=== PATIENT | female | born 2005 | race Caucasian/White ===

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

== ENCOUNTER 2024-01-19 15:50 | Outpatient (CLI) | payer BC, SELFPAY ==
[2024-01-20 10:24] LABS: HIV (1&2) Antibody Rapid NON REACTIVE
[2024-01-21 13:02] LABS: HCV Ab Non Reactive (Non Reactive); Hepatitis B Surface Antigen Negative (Negative); Rapid Plasma Reagin Ab Titer Non Reactive titer (NonRea<1:1)
== END 2024-01-19 23:59 | disposition home or self-care (01) ==
LOC: LAB 15:51
PROVIDERS: PCP Physician Assistant; Visit Provider Obstetrics & Gynecology
DX: Z72.51 High risk heterosexual behavior (principal); Z01.84 Encounter for antibody response examination
CPT/HCPCS: 36415; 86593; 87340

== ENCOUNTER 2024-03-10 09:18 | Outpatient (CLI) | payer BC, SELFPAY ==
[2024-03-10 09:38] VITALS: BMI 21.2
[2024-03-10] MEDS: TUBERCULIN 5 UNITS/0.1ML 1ML VIAL ID (09:40)
== END 2024-03-10 23:59 | disposition home or self-care (01) ==
LOC: UTC.OUT 09:19
PROVIDERS: PCP Physician Assistant; Visit Provider Nurse Practitioner Family
DX: Z11.1 Encounter for screening for respiratory tuberculosis (principal)
CPT/HCPCS: 86580

== ENCOUNTER 2024-04-24 14:39 | Emergency (ER) | payer BC, SELFPAY ==
[2024-04-24 14:50] VITALS: BP 114/67; PULSE 82; RESP 20; TEMP 37; O2SAT 100; BMI 24.3
--- NOTE | 2024-04-24 15:01 | EXP.UTC ---
Discharge Plan Disposition Patient Disposition: Home, Self-Care Condition: Good Prescriptions Prescriptions: No Action Slynd 4 mg (28) tablet 4 mg PO DAILY Qty: 84 3RF propranolol 120 mg capsule,extended release 24hr See Rx Instructions .ROUTE .COMPLEX Qty: 90 0RF Dose Instruction: TAKE 1 CAPSULE BY MOUTH ONCE DAILY Rx Instructions: TAKE 1 CAPSULE BY MOUTH ONCE DAILY modafinil [Provigil] 200 mg tablet 200 mg PO DAILY Qty: 30 0RF Referrals Follow up/Referrals: Nataly Olvera PA [Primary Care Provider] - See instructions Activity Restrictions/Add. Instructions Additional Instructions/Restrictions: Go home lay down and sleep off remainder of migraine headache Follow up with your Family Doctor if Migraines continued to occur Return if needed Straight to ER if any life threatening symptoms Clinical Impressions Clinical Impression: Migraine Instructions Patient Instructions: Migraine -- Adult, DI for Migraine Print Language Print Language: Lebanese Discharge ED Provider: Aurora Rodriguez [facility] [place] Stated complaint: migraine headache Mode of Arrival: Ambulatory Source of Information: Patient and Parent(s) Limitations: No Limitations Time Seen by Provider: 04/24/24 15:01 Description of Symptoms (Recalled from Triage Doc. by RN): PATIENT C/O MIGRAINE X 1 WEEK HEENT Symptoms (Recalled from RN notes): Yes Resp Symptoms (Recalled from RN notes): No Skin Symptoms (Recalled from RN notes): No MS Symptoms (Recalled from RN notes): No Functional Status (Recalled from RN notes): WNL History of Present Illness Provider Complaint: Patient states that she has a hx of migraine headaches and she has had one for about a week and has harika putting off coming in and getting the migraine cocktail that usually helps her but today it was still bothering her so she came in to get the migraine cocktail to help with her migraine, States this headache is like others she has had in the past Related Data Previous Rx's ?Medication ?Instructions ?Recorded propranolol 120 mg capsule,24 See Rx Instructions .Route 01/08/24 hr,extended release .COMPLEX #90 caps drospirenone (contraceptive) 4 mg 4 mg PO DAILY control #84 01/19/24 (28) tablet (Slynd) tabs Provigil 200 mg tablet (modafinil) 200 mg PO DAILY #30 tabs 04/15/24 Allergies Allergy/AdvReac Type Severity Reaction Status Date / Time azithromycin [From ZITHROMAX] Allergy Unknown Verified 01/19/24 14:54 ibuprofen AdvReac Verified 01/19/24 14:54 Worker's Comp Is this a Worker's Comp case?: No [facility] Disclaimer: The information contained in this section may have been updated after the patient was seen, as this information can be updated by other users. Medical History Urinary tract infection Kidney stone Migraine Bartholin's gland abscess Vitamin D deficiency Surgical History History of tonsillectomy History of appendectomy Social History Smoking Status: Never smoker second hand exposure: No alcohol intake: never substance use type: denies use current occupational status: employed and student Travel in the last 8 weeks: None household members: family housing: house current occupation: [employer] current occupational exposures/hazards: No caffeine: Yes ROS Obtained: Yes All systems reviewed & no additional complaints except as documented and Yes Systems reviewed as appropriate & no additional complaints except as documented Constitutional Constitutional: Reports system reviewed and no additional complaints, except as documented, Reports as per HPI and Reports headache(s) Eyes Eyes: Reports system reviewed and no additional complaints, except as documented, Reports as per HPI, Denies blurry vision, Denies change in vision and Denies loss of vision ENT Ears, Nose, Mouth, and Throat: Reports system reviewed and no additional complaints, except as documented, Reports as per HPI and Reports headache(s) Cardiovascular Cardiovascular: Reports system reviewed and no additional complaints, except as documented and Reports as per HPI Respiratory Respiratory: Reports system reviewed and no additional complaints, except as documented and Reports as per HPI Gastrointestinal Gastrointestingal: Reports system reviewed and no additional complaints, except as documented and as per HPI Neurologic Neurologic: Reports headache(s) and Denies loss of vision Physical Exam General General appearance: alert and in no apparent distress Head Head exam: atraumatic and normocephalic Eye Eye exam: Present normal appearance, PERRL and EOMI ENT ENT exam: Present mucous membranes moist Neck Neck exam: Present normal inspection, full ROM and trachea midline; Absent tenderness Chest Chest inspection: Present normal inspection and symmetric chest wall rise Respiratory Respiratory exam: Present normal lung sounds bilaterally; Absent respiratory distress or wheezes Cardiovascular Cardiovascular exam: Present regular rate, normal rhythm and normal heart sounds Neurological Exam Neurological exam: Present alert, oriented X3 and normal gait Medical Decision Making Medical Records Screening: Per USPSTF and CDC recommendations, given the prevalence of disease in our region, it is our hospital?s policy to screen for HIV and viral Hepatitis for all patients aged 18 and over and those with ongoing risk factors. Yonathan Inquiry Pt receiving controlled substance: No Yonathan was queried for this patient: No Vital Signs: 04/24/24 14:50 Temperature 98.6 F Temperature Source Oral Pulse Rate [Left Brachial] 82 Respiratory Rate 20 Blood Pressure [Left Arm] 114/67 Blood Pressure Mean [Left Arm] 82 Blood Pressure Source [Left Arm] Automatic Cuff Blood Pressure Position [Left Arm] Sitting 02 Sat by Pulse Oximetry 100 Oxygen Delivery Method Room Air Lab Data Lab results reviewed: Yes I reviewed the patient's lab results. Medical Decision Narrative: Patient states that she cannot take oral Ibuprofen it hurts her stomach but has taken Toradol in the past without complications or reactions
[2024-04-24] MEDS: KETOROLAC 30MG/ML VIAL 30 MG IM (15:27)
[2024-04-24] MEDS: ONDANSETRON 4MG ODT 4 MG SL (15:27)
[2024-04-24] MEDS: diphenhydrAMINE 50MG/ML VIAL 25 MG IM (15:27)
[2024-04-24 15:28] LABS: UTC Pregnancy Test, Urine Negative (Negative)
[2024-04-24 15:39] VITALS: BP 114/67; PULSE 82; RESP 20; TEMP 37; O2SAT 100
== END 2024-04-24 15:43 | disposition home or self-care (01) ==
PROVIDERS: Emergency Provider Nurse Practitioner; PCP Physician Assistant
DX: G43.909 Migraine, unspecified, not intractable, without status migrainosus (principal)
CPT/HCPCS: 81025; 96372; 99212; 99214; G0463; J1200; J1885; Q0162

== ENCOUNTER 2024-05-08 08:29 | Emergency (ER) | payer BC, SELFPAY ==
[2024-05-08 08:45] VITALS: BP 137/83; PULSE 75; RESP 20; TEMP 37.2; O2SAT 100; BMI 24.3
--- NOTE | 2024-05-08 09:00 | ED_ITS ---
Discharge Plan Disposition Patient Disposition: Home, Self-Care Condition: Good Prescriptions Prescriptions: New metronidazole 500 mg tablet 500 mg PO BID 7 Days Qty: 14 0RF fluconazole 150 mg tablet 150 mg PO Q3D Qty: 2 0RF Rx Instructions: Take one now and may repeat in 3 days (72 hours) if still having symptoms No Action Slynd 4 mg (28) tablet 4 mg PO DAILY Qty: 84 3RF modafinil [Provigil] 200 mg tablet 200 mg PO DAILY Qty: 30 0RF propranolol 120 mg capsule,extended release 24 hr 120 mg PO DAILY Rx Instructions: TAKE 1 CAPSULE BY MOUTH ONCE DAILY Referrals Follow up/Referrals: Nataly Olvera PA [Primary Care Provider] - See instructions Activity Restrictions/Add. Instructions Additional Instructions/Restrictions: Take medication as prescribed Follow up with OBGYN if no improvement or any worsening of symptoms Your Testing should be back in the next 3-5 days follow up for treatment if anything was positive Follow up with Family Doctor if needed Clinical Impressions Clinical Impression: Vaginal Discharge Instructions Patient Instructions: Metronidazole, DI for Bacterial Vaginosis Print Language Print Language: Turkish Discharge ED Provider: Aurora Rodriguez [facility] [place] General Stated complaint: tested for bv urine std Mode of Arrival: Ambulatory Source of Information: Patient Limitations: No Limitations Time Seen by Provider: 05/08/24 09:00 Description of Symptoms (Recalled from Triage Doc. by RN): PATIENT REQUESTING BV AND STD TESTING HEENT Symptoms (Recalled from RN notes): No Resp Symptoms (Recalled from RN notes): No Skin Symptoms (Recalled from RN notes): No MS Symptoms (Recalled from RN notes): No Functional Status (Recalled from RN notes): WNL History of Present Illness Provider Complaint: Patient states that she thinks she may have BV states that she has been having a water discharge and noticed a foul smell States feels like she can smell herself just sitting there states she has had BV a couple times and feels like it does then Also wants to get checked for STD's Related Data Home Medications ?Medication ?Instructions ?Recorded ?Confirmed propranolol 120 mg capsule,24 120 mg PO DAILY 05/08/24 05/08/24 hr,extended release Previous Rx's ?Medication ?Instructions ?Recorded drospirenone (contraceptive) 4 mg 4 mg PO DAILY control #84 01/19/24 (28) tablet (Slynd) tabs Provigil 200 mg tablet (modafinil) 200 mg PO DAILY #30 tabs 04/15/24 fluconazole 150 mg tablet 150 mg PO Q3D 2 doses #2 tabs 05/08/24 metronidazole 500 mg tablet 500 mg PO BID 7 days #14 tabs 05/08/24 Allergies Allergy/AdvReac Type Severity Reaction Status Date / Time azithromycin [From ZITHROMAX] Allergy Unknown Verified 01/19/24 14:54 ibuprofen AdvReac Verified 01/19/24 14:54 Worker's Comp Is this a Worker's Comp case?: No [facility] Disclaimer: The information contained in this section may have been updated after the patient was seen, as this information can be updated by other users. Medical History Urinary tract infection Kidney stone Migraine Bartholin's gland abscess Vitamin D deficiency Surgical History History of tonsillectomy History of appendectomy Social History Smoking Status: Never smoker second hand exposure: No alcohol intake: never substance use type: denies use current occupational status: employed and student Travel in the last 8 weeks: None household members: family housing: house current occupation: [employer] current occupational exposures/hazards: No caffeine: Yes ROS Obtained: Yes All systems reviewed & no additional complaints except as docu mented and Yes Systems reviewed as appropriate & no additional complaints except as documented Constitutional Constitutional: Reports system reviewed and no additional complaints, except as documented and Reports as per HPI ENT Ears, Nose, Mouth, and Throat: Reports system reviewed and no additional c omplaints, except as documented and Reports as per HPI Cardiovascular Cardiovascular: Reports system reviewed and no additional complaints, except as documented and Reports as per HPI Respiratory Respiratory: Reports system reviewed and no additional complaints, except as documented and Reports as per HPI Gastrointestinal Gastrointestingal: Reports system reviewed and no additional complaints, except as documented and as per HPI Genitourinary Female Genitourinary: Reports system reviewed and no additional complaints, except as documented, Reports as per HPI, Reports vaginal discharge (watery discharge), Reports vaginal odor and Reports vaginal pruritus Physical Exam General General appearance: alert and in no apparent distress ENT ENT exam: Present mucous membranes moist Respiratory Respiratory exam: Present normal lung sounds bilaterally; Absent respiratory distress or wheezes Cardiovascular Cardiovascular exam: Present regular rate, normal rhythm and normal heart sounds External exam: Present other (deferred) Neurological Exam Neurological exam: Present alert, oriented X3 and normal gait Medical Decision Making Medical Records Screening: Per USPSTF and CDC recommendations, given the prevalence of disease in our region, it is our hospital?s policy to screen for HIV and viral Hepatitis for all patients aged 18 and over and those with ongoing risk factors. Yonathan Inquiry Pt receiving controlled substance: No Yonathan was queried for this patient: No Vital Signs: 05/08/24 08:45 Temperature 98.9 F Temperature Source Oral Pulse Rate [Left Brachial] 75 Respiratory Rate 20 Blood Pressure [Left Arm] 137/83 Blood Pressure Mean [Left Arm] 101 Blood Pressure Source [Left Arm] Automatic Cuff Blood Pressure Position [Left Arm] Sitting 02 Sat by Pulse Oximetry 100 Oxygen Delivery Method Room Air Medical Decision Narrative: Patient reports whiteish watery discharge itching with foul odor with hx of BV reports feels like it did when she had BV
[2024-05-08 09:15] VITALS: BP 137/83; PULSE 75; RESP 20; TEMP 37.2; O2SAT 100
[2024-05-11 02:15] LABS: Neisseria gonorrhoeae, NAA Negative (Negative); Trichomonas Vaginalis, NAA Negative (Negative)
== END 2024-05-08 09:18 | disposition home or self-care (01) ==
PROVIDERS: Emergency Provider Nurse Practitioner; PCP Physician Assistant
DX: R87.9 Unspecified abnormal finding in specimens from female genital organs (principal)
CPT/HCPCS: 87491; 87591; 87661; 99213; G0381

== ENCOUNTER 2024-05-12 15:24 | Outpatient (CLI) | payer BC, SELFPAY ==
[2024-05-12 15:59] LABS: Basophils # 0.1 K/mm3 (0-0.2); Basophils % 0.6 % (0.1-2.0); Eosinophils # 0.2 K/mm3 (0.0-0.4); Eosinophils % 2.2 % (0.1-12.0); Hematocrit 44.7 % (37.0-47.0); Hemoglobin 15.2 g/dL (12.2-16.2); Lymphocytes # 2.4 K/mm3 (0.7-4.5); Lymphocytes % 24.6 % (10-50); Mean Corpuscular Hemoglobin 32.7 pg (27.0-31.2); Mean Corpuscular Volume 96.3 fl (81-99); Mean Platelet Volume 9.2 fl (7.4-10.4); Monocytes # 0.7 K/mm3 (0.1-1.0); Monocytes % 6.9 % (1.7-9.3); Neutrophils # 6.3 K/mm3 (1.8-7.8); Neutrophils % 65.8 % (37.0-80.0); Platelet Count 236 K/mm3 (142-424); Red Blood Count 4.65 M/mm3 (4.20-5.40); Red Cell Distribution Width 13.2 % (11.5-17.5); White Blood Count 9.6 K/mm3 (4.5-13.0)
[2024-05-12 16:24] LABS: Alanine Aminotransferase 12 U/L (12-78); Albumin Level 4.5 g/dl (3.5-5.0); Alkaline Phosphatase 37 U/L (38-126); Anion Gap 10.4 mEq/L (5-15); Aspartate Amino Transferase 20 U/L (14-36); Bilirubin,Total 0.5 mg/dl (0.2-1.3); Blood Urea Nitrogen 12 mg/dl (7-17); Calcium 9.4 mg/dl (8.4-10.2); Carbon Dioxide 26 mmol/L (22.0-30.0); Chloride 107 mmol/L (98-107); Estimated Glomerular Filt Rate 107 ml/min (>60); GFR (African American) 129 ML/MIN (>60); Globulin 2.3 g/dL (1.3-3.2); Glucose 82 mg/dl (74-100); Potassium 4.4 mmoL/L (3.5-5.1); Sodium 139 mmol/L (136-145); Total Protein,Serum 6.8 g/dl (6.3-8.2)
[2024-05-12 16:50] LABS: HCG,Quantitative < 2 mIU/ml (0-5.42)
== END 2024-05-12 23:59 | disposition home or self-care (01) ==
LOC: LAB 15:25
PROVIDERS: PCP Physician Assistant; Visit Provider Obstetrics & Gynecology
DX: N75.1 Abscess of Bartholin's gland (principal); Z01.818 Encounter for other preprocedural examination
CPT/HCPCS: 36415; 80053; 84702; 85025

== ENCOUNTER 2024-05-13 10:32 | Day surgery (SDC) | payer BC, SELFPAY ==
[2024-05-12 16:17] VITALS: BMI 24.3
[2024-05-13 10:58] VITALS: BP 117/59; PULSE 76; RESP 18; TEMP 36.9; O2SAT 99
--- NOTE | 2024-05-13 11:01 | EXP.ANES.CKL ---
[facility] Disclaimer: The information contained in this section may have been updated after the patient was seen, as this information can be updated by other users. Medical History Bartholin's gland abscess Urinary tract infection Kidney stone Migraine Vitamin D deficiency Surgical History History of tonsillectomy History of appendectomy Family History Other Family history of DVT Family history of stroke Social History Smoking Status: Never smoker second hand exposure: No alcohol intake: never substance use type: denies use current occupational status: employed and student Travel in the last 8 weeks: None household members: family housing: house current occupation: [employer] current occupational exposures/hazards: No caffeine: Yes [facility] Anesthesia Checklist Patient Identification Patient Identification: Arm Band, Family and Verbal (Name & ) Structural Data Admitted From: Home Planned Operative Procedure/s: I&D Bartholin's cyst Consent for Planned Operative Procedure(s) Verified: Yes Verified Documents: Surgical Consent and History and Physical NPO Status Verified Time NPO: 23:00 Chart Verification Results Verified: CBC, BMP, Chest Xray and HCG Additional verifications Patient : No Anesthesia Reactions: No Cardiovascular Assessment Heart Sounds: S1 & S2 Pulse Rhythm: Irregular Peripheral Edema: No Airway Assessment Mallampati Score:: Class II C-Spine Mobility Assessed: Yes (FROM demonstrated) TMJ Mobility Assessed: Yes Dentition: Good Dentition (Nothing loose per pt.) Neurological Assessment Level of Consciousness: Awake, Alert, Appropriate and Follows Commands Hx Seizures: No Numbness or tingling in extremities: No Anesthesia Plan Anesthesia Risk discussed: Yes Anesthesia Plan: Verified ASA Class: II Anesthesia Type: General
[2024-05-13] MEDS: LIDOCAINE 1% W/EPI 1:100,000 20ML VIAL 20 ML (12:23)
[2024-05-13 12:44] VITALS: BP 87/44; PULSE 85; RESP 15; TEMP 36.6; O2SAT 95
--- NOTE | 2024-05-13 12:51 | EXP.OP.NOTE ---
Date of procedure: 05/13/24 Pre-op Diagnosis:: 4 cm right Bartholin gland abscess Post-op Diagnosis:: 4 cm right Bartholin gland abscess Procedure performed:: Right Bartholin gland incision and drainage Surgeon:: Marian Dubon DO Mandarin Tutor(s):: Liseth Levi DO ENGINEERING SPECIALIST:: Junie Carlos Anesthesia: other (See anesthesia documentation) Estimated blood loss (mL): 10 Clinical Note:: Karol Lockhart is a 19-year-old G0 who presents the office with severe right vaginal/vulvar pain. 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 She was started on pain medication and p.o. antibiotics yesterday. Patient was thoroughly consented and elected to proceed with in OR for incision and drainage. The patient was counseled on the risk of recurrence and encouraged to proceed with marsupialization but declined. Operative findings:: Large 4 cm right Bartholin gland abscess with purulent drainage. Operative note:: The patient was prepped and draped in a sterile fashion using yellowfin stirrups and placed in the dorsolithotomy position. A timeout was performed. The site was anesthetized with 1% lidocaine with epinephrine. A small 1 cm linear incision was made and the abscess was expressed. Wound cultures were collected. The abscess was thoroughly explored with a hemostat to ensure all loculations were removed. The area was copiously irrigated with a liter of saline via an Asepto syringe. There is a small amount of bleeding from the skin edges which were made hemostatic with the Bovie and 2 simple interrupted 4-0 Vicryl stitches. No packing was required. She was awakened from anesthesia in stable. Patient will be discharged home Condition: stable Disposition: same day Complications:: None
[2024-05-13 12:54] VITALS: BP 89/41; PULSE 87; RESP 16; O2SAT 100
[2024-05-13 13:05] VITALS: BP 92/43; PULSE 82; RESP 16; O2SAT 100
[2024-05-13 13:15] VITALS: BP 120/44; PULSE 84; RESP 16; O2SAT 100
[2024-05-13 13:25] VITALS: BP 117/48; PULSE 85; RESP 16; O2SAT 100
== END 2024-05-13 13:56 | disposition home or self-care (01) ==
PROVIDERS: PCP Physician Assistant; Visit Provider Obstetrics & Gynecology
PROC: (CPT 56420; principal; 2024-05-13 12:00)
DX: N75.1 Abscess of Bartholin's gland (principal)
CPT/HCPCS: 56420; 87070; 87075; 87205; J1100; J1885; J2250; J2405; J3010

== ENCOUNTER 2024-08-17 13:44 | Outpatient (CLI) | payer OTHER, SELFPAY ==
[2024-08-17 14:10] VITALS: BMI 24.7
[2024-08-17 14:32] LABS: Basophils % 0.4 % (0.1-2.0); Eosinophils # 0.1 K/mm3 (0.0-0.4); Hematocrit 39.8 % (37.0-47.0); Hemoglobin 13.4 g/dL (12.2-16.2); Lymphocytes # 2.1 K/mm3 (0.7-4.5); Lymphocytes % 31.1 % (10-50); Mean Corpuscular HGB Conc 33.7 g/dL (31.8-35.4); Mean Corpuscular Hemoglobin 31.4 pg (27.0-31.2); Mean Corpuscular Volume 93.2 fl (81-99); Mean Platelet Volume 11.4 fl (7.4-10.4); Monocytes # 0.6 K/mm3 (0.1-1.0); Monocytes % 8.5 % (1.7-9.3); Neutrophils % 58.7 % (37.0-80.0); Platelet Count 252 K/mm3 (142-424); Red Blood Count 4.27 M/mm3 (4.20-5.40); Red Cell Distribution Width 12.5 % (11.5-17.5); White Blood Count 6.9 K/mm3 (4.5-13.0)
[2024-08-17 14:34] LABS: Albumin Level 4.4 g/dl (3.5-5.0); Chloride 107 mmol/L (98-107); Potassium 4.1 mmoL/L (3.5-5.1); Sodium 141 mmol/L (136-145)
[2024-08-17 14:36] LABS: Blood Urea Nitrogen 8 mg/dl (7-17); Creatinine Clearance Estimated 129 mL/min (50-200); Estimated Glomerular Filt Rate 107 ml/min (>60); GFR (African American) 129 ML/MIN (>60)
[2024-08-17 14:37] LABS: Alanine Aminotransferase 17 U/L (12-78); Albumin/Globulin Ratio 1.8 (1.1-1.8); Alkaline Phosphatase 46 U/L (38-126); Anion Gap 12.1 mEq/L (5-15); Aspartate Amino Transferase 21 U/L (14-36); Bilirubin,Total 0.3 mg/dl (0.2-1.3); Calcium 9.1 mg/dl (8.4-10.2); Carbon Dioxide 26 mmol/L (22.0-30.0); Globulin 2.4 g/dL (1.3-3.2); Glucose 86 mg/dl (74-100); Total Protein,Serum 6.8 g/dl (6.3-8.2)
[2024-08-17 14:55] LABS: HCG,Quantitative < 2 mIU/ml (0-5.42)
== END 2024-08-17 23:59 | disposition home or self-care (01) ==
LOC: PREOP 13:45
PROVIDERS: PCP Physician Assistant; Visit Provider Obstetrics & Gynecology
DX: N75.1 Abscess of Bartholin's gland (principal)
CPT/HCPCS: 80053; 84702; 85025

== ENCOUNTER 2024-08-18 10:42 | Day surgery (SDC) | payer OTHER, SELFPAY ==
[2024-08-17 14:11] VITALS: BMI 24.7
[2024-08-18] VITALS (15 sets, daily range): BP systolic 109–148; BP diastolic 58–82; PULSE 74–112; RESP 10–16; TEMP 36.3–36.9; O2SAT 98–100
[2024-08-18] MEDS: LACTATED RINGERS 1000ML 1,000 ML 25 ML IV (11:13)
--- NOTE | 2024-08-18 11:27 | EXP.ANES.CKL ---
[facility] Disclaimer: The information contained in this section may have been updated after the patient was seen, as this information can be updated by other users. Medical History Bartholin's gland abscess Urinary tract infection Kidney stone Migraine Vitamin D deficiency Surgical History (Updated 08/17/24 @ 13:59 by Slim Bejarano RN) History of eye surgery History of surgical removal of Bartholin’s gland cyst History of tonsillectomy History of appendectomy Family History Other Family history of DVT Family history of stroke Social History Smoking Status: Never smoker second hand exposure: No alcohol intake: never substance use type: denies use current occupational status: employed and student Travel in the last 8 weeks: None household members: family housing: house current occupation: [employer] current occupational exposures/hazards: No caffeine: Yes Have you lived/traveled outside [place] in past 30 days?: No Contact w/someone who lives/traveled outside US past 30 days?: No Exposure to someone with infectious disease in past 14 days?: No Do you have a fever (greater than 100.4 F or 38 C)?: No Have you tested positive for COVID-19: No Exposed to someone with COVID-19 in past 14 days?: No Do you have a sore throat?: No Do you have a cough?: No Do you have any weakness?: No Do you have any diarrhea?: No Are you experiencing any unusual bleeding?: No Do you have any muscle aches/pain?: No Do you have any abdominal pain?: No Are you experiencing loss of taste or smell?: No [facility] Anesthesia Checklist Patient Identification Patient Identification: Arm Band and Family Structural Data Admitted From: Home Planned Operative Procedure/s: I & D Bartholin abscess. Consent for Planned Operative Procedure(s) Verified: Yes Verified Documents: Surgical Consent and History and Physical NPO Status Verified Time NPO: 00:00 Additional verifications Patient : No Anesthesia Reactions: No Hx Blood Transfusions: No Blood Transfusion Reaction: No Cephalosporin Allergy: No Previous Colonoscopy: No Airway Assessment Mallampati Score:: Class II C-Spine Mobility Assessed: Yes TMJ Mobility Assessed: Yes Neurological Assessment Level of Consciousness: Awake, Alert, Appropriate and Follows Commands Hx Seizures: No Numbness or tingling in extremities: No Anesthesia Plan Anesthesia Risk discussed: Yes ASA Class: I Anesthesia Type: General
[2024-08-18] MEDS: LIDOCAINE 1% W/EPI 1:100,000 20ML VIAL 20 ML (12:35)
--- NOTE | 2024-08-18 13:09 | EXP.ANES.I ---
[facility] Anesthesia Record Part I Anesthesia Record I Intake, IV Amount: 200 Hydration: Adequate Estimated blood loss (mL): 4 Urine output (mL): 0 Blood Products used (#): none Blood Pressure: 116/70 SaO2: 100 Pulse Rate: 88 Airway Patency: Patent Respiratory Rate: 10 Temperature: 97.7 F Patient is:: Drowsy and Stable Stable to PACU at:: 13:05
--- NOTE | 2024-08-18 13:16 | P.OP_ITS ---
Date of procedure: 08/18/24 Pre-op Diagnosis:: Left Bartholin gland abscess Post-op Diagnosis:: Left Bartholin gland abscess Procedure performed:: Bartholin glands marsupialization Surgeon:: Marian Dubon DO First Assist(s):: Liseth Levi DO SENIOR APPLICATIONS ARCHITECT:: Enoc Buckner Anesthesia: GETA Estimated blood loss (mL): 50 Operative findings:: Once the patient was prepped and draped under anesthesia a thorough vaginal exam was completed and the area was noted to have started to spontaneously drain and was significantly reduced in size from exam in the office the prior day Operative note:: Karol was taken to the operating room and prepped and draped in the normal sterile fashion. She was placed in the dorsolithotomy position using yellowfin stirrups. SCDs were placed. She was placed in slight Trendelenburg for better visualization. The area was numbed with 8 mL of lidocaine with epinephrine. A thorough vaginal exam was completed and the abscess was less than 1 cm. An incision was made over the apex of the abscess, approximately 1 cm in length. The cyst wall was grasped and gently dissected and then transected. There was no purulent material that was able to be drained. Using a 2-0 Vicryl the cyst wall was marsupialized to the vaginal epithelial tissue. This concluded the procedure and the patient was taken to the recovery room in stable condition. All counts were correct x 2, per nursing. Condition: stable Disposition: PACU Complications:: None
[2024-08-18] MEDS: KETOROLAC 30MG/ML VIAL 30 MG IV (13:40)
[2024-08-18] MEDS: MORPHINE 2MG/ML SYRINGE 1 MG IV ×2 (13:46→13:51)
[2024-08-18] MEDS: HYDROMORPHONE 2MG/ML SYRINGE 0.5 MG IV ×4 (14:01→14:20)
--- NOTE | 2024-08-18 15:24 | P.PNANES_ITS ---
[facility] Anesthesia Record Part II Anesthesia Record Part II Discharge Time: 14:35 Destination: Surgical Day Care (OP Surgery) PACU nurse assessment reviewed?: Yes Patient Condition:: Good Anesthesia Complications:: None Swallowing reflex intact?: Yes Airway Patency: Patent Cyanosis?: No Blood Pressure: 139/62 SaO2: 98 Respiratory Rate: 16 Pulse Rate: 112 Temperature: 98.5 F Mental Status: Alert & Oriented Pain level:: 6 Nausea and/or vomitting:: None Intake, IV Amount: 0 Hydration: Adequate
== END 2024-08-18 15:20 | disposition home or self-care (01) ==
LOC: OR 10:43
PROVIDERS: PCP Physician Assistant; Visit Provider Obstetrics & Gynecology
PROC: (CPT 56440; principal; 2024-08-18 12:00)
DX: N75.1 Abscess of Bartholin's gland (principal)
CPT/HCPCS: 56440; J1100; J1171; J1200; J1885; J2250; J2270; J2405; J3010; J7120

== ENCOUNTER 2024-11-01 16:16 | Outpatient (CLI) | payer OTHER, SELFPAY ==
[2024-11-02 15:14] LABS: H. pylori Stool Ag, EIA Negative (Negative)
[2024-11-08 15:32] LABS: Calprotectin, Fecal 401 ug/g (0-120)
== END 2024-11-01 23:59 | disposition home or self-care (01) ==
PROVIDERS: Internal Medicine; PCP Physician Assistant; Visit Provider Internal Medicine
DX: R19.7 Diarrhea, unspecified (principal)
CPT/HCPCS: 83993; 87338

== ENCOUNTER 2024-11-15 15:32 | Outpatient (CLI) | payer OTHER, SELFPAY ==
[2024-11-15 17:09] LABS: Albumin Level 4.5 g/dl (3.5-5.0); Chloride 108 mmol/L (98-107); Potassium 3.9 mmoL/L (3.5-5.1); Sodium 142 mmol/L (136-145)
[2024-11-15 17:12] LABS: Alanine Aminotransferase 18 U/L (12-78); Albumin/Globulin Ratio 1.9 (1.1-1.8); Alkaline Phosphatase 48 U/L (38-126); Anion Gap 10.9 mEq/L (5-15); Aspartate Amino Transferase 25 U/L (14-36); Bilirubin,Total 0.4 mg/dl (0.2-1.3); Blood Urea Nitrogen 11 mg/dl (7-17); Carbon Dioxide 27 mmol/L (22.0-30.0); Estimated Glomerular Filt Rate 107 ml/min (>60); GFR (African American) 129 ML/MIN (>60); Globulin 2.4 g/dL (1.3-3.2); Total Protein,Serum 6.9 g/dl (6.3-8.2)
[2024-11-15 17:13] LABS: Glucose 74 mg/dl (74-100)
== END 2024-11-15 23:59 | disposition home or self-care (01) ==
LOC: LAB 15:32
PROVIDERS: PCP Physician Assistant; Visit Provider Internal Medicine
DX: R19.5 Other fecal abnormalities (principal); R19.7 Diarrhea, unspecified
CPT/HCPCS: 36415; 80053

== ENCOUNTER 2025-02-20 16:46 | Outpatient (CLI) | payer OTHER, SELFPAY ==
--- OUTSIDE RECORDS SUMMARY | 2024-12-28 10:20 | XMS_ITS | Encounter Summary ---
Author Organization [facility] Address [address] [place] [address] Care Team Providers Care Produce Shipper Name Role Phone Nataly Olvera ISI Primary Care Provider [phone] Reason for Referral * Consultation (Routine) - Authorized Specialty Diagnoses / Procedures Referred By Candy jain Referred To Contact Diagnoses Diarrhea, unspecified type Chandrakant Mar MD [address] [address] Phone: tel: fax: Referral ID Status Reason Start Date Expiration Date V isits Requested Visits Authorized [id number] Authorized 12/28/2024 06/29/2026 1 1 * Imaging (Routine) - Closed Specialty Diagnoses / Procedures Referred By Candy jain Referred To Contact Gastroenterology Diagnoses Diarrhea, unspecified type Procedures Capsule Endoscopy Chandrakant Mar MD [address] [address] Phone: tel: fax: Referral ID Status Reason Start Date Expiration Date V isits Requested Visits Authorized [id number] Closed Specialty Services Required 12/28/2024 06/29/2026 1 1 Reason for Visit * Reason Comments Helicobacter positive gastritis Encounter Details Date Type Department Care Team (Late st Contact Info) Description 12/28/2024 10:20 AM EDT Office Visit [facility] [address] [place] [address] Iza Parks MD [address] [place] [address] Diarrhea, unspecified type (Primary Dx) Social History Tobacco Use Types Packs/Day Years Used Date Smoking Tobacco: Never Passive Smoke Exposure: Past Smokeless Tobacco: Never Tobacco Cessation:Counseling Given: Not Answered Alcohol Use Standard Drinks/Week Comments Never 0 (1 standard drink = 0.6 oz pur e alcohol) PHQ-2 Answer Date Recorded Patient Health Questionnaire-2 Score 0 12/28/2024 PHQ-9 Answer Date Recorded Patient Health Questionnaire-9 Score 0 12/28/2024 PHQ-2A Answer Date Recorded Depression Risk 0 05/25/2024 Comments Unknown Sex and Gender Information Value Date Recorded Sex Assigned at Female 05/19/2021 1:20 PM EDT Legal Sex Female 7:08 PM EDT Gender Identity Female 05/19/2021 1:20 PM EDT Sexual Orientation Straight 05/19/2021 1: 20 PM EDT documented as of this encounter Last Filed Vital Signs Vital Sign Reading Time Taken Comments Blood Pressure 99/78 12/28/2024 10:35 AM EDT Pulse 76 12/28/2024 10:35 AM EDT Temperature 36.8 C (98.3 F) 12/28/2024 10:35 AM EDT Respiratory Rate - - Oxygen Saturation 100% 12/28/2024 10: 35 AM EDT Inhaled Oxygen Concentration - - Weight 64.7 kg (142 lb 10.2 oz) 025 10:35 AM EDT Height 160 cm (5' 3 ) 12/28/2024 10:35 AM EDT Body Mass Index 25.27 12/28/2024 10:35 AM EDT documented in this encounter Functional Status * Over the past 2 weeks, how often have you been bothered by any of the following problems? Question Answer Date of Assessment Author Little interest or pleasure in doing things Not at all 12/28/2024 10:45 AM EDT David Alexandra Feeling down, depressed, or hopeless Not at all 12/28/2024 10:45 AM EDT David Alexandra Patient Health Questionnaire -2 Score 0 12/28/2024 10:45 AM EDT David Alexandra * Question Answer Date of Assessment Author Trouble falling or staying asleep, or sleeping too much Not at all 12/28/2024 10:45 AM EDT David Alexandra Feeling tired or having aniya le energy Not at all 12/28/2024 10:45 AM EDT David Alexandra Poor appetite or overeating Not at all 12/28/2024 10 :45 AM EDT David Alexandra Feeling bad about yourself - or that you are a failure or have let yourself or your family down Not at all 12/28/2024 10:45 AM EDT David Pinon Trouble concentrating on thi ngs, such as reading the newspaper or watching television Not at all 12/28/2024 10:45 AM EDT David Alexandra Moving or speaking so slowly that other people could have noticed? Or the opposite - being so fidgety or restless that you have been moving around a lot more than usual. Not at all 12/28/2024 10:45 AM EDT David Alexandra Thoughts that you would be b jason off or hurting yourself in some way Not at all 12/28/2024 10:45 AM EDDavid Finney Patient Health Questionnaire -9 Score 0 12/28/2024 10:45 AM EDT David Alexandra * If you checked off any problems on this questionnaire so far, Question Answer Date of Assessment Author How difficult have these problems made it for you to do your work, take care of things at home, or get along with other people? Not difficult at all 12/28/2024 10:45 AM David Kumar documented as of this encounter Miscellaneous Notes * Patient Instructions - Iza Parks MD - 12/28/2024 10:20 AM EDT Please give stool kit for calprotectin and fax the calprotectin order to [facility] * Progress Notes - Iza Parks MD - 12/28/2024 10:20 AM EDT Patient: Karol Lockhart Date of : 2005 Outpatient Gastroenterology and Hepatology clinic note Subjective: History of present illness: A 19 y.o. female with chronic abdominal pain, lower right before BM, and resolved after BM, and some upper abdominal pain. Reports alternating loose and formed stool in one day. No GI bleed. Today she still complains of diarrhea 5 out of 7 days. Fecal calprotectin 400 EGD and colonoscopy with H.pylori gastritis, normal duodenal biopsy. s/p Pylera and omeprazole for 2 weeks in 01/2024 Negative colonic random bx 01/2024 CT enterography: normal HIDA scan : normal No NSAIDs Review of Systems: General: No fever. No chills Ears: No hearing loss, tinnitus Eyes: No blurred vision, double vision, or scleral icterus Nose: No epistaxis, nasal congestion Throat: No sore throat CV: No chest pain, shortness of breath. Resp: No shortness of breath. No cough. GI: + abdominal pain. No nausea, vomiting, constipation, + diarrhea, or No GI bleeding. : No change in urine frequency and no dysuria. Skin: No rashes, bruising or jaundice Msk/Ext: No arthralgias. Neuro: No headaches, dizziness. Past Medical History[1] Surgical History[2] Family History[3] Social History[4] Allergies[5] Current Medications[6] Objective: Temp: [36.8 ??C (98.3 ??F)] 36.8 ??C (98.3 ??F) Heart Rate: [76] 76 BP: (99)/(78) 99/78 Weight: 64.7 kg (142 lb 10.2 oz) Body mass index is 25.27 kg/m??. Physical Examination: General Appearance: Awake, alert, oriented x 3, in no apparent distress Head: Normocephalic, atraumatic Lungs: Equal chest rise Heart: Normal HR Abdomen: Abdomen soft, non-tender. Bowel sounds normal. No rebound or guarding. No ascites, no organomegaly. Extremities: No lower extremity edema. Neurologic: Mental status intact. No gross neurologic deficits. Laboratory: CBC WBC ?? Hb ?? Plt ?? Hct ?? INR ?? PTT ?? BMP Na ?? Cl ?? BUN ?? Glu ?? K ?? Co2 ?? Cr ?? Mg ?? Phos ?? LFT AST ?? AlkPhos ?? T Prot ?? ALK ?? T Bili ?? Alb ?? Imaging: No images are attached to the encounter. === 12/02/24 === CT ENTEROGRAPHY - Narrative - CLINICAL INDICATION: elevated fecal calprotectin, diarrhea, negative colonoscopy TECHNIQUE: Multiple axial CT images were obtained from lung bases through pubic symphysis with administration of IV contrast, Omnipaque 300, 100 mL and with administration of neutral oral contrast. Reconstructed coronal CT images of the abdomen and pelvis also obtained. Reformatted images in the coronal and sagittal planes were generated from the axial data set to facilitate diagnostic accuracy. Total DLP (Dose-Length Product): 524.92 mGy.cm. Please note: The reported value represents the total of one or more individual components during the CT acquisition on this date and at this time, and as such, the same value may appear in more than one CT report depending on the interpreting/reporting physicians. COMPARISON: None. FINDINGS: GI Tract/Mesentery/Peritoneum: The large and small bowel appear normal in caliber. No wall thickening or hyperenhancement. No adjacent inflammatory edema. No suspicious peritoneal/mesenteric findings. Solid Abdominal Organs and Pelvic Organs: A 10 mm low-density lesion with suggestion of eccentric focus of internal enhancement possibly represents a hemangioma (series 3 image 102). No other suspicious liver lesions. Normal gallbladder. No biliary obstruction. Normal pancreas, spleen, kidneys and a drenal glands. Lymph Nodes/Vasculature: No lymphadenopathy by CT size criteria. The aortoiliac vasculature is patent and normal in caliber. Free Fluid: No ascites Musculoskeletal and Body Wall: No aggressive or suspicious findings. Lower Chest: No suspicious findings. - Impression - 1. No convincing evidence of active inflammatory bowel disease on the current examination. CRITICAL RESULT: No. COMMUNICATION: Per this written report. Drafted by Janey Cameron MD on 12/02/2024 9:56 AM Final report signed by Janey Cameron MD on 12/02/2024 10:03 AM Assessment and Plan: A 19 y.o. female with chronic abdominal pain, lower right before BM, and resolved after BM, and some upper abdominal pain. Reports alternating loose and formed stool in one day. No GI bleed. Today she still complains of diarrhea 5 out of 7 days. Fecal calprotectin 400 EGD and colonoscopy with H.pylori gastritis, normal duodenal biopsy. s/p Pylera and omeprazole for 2 weeks in 01/2024 Negative colonic random bx 01/2024 CT enterography: normal HIDA scan : normal Chronic abdominal pain and diarrhea alternating with normal bowel movement Elevated fecal calprotectin Most likely IBS. Elevated calprotectin is non specific with negative findings so far. Plan - will plan for capsule endoscopy to rule out small bowel pathology - will repeat fecal calprotectin - check folate, vit D, vit B12 - low folate and vitamin D, will start supplement - start Elavil 10mg nightly RTC 4 months Patient seen by and discussed with Dr. Mar. [1] Past Medical History: Diagnosis Date Anxiety Brain concussion Fractures Wrist Headache Migraine Nystagmus Peptic ulceration Refractive error Urinary tract infection [2] Past Surgical History: Procedure Laterality Date ADENOIDECTOMY APPENDECTOMY N/A Appendectomy from [place] BARTHOLIN GLAND CYST EXCISION 08/2024 EYE SURGERY INCISION AND DRAINAGE, ABCESS 05/2024 STRABISMUS SURGERY Bilateral 06/2022 TONSILECTOMY, ADENOIDECTOMY, BILATERAL MYRINGOTOMY AND TUBES N/A Tonsillectomy With Adenoidectomy from [employer] TONSILLECTOMY [3] Family History Problem Relation Name Age of Onset Diabetes Mother Asia lockhart Hypertension Mother [place] lockhart Kidney Stones Mother [place] lockhart Glaucoma Mother [place] lockhart Arthritis Mother [place] lockhart Blood clots Father Blood clots Sister Clotting disorder Sister Blood clots Paternal Grandmother Ulcerative colitis Cousin Blood clots Other Clotting disorder Other Diabetes Other Hypertension Other Stroke Maternal Grandmother Hannah linn [4] Social History Tobacco Use Smoking status: Never Passive exposure: Past Smokeless tobacco: Never Vaping Use Vaping status: Never Used Substance Use Topics Alcohol use: Never Drug use: Never [5] Allergies Allergen Reactions Sucralfate Hives and Swelling Facial swelling, hives Azithromycin Other - please document in the comment field and Rash rash Ibuprofen Unknown - Patient states they do not know rxn details Nsaids Other - please document in the comment field [6] Current Outpatient Medications: Drospirenone (Slynd) 4 MG tablet, Take by mouth., Disp: , Rfl: modafinil (Provigil) 200 MG tablet, , Disp: , Rfl: propranolol LA (Inderal LA) 120 MG 24 hr capsule, , Disp: , Rfl: Ubrelvy 100 MG tablet, Please take 1 tab at onset of headache and may repeat in 2 hours once for upto 10 times/month, Disp: 10 each, Rfl: 3 amitriptyline (Elavil) 10 MG tablet, Take 1 tablet by mouth nightly., Disp: 30 tablet, Rfl: 6 busPIRone (Buspar) 5 MG tablet, , Disp: , Rfl: cyanocobalamin (Vitamin B-12) 1000 MCG/ML injection, , Disp: , Rfl: Fremanezumab-vfrm (Ajovy) 225 MG/1.5ML solution auto-injector, Inject 1 pen. under the skin every 30 (thirty) days. (Patient not taking: Reported on 12/28/2024), Disp: 1.5 mL, Rfl: 5 levoFLOXacin (Levaquin) 500 MG tablet, , Disp: , Rfl: methocarbamol (Robaxin) 750 MG tablet, Take 1 tablet (750 mg) by mouth 3 (three) times a day if needed for muscle spasms for up to 3 days. For severe symptoms, you may take 2 tablets (1500 mg) by mouth 3 times daily. (Patient not taking: Reported on 12/28/2024), Disp: 9 tablet, Rfl: 0 uqxzewib-jvdidoiag-gyfugddwrjovkzrmut (Polydex) 3.5-77850-8.1 ointment ophthalmic ointment, Apply small amount to operative eye(s) 2 times per day for 1 week. (Patient not taking: Reported on 12/28/2024), Disp: 3.5 g, Rfl: 1 norethindrone (Micronor) 0.35 MG tablet, , Disp: , Rfl: oseltamivir (Tamiflu) 75 MG capsule, , Disp: , Rfl: oxyCODONE-acetaminophen (Percocet) 5-325 MG tablet, , Disp: , Rfl: polyethylene glycol (Golytely) 236 g solution, SEE PHARMACY NOTE FOR PT INSTRUCTIONS (Patient not taking: Reported on 12/28/2024), Disp: 4000 mL, Rfl: 0 QuickVue At-Home Covid-19 Test kit, , Disp: , Rfl: Rimegepant Sulfate 75 MG tablet dispersible, Take 75 mg by mouth if needed (for acute headache, notmore than 1 tablet for 24 hours). (Patient not taking: Reported on 12/28/2024), Disp: 15 tablet, Rfl:1 Xifaxan 550 MG tablet, Take 1 tablet (550 mg) by mouth 3 (three) times a day. (Patient not taking: Reported on 12/28/2024), Disp: , Rfl: Cosigned by Chandrakant Mar MD at 12/30/2024 11:24 AM EDT Associated attestation - Chandrakant Mar MD - 12/30/2024 11:24 AM EDT I saw and evaluated the patient with the resident/fellow. I discussed the case with the resident/fellow and agree with the findings and plan as documented. documented in this encounter Plan of Treatment Upcoming Encounters Date Type Department Care Team (Late st Contact Info) Description 05/02/2025 3:40 PM EDT Office Visit [facility] Medicine Specialties [address] [place] [address] Sarbjit Coker MD [address] [place] [address] 11/21/2025 3:15 PM EDT Office Visit [facility] - Pediatrics [address] [place] [address] Slim Riley MD [address] [facility] [address] [place] [phone] Scheduled Orders Name Type Priority Associated Diagnoses Orde r Schedule Calprotectin, Stool Lab Routine Diarrhea, unspecified type Expected: 12/28/2024 (Approximate), Expires: 07/01/2026 Scheduled Referrals Name Type Priority Associated Diagnoses Orde r Schedule Follow Up GI Outpatient Referral Routine Diarrhea, unspecified type Expected: 04/29/2025, Expires: 01/27/2026 documented as of this encounter Results * Capsule Endoscopy (02/16/2025 1:01 PM EDT) Anatomical Region Laterality Modality Endoscopy Narrative 02/16/2025 1:01 PM EDT Images from the original result were not included. Procedure: Wireless capsule endoscopy Indication: chronic abdominal pain Provider: Chandrakant Mar MD Referring MD Chandrakant Mar MD Medications: none Complications: No immediate complications Procedure: After informed consent was obtained, the patient was given the capsule enteroscope, which was swallowed. Findings: Images of the esophagus, stomach and small bowel were obtained from the swallowed capsule and reviewed. The first gastric image was captured 00:01:40 The first duodenal image was captured 01:00:01 The first cecal image was captured 06:35:09 Findings: Gastric erythema 00:50:58: Duodenum erythema 01:00:02 Impression: Gastric erythema Duodenum erythema and small erosion Recommendation: - avoid NSAIDs - follow up in GI clinic Attending participation: I personally reviewed all of the images and this is my reading. Chandrakant Mar MD GI PROCEDURE ORDERABLES Final Result * (ABNORMAL) Folate (12/28/2024 11:59 AM EDT) Folate, Serum 3.3(L) >4.6 ng/mL 12/28/2024 2:13 PM EDT [facility] Blood Venous blood specimen / Unknown Venipuncture / Unknown 12/28/2024 11:59 AM EDT 12/28/2024 11:59 AM EDT us Chandrakant Mar MD LAB BLOOD ORDERABLES Final Res ult Performing Organization Address [facility]/ZIP Co de Phone Number [facility] [address] [place] [address] * Vitamin D 25 Hydroxy (12/28/2024 11:59 AM EDT) Vitamin D 25 Hydroxy 20.9 20.0 - 80.0 ng/mL 12/28/2024 2:56 PM EDT [facility] Blood Venous blood specimen / Unknown Venipuncture / Unknown 12/28/2024 11:59 AM EDT 12/28/2024 11:59 AM EDT Narrative [facility] - 12/28/2024 2:56 PM EDT Testing performed on [employer] Doughmaker, standardized against NIST SRM 2972. When testing samples from patients whose predominant form of vitamin D is vitamin D2, such as patients receiving vitamin D2 supplementation, results that are subtherapeutic should be confirmed with another method, such as LC-MS/MS, before being used for patient management. Vitamin D, 25-Hydroxy reference range, age 18 years and up: Deficiency: <12 ng/mL Insufficiency: 12 to 19 ng/mL Sufficiency: 20 to 80 ng/mL Possible toxicity: >100 ng/mL us Chandrakant Mar MD LAB BLOOD ORDERABLES Final Res ult Performing Organization Address [facility] Co de Phone Number [facility] [address] [place] [phone] * Vitamin B12 (12/28/2024 11:59 AM EDT) Vitamin B12, Serum 295 210 - 1,033 pg/mL 12/28/2024 2:13 PM EDT [facility] Blood Venous blood specimen / Unknown Venipuncture / Unknown 12/28/2024 11:59 AM EDT 12/28/2024 11:59 AM EDT Chandrakant Mar MD LAB BLOOD ORDERABLES Final Res ult Performing Organization Address [facility] Co de Phone Number [facility] [address] [place] [address] documented in this encounter Visit Diagnoses Diagnosis Diarrhea, unspecified type- Primary Diarrhea, unspecified type documented in this encounter Additional Health Concerns Assessment Noted Time PHQ-9 Depression Total Score: 0 12/29/19 25 10:45 AM EDT A fall risk assessment has been complete d for the patient 12/28/2024 10:47 AM EDT A Body Mass Index follow-up plan has been documented for the patient 11/21/2024 2:46 PM EDT documented as of this encounter Care Teams Produce Shipper Relationship Specialty Start Date End Date Nataly Olvera PA [address] [place] [address] PCP - General 02/03/23 documented as of this encounter
--- OUTSIDE RECORDS SUMMARY | 2025-02-13 06:40 | XMS_ITS | Encounter Summary ---
Author Organization [facility] Address [address] [place] [address] Care Team Providers Care Wood Drill Operator Name Role Phone Nataly Olvera ISI Primary Care Provider [phone] Reason for Referral * Imaging (Routine) - Closed Specialty Diagnoses / Procedures Referred By Candy jain Referred To Contact Gastroenterology Diagnoses Diarrhea, unspecified type Procedures Capsule Endoscopy Chandrakant Mar MD [address] [address] Phone: tel: fax: Referral ID Status Reason Start Date Expiration Date V isits Requested Visits Authorized [id number] Closed Specialty Services Required 12/28/2024 06/29/2026 1 1 Reason for Visit * Imaging (Routine) - Closed Specialty Diagnoses / Procedures Referred By Candy jain Referred To Contact Gastroenterology Diagnoses Diarrhea, unspecified type Procedures Capsule Endoscopy Chandrakant Mar MD [address] [address] Phone: tel: fax: Referral ID Status Reason Start Date Expiration Date V isits Requested Visits Authorized [id number] Closed Specialty Services Required 12/28/2024 06/29/2026 1 1 Encounter Details Date Type Department Care Team (Latest Contact Info) Description 02/13/2025 6:40 AM EDT - 02/13/2025 11:59 PM EDT Hospital Encounter PAV S Endoscopy [address] [place] [address] Chandrakant Mar MD [address] [place] [phone] Diarrhea, unspecified type Discharge Disposition: Home or [...] MG tablet 05/18/2023 neomycin-polymyxi n-dexamethamethas one (Polydex) 3.5-05046-8.1 ointment ophthalmic ointment Apply small amount to [...] from the original note were not included. [id number] Capsule Endoscopy Capsule endoscopy is a test [...] test. This includes: ? Prescription medicines. ? Yzpu-ydp-dgmvxpe medicines, including aspirin or ibuprofen. ? Illegal [...] capsule. Last Reviewed Date: 2024 00:00:00 ?? [id number] [employer]. All rights reserved. This information is not [...] tablet No dose, route, or frequency recorded. fecdicad-pwbdifcuk-hveeuzexufylbylsmc (Polydex) 3.5-45250-7.1 ointment ophthalmic ointment Apply small amount to [...] Laterality Date ADENOIDECTOMY APPENDECTOMY N/A Appendectomy from [employer] BARTHOLIN GLAND CYST EXCISION 08/2024 EYE SURGERY INCISION AND DRAINAGE, ABCESS 05/2024 STRABISMUS SURGERY Bilateral 06/2022 TONSILECTOMY, ADENOIDECTOMY, BILATERAL MYRINGOTOMY AND TUBES N/A Tonsillectomy With Adenoidectomy from [employer] TONSILLECTOMY [4] Family History Problem Relation Name [...] Description 05/02/2025 3:40 PM EDT Office Visit [facility] Medicine Specialties [address] [place] [address] Sarbjit Coker MD [address] [place] [address] 11/21/2025 3:15 PM EDT Office Visit [facility] - Pediatrics [address] [place] [address] Slim Riley MD [address] [address] documented as of this encounter [...] documented as of this encounter Care Teams Wood Drill Operator Relationship Specialty Start Date End Date Nataly Olvera PA [address] [place] [address] PCP - General 02/03/23 documented as of this encounter
--- OUTSIDE RECORDS SUMMARY | 2025-02-20 16:48 | XMS_ITS | Encounter Summary ---
Author Organization Healthcare Address [address] [id number] Care Team Providers Care Staff Nurse Midwife Name Role Phone Nataly Olvera Primary Care Provider [phone] Encounter Details Date Type Department Care Team (Late st Contact Info) Description 11/16/2024 Results Follow-Up [facility] Medicine Specialties [address] [place] [id number] Iza Parks MD [address] [place] [address] Social History Tobacco Use Types Packs/Day Years Used Date Smoking Tobacco: Never Smokeless Tobacco: Never Alcohol Use Standard Drinks/Week [...] PM EDT documented as of this encounter Functional Status * Over the past 2 weeks, how often have you been bothered by any of the following problems? Question Answer Date of Assessment Author Little interest or pleasure in doing things Not at all 12/28/2024 10:45 AM EDT David Alexandra Feeling down, depressed, or hopeless Not at all 12/28/2024 10:45 AM CATRACHITAT David Alexandra Patient Health Questionnaire -2 Score 0 12/28/2024 10:45 AM CATRACHITAT David Alexandra * Question Answer Date of Assessment Author Trouble falling or staying asleep, or sleeping too much Not at all 12/28/2024 10:45 AM CATRACHITAT David Alexandra Feeling tired or having aniya le energy Not at all 12/28/2024 10:45 AM EDT David Alexandra Poor appetite or overeating Not at all 12/28/2024 10 :45 AM CATRACHITAT David Alexandra Feeling bad about yourself - or that you are a failure or have let yourself or your family down Not at all 12/28/2024 10:45 AM EDT David Pinon Trouble concentrating on thi ngs, such as reading the newspaper or watching television Not at all 12/28/2024 10:45 AM CATRACHITAT David Alexandra Moving or speaking so slowly that other people could have noticed? Or the opposite - being so fidgety or restless that you have been moving around a lot more than usual. Not at all 12/28/2024 10:45 AM David Kumar Thoughts that you would be b jason off or hurting yourself in some way Not at all 12/28/2024 10:45 AM David Kumar Patient Health Questionnaire -9 Score 0 12/28/2024 10:45 AM David Kumar * If you checked off any problems on this questionnaire so far, Question Answer Date of Assessment Author How difficult have these problems made it for you to do your work, take care of things at home, or get along with other people? Not difficult at all 12/28/2024 10:45 AM David Kumar documented as of this encounter Plan of Treatment Upcoming Encounters Date Type Department Care Team (Late st Contact Info) Description 05/02/2025 3:40 PM EDT Office Visit [facility] Medicine Specialties [address] [place] [address] Sarbjit Coker MD [address] [place] [address] 11/21/2025 3:15 PM EDT Office Visit [facility] - [facility] [address] [facility] [place] [address] Slim Riley MD [address] [facility] [address] [place] [address] documented as of this encounter Visit Diagnoses Not on filedocumented in this encounter Additional Health Concerns Assessment Noted Time A fall risk assessment has been complete d for the patient 05/25/2024 8:07 AM EDT A Body Mass Index follow-up plan has been documented for the patient 05/31/2024 11:14 AM EST documented as of this encounter Care Teams Staff Nurse Midwife Relationship Specialty Start Date End Date Nataly Olvera PA [address] [place] [address] PCP - General 02/03/23 documented as of this encounter
--- OUTSIDE RECORDS SUMMARY | 2025-02-20 16:48 | XMS_ITS | Clinical Summary ---
Author Organization [facility] Address [address] [place] [address] Care Team Providers Care Glass Blowing Instructor Name Role Phone WadeNataly ISI Primary Care Provider [phone] Allergies Active Allergy Reactions Criticality Noted Date Comments Azithromycin Other - please docum ent in the comment field,Rash Low 03/27/2015 rash Ibuprofen Unknown - Patient st ates they do not know rxn details Low 05/17/2023 Nsaids Other - please docum ent in the comment field Low 04/12/2021 Sucralfate Hives,Swelling High 05/14/2020 Facial swelling, hives Medications * This document contains information received from the source organization and may not represent a complete record from that organization. Drospirenone (Slynd) 4 MG tablet Take by mouth. Activ e Rimegepant Sulfate 75 MG tablet dispersibleInd ications:Migra ine without aura and without status migrainosus, not intractable Take 75 mg by mouth if needed (for acute headache, not more than 1 tablet for 24 hours). 15 tablet 1 03/14/20 22 Active Additional Information Patient not taking.Reported on 12/28/2024 neomycin-polym yxin-dexametha methasone (Polydex) 3.5-33924-9.1 ointment ophthalmic ointment Apply small amount to operative eye(s) 2 times per day for 1 week. 3.5 g 1 07/11/20 22 Active Additional Information Patient not taking.Reported on 12/28/2024 [employer] At-Home Covid-19 Test kit 03/14/20 Active norethindrone (Micronor) 0.35 MG tablet 08/12/19 Active oseltamivir (Tamiflu) 75 MG capsule 03/31/20 22 Active oxyCODONE-acet aminophen (Percocet) 5-325 MG tablet 07/11/20 22 Active methocarbamol (Robaxin) 750 MG tablet Take 1 tablet (750 mg) by mouth 3 (three) times a day if needed for muscle spasms for up to 3 days. For severe symptoms, you may take 2 tablets (1500 mg) by mouth 3 times daily. 9 tablet 01/29/20 23 Active Additional Information Patient not taking.Reported on 12/28/2024 cyanocobalamin (Vitamin B-12) 1000 MCG/ML injection 11/05/19 23 Active levoFLOXacin (Levaquin) 500 MG tablet 02/03/20 23 Active busPIRone (Buspar) 5 MG tablet 04/21/20 23 Active modafinil (Provigil) 200 MG tablet 05/18/20 23 Active propranolol LA (Inderal LA) 120 MG 24 hr capsule 05/11/20 23 Active Ubrelvy 100 MG tablet Please take 1 tab at onset of headache and may repeat in 2 hours once for up to 10 times/month 10 each 3 06/11/20 23 Active Fremanezumab-v frm (Ajovy) 225 MG/1.5ML solution auto-injector Inject 1 pen. under the skin every 30 (thirty) days. 1.5 mL 5 06/11/20 23 Active Additional Information Patient not taking.Reported on 12/28/2024 Xifaxan 550 MG tablet Take 1 tablet (550 mg) by mouth 3 (three) times a day. 10/05/19 24 Active amitriptyline (Elavil) 10 MG tablet Take 1 tablet by mouth nightly. 30 tablet 6 12/29/19 25 026 Active Additional Information Patient not taking.Reported on 02/13/2025 polyethylene glycol (Golytely) 236 g solution SEE PHARMACY NOTE FOR PT INSTRUCTIONS 4000 mL 01/19/20 24 025 Discontinued folic acid (Folvite) 1 MG tablet Take 1 tablet by mouth daily. 30 tablet 6 12/29/19 25 025 cholecalcifero l (Vitamin D-3) 25 MCG (1000 UT) tablet Take 2 tablets by mouth daily. 60 tablet 6 12/29/19 25 025 Active Problems Problem Noted Date Diagnosed Date Bartholin's gland abscess 06/11/20232022 Acute bronchitis 06/11/2023 06/11/2023 Allergic rhinitis 06/11/2023 06/11/2023 Anxiety 06/11/2023 06/11/2023 B12 deficiency anemia 06/11/2023 06/11/2023 Burn 06/11/2023 06/11/2023 COVID-19 06/11/2023 06/11/2023 Daytime somnolence 06/11/2023 06/11/2023 Fatigue 06/11/2023 06/11/2023 Gastroenteritis 06/11/2023 06/11/2023 Headache 06/11/2023 06/11/2023 Viral upper respiratory illness 06/11/2023 06/11/2023 Influenza-like symptoms 06/11/2023 06/11/20 Knee contusion 06/11/2023 06/11/2023 Migraine 06/11/2023 06/11/2023 Neck swelling 06/11/2023 06/11/2023 Pharyngitis 06/11/2023 06/11/2023 Warts of foot 06/11/2023 06/11/2023 Right knee pain 06/11/2023 06/11/2023 Right wrist pain 06/11/2023 06/11/2023 Right wrist sprain 06/11/2023 06/11/2023 Shoulder strain 06/11/2023 06/11/2023 Syncope 06/11/2023 06/11/2023 Vaginal discharge 06/11/2023 06/11/2023 Vitamin D deficiency 06/11/2023 06/11/2023 Wrist contusion 06/11/2023 06/11/2023 Diarrhea 06/11/2023 06/11/2023 Acute UTI (urinary tract infection) 11/14/2021 Generalized abdominal pain 11/14/2021 Kidney stone 11/14/2021 Renal scarring 11/14/2021 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 Myopia of both eyes 10/15/2021 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 Migraine without aura and wi thout status migrainosus, not intractable 05/08/2021 Post concussion syndrome 05/06/2021 Pyelonephritis 01/28/2021 Constipation 01/28/2021 RUQ abdominal pain 01/23/2021 Nausea & vomiting 08/12/2019 Vasovagal near-syncope 10/01/2017 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 Date Type Department Care Team Description 02/13/2025 6:40 AM EDT - 02/13/2025 11:59 PM EDT Hospital Encounter [facility] [address] [place] [address] Chandrakant Mar MD Diarrhea, unspecified type Discharge Disposition: Home or Self Care 02/13/2025 Travel 12/28/2024 10:20 AM EDT Office Visit [facility] [address] [place] [address] Iza Parks MD Diarrhea, unspecified type (Primary Dx) 12/28/2024 Results Follow-Up [facility] [address] [place] [address] Iza Parks MD 12/28/2024 Travel 12/27/2024 Travel 12/02/2024 8:22 AM EDT - 12/02/2024 11:59 PM EDT Hospital Encounter [facility] 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 (Primary Dx); Myopia of both eyes 11/21/2024 Travel from Last 3 Months Immunizations Immunization Administration Dates Next Due DTaP 01/24/2008, 6,2004,05/29,2004 DTaP, Unspecified 01/24/2008, 6,2004,05/29,2004 Hep A, ped/adol, 2 dose 07/17/2020,03/01/2018 Hep B, Adolescent or Pediatric 02/05/2005,2003,2004 HiB, unspecified 02/05/2005, 4,2004,04/03 Hib (PRP-OMP) 02/05/2005, 4,2004,04/03 IPV 01/24/2008, 4,2004,04/03 Influenza, injectable, quadr ivalent, preservative free 05/11/2023 Influenza, seasonal, injecta ble, preservative free 05/10/2024 MMR 02/23/2015,01/24/2008,02/05/2005 Meningococcal A Polysacchari de (Non-us) 02/23/2015 Meningococcal ACWY, unspecified 02/23/2015 Meningococcal MCV4P 07/17/2020,02/23/2015 Meningococcal MPSV4 02/23/2015 Tdap 06/29/2023,02/23/2015 Varicella 07/17/2020,02/23/2015,2004 Family History Medical History Relation Name Comments Ulcerative colitis Cousin Blood clots Father Stroke Maternal Grandmother Hannah kaveh Arthritis Mother [employer] Diabetes Mother [employer] Glaucoma Mother [employer] Hypertension Mother [employer] Kidney Stones Mother [employer] Blood clots Other 1 Clotting disorder Other 2 Diabetes Other 3 Hypertension Other 4 Blood clots Paternal Grandmother Blood clots Sister 1 Clotting disorder Sister 2 Relation Name Status Comments Cousin Father Maternal Grandmother Hannah linn Mother [employer] Other 1 Other 2 Other 3 Other 4 Paternal Grandmother Sister 1 Sister 2 Social History Tobacco Use Types Packs/Day Years [...] Orientation Straight 05/19/2021 1: 20 PM EDT Last Filed Vital Signs Vital Sign Reading [...] Mass Index 25.7 02/13/2025 7:16 AM EDT Plan of Treatment Upcoming Encounters Date Type Department Care Team (Late st Contact Info) Description 05/02/2025 3:40 PM EDT [facility] [address] [place] [address] Sarbjit Coker MD [address] [place], [place] [id number] 11/21/2025 3:15 PM EDT Office Visit [facility] [address] [place] [address] Slim Riley MD [address] [address] Health Maintenance Due Date Last Done Comments [facility]-/Child/Adol SDOH Screenings 2004 XAX-DIHTU-31 Vaccine (#1) 01/21/2009 HPV Vaccines (1 - 3-dose series) 01/21/2019 [facility]-Chlamydia and Gonorrhea Screening 01/06/2022 01/06/2021, 01/06/2021 [facility]- SDOH Screenings 01/21/2022 [facility]-Adult SDOH Screenings 01/21/2022 [facility]-Pap Smear 01/21/2025 [facility]-Influenza Vaccine (#1) 2025 05/10/2024, [facility]-Depression Screening 12/28/2025 025, 12/28/2024, 05/25/2024 [facility]-DTaP,Tdap,and Td Vaccines (8 - Td or Tdap) 06/29/2033 06/29/2023, 02/23/2015, 01/24/2008, Additional history exists [facility]-Zoster Vaccines (1 of 2) 01/21/2054 07/17/2020, 02/23/2015, 2004 [facility]-HIB Vaccines Completed 02/05/2005, , 2004, Additional history exists [facility]-Hepatitis B Vaccines Completed 005, 2004, 2004 [facility]-IPV Vaccines Completed 01/24/2008, , 2004, Additional history exists [facility]-Hepatitis A Vaccines Completed 07/17/2020, 12/2017 [facility]-Varicella Vaccines Completed 0, 02/23/2015, 2004 [facility]-HIV Screening Completed 01/28/2023 [facility]-Hepatitis C Screening Completed 01/28/2023 [facility]-Obesity Intervention Completed 025, 05/25/2024, 12/17/2023, Additional history exists [facility]-Pneumococcal Vaccine: Pediatrics (0 to 5 Years) and At-Risk Patients (6 to 49 Years) Aged Out No longer eligible based on patient's age to complete this topic [facility]-Rotavirus Vaccines Aged Out No lo nger eligible based on patient's age to complete this topic Procedures Procedure Name Priority Date/Time Associated Diagnosis Comments CAPSULE ENDOSCOPY Routine 02/16/2025 1:0 1 PM EDT Diarrhea, unspecified type VITAMIN B12, SERUM Routine 12/28/2024 11 :59 AM EDT Diarrhea, unspecified type VITAMIN D 25 HYDROXY Routine 12/28/2024 11:59 AM EDT Diarrhea, unspecified type FOLATE, SERUM Routine 12/28/2024 11:59 AM EDT Diarrhea, unspecified type CT ENTEROGRAPHY Routine 12/02/2024 9:26 AM EDT Elevated fecal calprotectin Diarrhea, unspecified type HEPATITIS C ANTIBODY - ED W/REFLEX TO HCV QUANT PCR STAT 01/28/2023 6:03 PM EDT HIV 1/2 ANTIBODY/ANTIGEN SCREEN WITH REFLEX TO HIV I/II DIFFERENTIATION STAT 01/28/2023 6:03 PM EDT CHLAMYDIA TRACHOMATIS DNA BY PCR STAT 01/06/2021 6:33 PM EDT from Last 3 Months or Most Recently Relevant to Health Maintenance Results * Capsule Endoscopy (02/16/2025 1:01 PM [...] the images and this is my reading. Result Zohra Mar MD GI PROCEDURE ORDERABLES Final Result * Vitamin D 25 Hydroxy (12/28/2024 11:59 AM EDT) Vitamin D 25 Hydroxy 20.9 20.0 - 80.0 ng/mL 12/28/2024 2:56 PM EDT [facility] Blood Venous blood specimen / Unknown Venipuncture / Unknown 12/28/2024 11:59 AM EDT 12/28/2024 11:59 AM EDT Narrative [facility] - 12/28/2024 2:56 PM EDT Testing performed on [employer], standardized against NIST SRM 2972. When testing [...] to 80 ng/mL Possible toxicity: >100 ng/mL Result Zohra Mar MD LAB BLOOD ORDERABLES Final Res ult [facility] [address] [place] [address] * (ABNORMAL) Folate (12/28/2024 11:59 AM EDT) Folate, Serum 3.3(L) >4.6 ng/mL 12/28/2024 2:13 PM EDT [facility] Blood Venous blood specimen / Unknown Venipuncture / Unknown 12/28/2024 11:59 AM EDT 12/28/2024 11:59 AM EDT Result Zohra Mar MD LAB BLOOD ORDERABLES Final Res ult [facility] [address] [place] [address] * Vitamin B12 (12/28/2024 11:59 AM EDT) Vitamin B12, Serum 295 210 - 1,033 pg/mL 12/28/2024 2:13 PM EDT [facility] Blood Venous blood specimen / Unknown Venipuncture / Unknown 12/28/2024 11:59 AM EDT 12/28/2024 11:59 AM EDT Chandrakant Mar MD LAB BLOOD ORDERABLES Final Res ult Performing Organization Address [facility] Co de Phone Number [facility] [address] [place] [address] * CT Enterography (12/02/2024 9:26 AM EDT) Anatomical Region Laterality Modality Abdomen, Pelvis Computed Tomogra phy Impressions 12/02/2024 10:03 AM EDT 1. No convincing evidence of active inflammatory bowel disease on the current examination. CRITICAL RESULT: No. COMMUNICATION: Per this written report. Drafted by Janey Cameron MD on 12/02/2024 9:56 AM Final report signed by Janey Cameron MD on 12/02/2024 10:03 AM Narrative 12/02/2024 10:03 AM EDT CLINICAL INDICATION: elevated fecal calprotectin, diarrhea, negative [...] biliary obstruction. Normal pancreas, spleen, kidneys and adrenal glands. Lymph Nodes/Vasculature: No lymphadenopathy by CT size criteria. The aortoiliac vasculature is patent and normal in caliber. Free Fluid: No ascites Musculoskeletal and Body Wall: No aggressive or suspicious findings. Lower Chest: No suspicious findings. Procedure Note Janey Cameron MD - 12/02/2024 CLINICAL INDICATION: elevated fecal calprotectin, diarrhea, negative colonoscopy TECHNIQUE: Multiple axial CT images were obtained from lung bases through pubicsymphysis with administration of IV contrast, Omnipaque 300, 100 mL andwith administration of neutral oral contrast. Reconstructed coronal CTimages of the abdomen and pelvis also obtained. Reformatted images in thecoronal and sagittal planes were generated from the axial data set tofacilitate diagnostic accuracy. Total DLP (Dose-Length Product): 524.92 mGy.cm. Please note: The reportedvalue represents the total of one or more individual components during theCT acquisition on this date and at this time, and as such, the same valuemay appear in more than one CT report depending on theinterpreting/reporting physicians. COMPARISON: None. FINDINGS: GI Tract/Mesentery/Peritoneum: The large and small bowel appear normal incaliber. No wall thickening or hyperenhancement. No adjacent inflammatoryedema. No suspicious peritoneal/mesenteric findings. Solid Abdominal Organs and Pelvic Organs: A 10 mm low-density lesion withsuggestion of eccentric focus of internal enhancement possibly representsa hemangioma (series 3 image 102). No other suspicious liver lesions.Normal gallbladder. No biliary obstruction. Normal pancreas, spleen,kidneys and adrenal glands. Lymph Nodes/Vasculature: No lymphadenopathy by CT size criteria. Theaortoiliac vasculature is patent and normal in caliber. Free Fluid: No ascites Musculoskeletal and Body Wall: No aggressive or suspicious findings. Lower Chest: No suspicious findings. IMPRESSION: 1. No convincing evidence of active inflammatory bowel disease on thecurrent examination. CRITICAL RESULT: No. COMMUNICATION: Per this written report. Drafted by Janey Cameron MD on 12/02/2024 9:56 AM Final report signed by Janey Cameron MD on 12/02/2024 10:03 AM Anuj Guy MD IMG CT PROCEDURES Final Result * HIV 1 & 2 Antibody/Antigen Screen (01/28/2023 6:03 PM EDT) [facility] HIV 1 & 2 Antibody/Antigen Screen Non Reactive Non Reactive 01/28/2023 7:03 PM EDT [facility] Comment:Screening for HIV 1 & 2 antibodies, and P24 antigen is NONREACTIVE. No confirmatory testing is required. Blood Venous blood specimen / Unknown Venipuncture / Unknown 01/28/2023 6:03 PM EDT 01/28/2023 6:21 PM EDT Jack Bradford MD LAB BLOOD ORDERABLES Final Res ult Performing Organization Address City/[facility] Co de Phone Number [facility] [address] [place] [address] * Hepatitis C Antibody - ED (01/28/2023 6:03 PM EDT) [facility] Hepatitis C Antibody Negative Negative 01/28/2023 7:05 PM EDT [facility] Blood Venous blood specimen / Unknown Venipuncture / Unknown 01/28/2023 6:03 PM EDT 01/28/2023 6:21 PM EDT Jack Bradford MD LAB BLOOD ORDERABLES Final Res ult [facility] [address] [place] [address] * Chlamydia trachomatis by PCR (01/06/2021 6:33 PM EDT) [facility] Chlamydia trachomatis DNA PCR Result Not Detected Not Detected 01/07/2021 1:25 PM EDT [facility] Urine Urine specimen obtained by clean catch procedure / Unknown Non-blood Collection / Unknown 01/06/2021 6:33 PM EDT 01/06/2021 7:00 PM EDT Narrative [facility] - 01/07/2021 1:25 PM EDT This test is performed by the [employer] m2000 instrument for Real Time PCR C. trachomatis and N. gonorrhea. This test is FDA approved for use with endocervical, vaginal, and urine specimens. This test is used for clinical purposes. It should not be regarded as invesigational or for research. The [facility] Clinical Microbiology Laboratory is certified under the Clinical Laboratory Improvement Amendments of 1988 (CLIA-88) as qualified to perform high complexity clinical laboratory testing. Brittani Fajardo MD LAB MICROBIOLOGY - GENERAL [facility] Final Result [facility] [address] [place] [id number] from Last 3 Months or Most Recently Relevant to Health Maintenance Insurance [facility] MEDICAID Advance Directives * Full Code (Latest Code Status on File) Date Activated Date Inactivated Comments 01/23/2021 2:35 AM 01/28/2021 4:43 PM Question Answer Comments Patient has decision-making capacity? No Healthcare Surrogate: Parent(s) of the patient Care Teams Glass Blowing Instructor Relationship Specialty Start Date End Date Nataly Olvera PA [address] [place] [id number] PCP - General 02/03/23
--- OUTSIDE RECORDS SUMMARY | 2025-02-20 16:48 | XMS_ITS | Encounter Summary ---
Author Organization Healthcare Address [address] [place] [address] Care Team Providers Care Coconut Boiler Name Role Phone WadeNataly ISI Primary Care Provider [phone] Encounter Details Date Type Department Care Team (Latest Contact Info) Description 12/27/2024 Travel Social History Tobacco Use Types Packs/Day Years [...] PM EDT documented as of this encounter Plan of Treatment Upcoming Encounters Date Type Department Care Team (Late st Contact Info) Description 05/02/2025 3:40 PM EDT Office Visit [facility] [address] [place] [address] Sarbjit Coker MD [address] [place], [place] [id number] 11/21/2025 3:15 PM EDT Office Visit [facility] [address] [place] [address] Slim Riley MD 110 [facility] [address] [place] [address] documented as of this encounter Visit Diagnoses Not on filedocumented in this encounter Additional Health Concerns Assessment Noted Time A fall risk assessment has been complete d for the patient 05/25/2024 8:07 AM EDT A Body Mass Index follow-up plan has been documented for the patient 11/21/2024 2:46 PM EDT documented as of this encounter Care Teams Coconut Boiler Relationship Specialty Start Date End Date Nataly Olvera PA [address] [place] [address] PCP - General 02/03/23 documented as of this encounter
--- OUTSIDE RECORDS SUMMARY | 2025-02-20 16:48 | XMS_ITS | Encounter Summary ---
Author Organization Healthcare Address [address] [place] [place] [id number] Care Team Providers Care Risk Management Professional Name Role Phone Nataly Olvera Primary Care Provider [phone] Encounter Details Date Type Department Care Team (Late st Contact Info) Description 12/28/2024 Results Follow-Up [facility] [address] [place] [address] Iza Parks MD [address] [place] [address] Social History Tobacco Use Types Packs/Day Years [...] Questionnaire -2 Score 0 12/28/2024 10:45 AM David Kumar * Question Answer Date of Assessment Author [...] television Not at all 12/28/2024 10:45 AM David Kumar Moving or speaking so slowly that other [...] Description 05/02/2025 3:40 PM EDT Office Visit [facility] [address] [place] [address] Sarbjit Coker MD [address] [place] [address] 11/21/2025 3:15 PM EDT Office Visit [facility] [address] [facility] [place] [address] Slim Riley MD [address] [address] documented as of this encounter Visit [...] documented as of this encounter Care Teams Risk Management Professional Relationship Specialty Start Date End Date Nataly Olvera PA [address] [place] [address] PCP - General 02/03/23 documented as of this encounter
--- OUTSIDE RECORDS SUMMARY | 2025-02-20 16:48 | XMS_ITS | Encounter Summary ---
Author Organization Healthcare Address [address] [place] [id number] Care Team Providers Care Blueprint Assembler Name Role Phone WadeNataly ISI Primary Care Provider [phone] Encounter Details Date Type Department Care Team (Latest Contact Info) Description 02/13/2025 Travel Social History Tobacco Use Types Packs/Day [...] Description 05/02/2025 3:40 PM EDT [facility] [address] [place] [address] Sarbjit Coker MD [address] [place] [address] 11/21/2025 3:15 PM EDT Office Visit [facility]s [address] [place] [address] Slim Riley MD [address] [address] documented as of this encounter [...] documented as of this encounter Care Teams Blueprint Assembler Relationship Specialty Start Date End Date Nataly Olvera PA [address] [place] [address] PCP - General 02/03/23 documented as of this encounter
--- OUTSIDE RECORDS SUMMARY | 2025-02-20 16:48 | XMS_ITS | Clinical Summary ---
Author Organization [facility] Address [address] [place] [address], [address] [place] [address] Care Team Providers Care Branch Office Manager Name Role Phone Unavailable Primary Care Provider Unavailabl e Allergies Active Allergy Reactions Criticality Noted Date Comments Nsaids 04/12/2021 Azithromycin 04/12/2021 Social History Tobacco Use Types Packs/Day Years Used Date Smoking Tobacco: Never Smokeless Tobacco: Never Alcohol Use Standard Drinks/Week Comments Never 0 (1 standard drink = 0.6 oz pur e alcohol) Comments Unknown Sex and Gender Information Value Date Recorded Sex Assigned at Not on file Legal Sex Female 8:03 PM EDT Gender Identity Not on file Sexual Orientation Not on file Last Filed Vital Signs Vital Sign Reading Time Taken Comments Blood Pressure 113/79 04/12/2021 10:53 PM EDT Pulse 75 04/12/2021 10:53 PM EDT Temperature 36.9 C (98.4 F) 04/12/2021 10:53 PM EDT Respiratory Rate 16 04/12/2021 10:53 PM EDT Oxygen Saturation 95% 04/12/2021 10:53 PM EDT Inhaled Oxygen Concentration - - Weight 54.4 kg (120 lb) 04/12/2021 8:18 PM EDT Height - - Body Mass Index - - Plan of Treatment Not on file Insurance
--- OUTSIDE RECORDS SUMMARY | 2025-02-20 16:48 | XMS_ITS | Encounter Summary ---
Author Organization Healthcare Address [address] [place] [address] Care Team Providers Care Juke Box Mechanic Name Role Phone Nataly Olvera ISI Primary Care Provider [phone] Encounter Details Date Type Department Care Team (Late st Contact Info) Description 02/03/2024 Lab Requisition [facility] [address] [place] [address] Anuj Guy MD [address] [facility] [address] [place] [address] Diarrhea, unspecified Social History Tobacco Use Types Packs/Day Years Used Date Smoking Tobacco: Never Smokeless Tobacco: Never Alcohol Use Standard Drinks/Week Comments Never 0 (1 standard drink = 0.6 oz pur e alcohol) PHQ-2 Answer Date Recorded Patient Health Questionnaire-2 Score 0 12/17/2023 PHQ-2A Answer Date Recorded Patient Health Questionnaire-2 Score 0 06/11/2023 Comments Unknown Sex and Gender Information Value [...] Description 05/02/2025 3:40 PM EDT Office Visit [facility] [address], 2nd [place] [address] Sarbjit Coker MD [address] [place] [address] 11/21/2025 3:15 PM EDT Office Visit [facility] Eye Care - Pediatrics [address] [place] [address] Slim Riley MD [address] [place] [address] documented as of this encounter Procedures Procedure Name Priority Date/Time Associated Diagnosis Comments SURGICAL PATHOLOGY EXAM Routine 02/03/2024 Diarrhea, unspecified documented in this encounter Results * Surgical Pathology Exam (02/03/2024) Case Report Surgical Pathology Case: [id number] Authorizing Provider: Anuj Guy MD Collected: 02/03/2024 Ordering Location: [facility] Lab Received: 02/03/2024 1035 Pathologist: Emmanuel Thomas MD Specimens: A) - Duodenum, duodenal biopsy B) - Gastric, gastric biopsy C) - Colon, random colon biopsy D) - Sigmoid Colon, sigmoid polyp 02/05/2024 8:25 AM EDT [facility] Final Diagnosis A. DUODENUM, BIOPSY: - NO PATHOLOGIC ABNORMALITY - NO EVIDENCE OF VILLOUS ABNORMALITY OR INTRAEPITHELIAL LYMPHOCYTOSIS B. STOMACH, BIOPSY: - H. PYLORI GASTRITIS - NEGATIVE FOR INTESTINAL METAPLASIA OR DYSPLASIA C. COLON, RANDOM, BIOPSY: - NO PATHOLOGIC ABNORMALITY; NO EVIDENCE OF MICROSCOPIC COLITIS D. SIGMOID COLON, POLYP, BIOPSY: - HYPERPLASTIC POLYP 02/05/2024 8:25 AM EDT [facility] at 0825 EDT Clinical Information Diarrhea, unspecified Nausea Abdominal pain History of ulcers Dyspepsia 02/05/2024 8:25 AM EDT [facility] Gross Description A. DUODENAL BIOPSY Received in formalin labeled d uodenal biopsy , are 5 singh-red soft tissue fragments measuring 0.2-0.5 cm in greatest dimension. Specimen submitted entirely in cassette A1. Cold Time: 0 Chyann R Quincy B. GASTRIC BIOPSY Received in formalin labeled g astric biopsy , are 4 singh-red soft tissue fragments measuring 0.2-0.3 cm in greatest dimension. Specimen submitted entirely in cassette B1. Cold Time: 0 Chyann R Quincy C. RANDOM COLON BIOPSY Received in formalin labeled r andom colon biopsy , are multiple singh-red soft tissue fragments measuring 0.2-0.3 cm in greatest dimension. Specimen submitted entirely in cassette C1 and C2. Cold Time: 0 Chyann R Quincy D. SIGMOID POLYP Received in formalin labeled s igmoid colon polyp , are 2 singh-red soft tissue fragments measuring 0.2 cm in greatest dimension each. Specimen submitted entirely in cassette D1. Cold Time: 0 Chyann R Kami 02/05/2024 8:25 AM EDT [facility] Tissue Sigmoid colon structure / Unknown 02/03/2024 02/03/2024 10:35 AM EDT Tissue specimen (specimen) Stomach structure / Unknown 02/03/2024 02/03/2024 10:35 AM EDT Tissue specimen (specimen) Colon structure / Unknown 02/03/2024 02/03/2024 10:35 AM EDT Tissue specimen (specimen) Sigmoid colon structure / Unknown 02/03/2024 02/03/2024 10:35 AM EDT Anuj Guy MD LAB PATHOLOGY ORDERABLES Final Result [facility] [address] [place] [address] documented in this encounter Visit Diagnoses Diagnosis Diarrhea, unspecified documented in this encounter Additional Health Concerns Assessment Noted Time A fall risk assessment has been complete d for the patient 12/17/2023 10:32 AM EDT A Body Mass Index follow-up plan has been documented for the patient 12/24/2023 12:11 PM EDT documented as of this encounter Care Teams Juke Box Mechanic Relationship Specialty Start Date End Date Nataly Olvera PA [address] [place] [address] PCP - General 02/03/23 documented as of this encounter
--- OUTSIDE RECORDS SUMMARY | 2025-02-20 16:48 | XMS_ITS | Encounter Summary ---
Author Organization Healthcare Address [address] [place] [address] Care Team Providers Care Well Reactivator Operator Name Role Phone WadeNataly Venkat SNOWEDN Primary Care Provider [phone] Encounter Details Date Type Department Care Team (Latest Contact Info) Description 12/28/2024 Travel Social History Tobacco Use Types Packs/Day [...] energy Not at all 12/28/2024 10:45 AM CATRACHITAT David Alexandra Poor appetite or overeating Not [...] usual. Not at all 12/28/2024 10:45 AM CATRACHITAT David Alexandra Thoughts that you would be b jason off or hurting yourself in some way Not at all 12/28/2024 10:45 AM David Kumar Patient Health Questionnaire -9 Score 0 12/28/2024 10:45 AM CATRACHITAT David Alexandra * If you checked off [...] Description 05/02/2025 3:40 PM EDT Office Visit [facility] Medicine Specialties [address], [address] [place] [address] Sarbjit Coker MD [address] [place] [address] 11/21/2025 3:15 PM EDT Office Visit [facility] Advanced Eye Care - Pediatrics [address] [place] [address] Slim Riley MD [address] [place] [address] documented as of this encounter [...] documented as of this encounter Care Teams Well Reactivator Operator Relationship Specialty Start Date End Date Nataly Olvera PA [address] [place] [address] PCP - General 02/03/23 documented as of this encounter
--- OUTSIDE RECORDS SUMMARY | 2025-02-20 16:48 | XMS_ITS | Encounter Summary ---
Author Organization Healthcare Address [address] [id number] Care Team Providers Care Audit Control Clerk Name Role Phone Nataly Olvera Primary Care Provider [phone] Encounter Details Date Type Department Care Team (Late st Contact Info) Description 11/14/2024 Results Follow-Up [facility] Medicine Specialties [address], [address] [place] [address] Iza Parks MD [address] [place] [address] Social History Tobacco Use Types Packs/Day Years [...] Not at all 12/28/2024 10:45 AM EDT Davdi Alexandra Feeling down, depressed, or hopeless Not [...] 05/02/2025 3:40 PM EDT Office Visit [facility] Medicine Specialties [address], [address] [place] [address] Sarbjit Coker MD [address] [place] [address] 11/21/2025 3:15 PM EDT Office Visit [facility] Care - Pediatrics [address] [facility] [place] [address] Slim Riley MD [address] [facility] [address] [place] [address] documented as of this encounter Visit Diagnoses Not on filedocumented in this encounter Additional Health Concerns Assessment Noted Time A fall risk assessment has been complete d for the patient 05/25/2024 8:07 AM EDT A Body Mass Index follow-up plan has been documented for the patient 05/31/2024 11:14 AM EST documented as of this encounter Care Teams Audit Control Clerk Relationship Specialty Start Date End Date Nataly Olvera PA [address] [place] [address] PCP - General 02/03/23 documented as of this encounter
[2025-02-22 08:16] LABS: Calprotectin, Fecal 5 ug/g (0-120)
== END 2025-02-20 23:59 | disposition home or self-care (01) ==
LOC: LAB 16:47
PROVIDERS: PCP Physician Assistant; Visit Provider Internal Medicine
DX: R19.7 Diarrhea, unspecified (principal)
CPT/HCPCS: 83993

== ENCOUNTER 2025-02-22 16:44 | Outpatient (CLI) | payer OTHER, SELFPAY ==
--- OUTSIDE RECORDS SUMMARY | 2024-12-28 10:20 | XMS_ITS | Encounter Summary ---
Author Organization [facility] Address [address] [place] [address] Care Team Providers Care Human Factors Advisor Lead Name Role Phone Nataly Olvera ISI Primary Care Provider [phone] Reason for Referral * Consultation (Routine) - Authorized Specialty Diagnoses / Procedures Referred By Candy jain Referred To Contact Diagnoses Diarrhea, unspecified type Chandrakant Mar MD [address] [address] Phone: tel: fax: Referral ID Status Reason Start Date Expiration Date V isits Requested Visits Authorized [id number] Authorized 12/28/2024 06/29/2026 1 1 * Imaging (Routine) - Closed Specialty Diagnoses / Procedures Referred By Candy jain Referred To Contact Gastroenterology Diagnoses Diarrhea, unspecified type Procedures Capsule Endoscopy Chandrakant Mar MD [address] [address] Phone: tel: fax: Referral ID Status Reason Start Date Expiration Date V isits Requested Visits Authorized [id number] Closed Specialty Services Required 12/28/2024 06/29/2026 1 1 Reason for Visit * Reason Comments Helicobacter positive gastritis Encounter Details Date Type Department Care Team (Late st Contact Info) Description 12/28/2024 10:20 AM EDT Office Visit [facility] Medicine Specialties [address] [place] [address] Iza Parks MD [address] [place] [address] Diarrhea, unspecified type (Primary Dx) [...] calprotectin and fax the calprotectin order to [facility] * Progress Notes - Iza Parks MD [...] COMMUNICATION: Per this written report. Drafted by Jaeny Cameron MD on 12/02/2024 9:56 AM Final [...] Laterality Date ADENOIDECTOMY APPENDECTOMY N/A Appendectomy from [place] BARTHOLIN GLAND CYST EXCISION 08/2024 EYE SURGERY INCISION AND DRAINAGE, ABCESS 05/2024 STRABISMUS SURGERY Bilateral 06/2022 TONSILECTOMY, ADENOIDECTOMY, BILATERAL MYRINGOTOMY AND TUBES N/A Tonsillectomy With Adenoidectomy from [place] TONSILLECTOMY [3] Family History Problem Relation Name [...] on 12/28/2024), Disp: 9 tablet, Rfl: 0 brebpgko-cerqipkkr-gpdvvzncpnzybfbpcc (Polydex) 3.5-80369-1.1 ointment ophthalmic ointment, Apply small amount to [...] Description 05/02/2025 3:40 PM EDT Office Visit [facility] Medicine Specialties [address] [place] [address] Sarbjit Coker MD [address] [place] [address] 11/21/2025 3:15 PM EDT Office Visit [facility] - Pediatrics [address] [place] [address] Slim Riley MD 110 [facility] [address] [place] [phone] Scheduled Orders Name Type Priority Associated Diagnoses [...] 3.3(L) >4.6 ng/mL 12/28/2024 2:13 PM EDT [facility] Blood Venous blood specimen / Unknown Venipuncture / Unknown 12/28/2024 11:59 AM EDT 12/28/2024 11:59 AM EDT us Chandrakant Mar MD LAB BLOOD ORDERABLES Final Res ult Performing Organization Address [facility]/ZIP Co de Phone Number [facility] [address] [place] [address] * Vitamin D 25 Hydroxy (12/28/2024 11:59 AM EDT) Vitamin D 25 Hydroxy 20.9 20.0 - 80.0 ng/mL 12/28/2024 2:56 PM EDT [facility] Blood Venous blood specimen / Unknown Venipuncture / Unknown 12/28/2024 11:59 AM EDT 12/28/2024 11:59 AM EDT Narrative [facility] - 12/28/2024 2:56 PM EDT Testing performed on [employer], standardized against NIST SRM 2972. When testing [...] ORDERABLES Final Res ult Performing Organization Address [facility] Co de Phone Number [facility] [address] [place] [phone] * Vitamin B12 (12/28/2024 11:59 AM EDT) Vitamin B12, Serum 295 210 - 1,033 pg/mL 12/28/2024 2:13 PM EDT [facility] Blood Venous blood specimen / Unknown Venipuncture / Unknown 12/28/2024 11:59 AM EDT 12/28/2024 11:59 AM EDT Chandrakant Mar MD LAB BLOOD ORDERABLES Final Res ult Performing Organization Address [facility] Co de Phone Number [facility] [address] [place] [address] documented in this encounter Visit Diagnoses Diagnosis [...] documented as of this encounter Care Teams Human Factors Advisor Lead Relationship Specialty Start Date End Date Nataly Olvera PA [address] [place] [address] PCP - General 02/03/23 documented as of this encounter
--- OUTSIDE RECORDS SUMMARY | 2025-02-13 06:40 | XMS_ITS | Encounter Summary ---
Author Organization [facility] Address [address] [place] [address] Care Team Providers Care Carding Utility Tender Name Role Phone Nataly Olvera ISI Primary Care Provider [phone] Reason for Referral * Imaging (Routine) - Closed Specialty Diagnoses / Procedures Referred By Candy jain Referred To Contact Gastroenterology Diagnoses Diarrhea, unspecified type Procedures Capsule Endoscopy Chandrakant Mar MD [address] [address] Phone: tel: fax: Referral ID Status Reason Start Date Expiration Date V isits Requested Visits Authorized [id number] Closed Specialty Services Required 12/28/2024 06/29/2026 1 1 Reason for Visit * Imaging (Routine) - Closed Specialty Diagnoses / Procedures Referred By Candy jain Referred To Contact Gastroenterology Diagnoses Diarrhea, unspecified type Procedures Capsule Endoscopy Chandrakant Mar MD [address] [address] Phone: tel: fax: Referral ID Status Reason Start Date Expiration Date V isits Requested Visits Authorized [id number] Closed Specialty Services Required 12/28/2024 06/29/2026 1 1 Encounter Details Date Type Department Care Team (Latest Contact Info) Description 02/13/2025 6:40 AM EDT - 02/13/2025 11:59 PM EDT Hospital Encounter [facility] S Endoscopy [address] [place] [address] Chandrakant Mar MD [address] [place] [id number] Diarrhea, unspecified type Discharge Disposition: Home or Self Care Social History Tobacco Use Types Packs/Day Years Used Date Smoking Tobacco: Never Passive Smoke Exposure: Past Smokeless Tobacco: Never Alcohol Use Standard Drinks/Week Comments Never 0 [...] Sign Reading Time Taken Comments Blood Pressure 117/78 02/13/2025 7:16 AM EDT Pulse 74 02/13/2025 7:16 AM EDT Temperature 36.8 C (98.3 F) 02/13/2025 7:16 AM EDT Respiratory Rate 16 02/13/2025 7:16 AM EDT Oxygen Saturation 100% 02/13/2025 7:16 AM EDT Inhaled Oxygen Concentration - - Weight 65.8 kg (145 lb 1 oz) 02/13/2025 7:16 AM EDT Height 160 cm (5' 3 ) 02/13/2025 7:16 AM EDT Body Mass Index 25.7 02/13/2025 7:16 AM EDT documented in this encounter Medications at Time of Discharge amitriptyline (Elavil) 10 MG tablet Take 1 tablet by mouth nightly. 30 tablet 6 12/28/2024 busPIRone (Buspar) 5 MG tablet 04/21/2023 cyanocobalamin (Vitamin B-12) 1000 MCG/ML injection 11/04/2022 Drospirenone (Slynd) 4 MG tablet Take by mouth. Fremanezumab-vfrm (Ajovy) 225 MG/1.5ML solution auto-injector Inject 1 pen. under the skin every 30 (thirty) days. 1.5 mL 5 06/11/2023 levoFLOXacin (Levaquin) 500 MG tablet 02/02/2023 modafinil (Provigil) 200 MG tablet 05/18/2023 neomycin-polymyxi n-dexamethamethas one (Polydex) 3.5-69711-9.1 ointment ophthalmic ointment Apply small amount to operative eye(s) 2 times per day for 1 week. 3.5 g 1 07/11/2022 norethindrone (Micronor) 0.35 MG tablet 08/12/2021 oseltamivir (Tamiflu) 75 MG capsule 10/24/2021 oxyCODONE-acetami nophen (Percocet) 5-325 MG tablet 07/11/2022 propranolol LA (Inderal LA) 120 MG 24 hr capsule 05/11/2023 QuickVue At-Home Covid-19 Test kit 03/14/2022 Rimegepant Sulfate 75 MG tablet dispersibleIndica tions:Migraine without aura and without status migrainosus, not intractable Take 75 mg by mouth if needed (for acute headache, not more than 1 tablet for 24 hours). 15 tablet 1 03/14/2022 Ubrelvy 100 MG tablet Please take 1 tab at onset of headache and may repeat in 2 hours once for up to 10 times/month 10 each 3 06/11/2023 Xifaxan 550 MG tablet Take 1 tablet (550 mg) by mouth 3 (three) times a day. 10/05/2023 documented as of this encounter Miscellaneous Notes * Rosangela Vaz - Margie Ordoñez RN - 02/13/2025 7:22 AM EDT Images from the original note were not included. [id number] Capsule Endoscopy Capsule endoscopy is a test done to take pictures of the digestive tract. It uses a capsule with a tiny camera in it. The capsule is swallowed like a pill. As it moves through the digestive tract, the camera sends pictures to a recorder worn outside the body. After a few days, the capsule passes out of the body through the rectum during a bowel movement. Capsule endoscopy is most often done to check for problems in the small bowel (intestine) that are hard to see with a standard endoscopy or colonoscopy. These problems include bleeding and tumors. The test can also help diagnose Crohn?s disease. This is a condition that causes inflammation, sores, and narrowing of the bowel. It can also look for problems caused by celiac disease. The capsule is a tiny camera that takes pictures as it moves through the digestive tract. Before the test Tell your health care provider about any medicines you're taking. You may need to stop taking some or all of them before the test. This includes: ? Prescription medicines. ? Tmeb-tra-ulxcqxm medicines, including aspirin or ibuprofen. ? Illegal drugs. ? Herbs, vitamins, and other supplements. You should also: ? Tell your provider about any current health conditions and prior surgeries that could prevent thecapsule from moving freely through your digestive tract. ? Switch to a clear liquid diet 16 hours before the test. ? Stop eating 12 hours before the test. ? Do a bowel cleansing or use a laxative to clear your bowels, if told to do so by your provider. ? Follow any other instructions from your provider. During the test Depending on your condition, your provider may have you get an imaging test before the capsule endoscopy. Or they may have you swallow a test capsule, which dissolves after a few hours. These steps can help decide if you're at high risk of not passing the capsule. The capsule endoscopy will be done in a provider?s office or hospital. During the test: ? You?ll be asked to raise your shirt. ? You'll most likely have small, sticky, round patches placed on the skin over your belly (abdomen). The patches have antennas that are attached to short wires (leads). The wires are then plugged into a data recorder. ? The recorder will be attached to a belt worn around your waist. The recorder will be checked to make sure it's working. ? You?ll be given the capsule to swallow. The capsule will start sending pictures to the recorder. It will keep sending pictures as it moves through your stomach and small bowel. In rare cases, the capsule may be placed directly in your small bowel, instead of swallowing it. Inthis case, the provider will insert a thin, flexible tube (endoscope) through your mouth and down into the digestive tract. Your provider will tell you more about this, if needed. After the test After you swallow the capsule, you should be able to go home. You can drink clear liquids after 2 hours. You can eat food or take medicine after 4 hours. Be sure to follow any other instructions fromyour provider. For instance, you may need to avoid some physical activities that could affect your test results. You should also: ? Take steps to prevent complications. For instance, don't have an MRI scan or go near an MRI device until the capsule has passed out of your body. ? Watch for the capsule to pass out of your body during a bowel movement. It can be flushed down the toilet with your stool. However, you may not see the capsule in the toilet. If the capsule doesn'tpass within 3 days, let your provider know right away. Occasionally, the capsule may not pass, and you may need to have it removed. Your provider will tell you more about this, if needed. ? Go back to your health care provider?s office or the hospital to have the patches and recorder taken off, as instructed by your provider. Once your provider reviews the pictures, they'll go over the results with you. This is often done within a few days. If the pictures are blurry or unclear, the test may need to be done again. Risks of the test There is a chance the capsule won't pass out of your body on its own. This is rare. When this happens, the capsule is most likely stuck in a narrow spot within your bowels (bowel obstruction). Tell your health care provider right away if you have: ? Unusual bloating. ? Abdominal pain. ? Nausea or vomiting. An X-ray can help see if the capsule is still in your body. If it is, you'll need surgery or endoscopy to remove the capsule. Last Reviewed Date: 2024 00:00:00 ?? [id number] [employer]. All rights reserved. This information is not intended as a substitute for professional medical care. Always follow your healthcare professional's instructions. * H&P - Jim Hill MD - 02/13/2025 7:00 AM EDT Gastroenterology, Hepatology and Nutrition Pre-Endoscopy History & Physical Patient: Karol Lockhart Date of : 2005 Attending: No att. providers found Date of Visit: February 13, 2025 Chief Complaint/Reason for Visit: Pill endoscopy SUBJECTIVE: History of Present Illness: A 20 y.o. female with chronic abdominal pain, lower right before BM, and resolved after BM, and some upper abdominal pain. Reports alternating loose and formed stool in one day. No GI bleed. She is here today for Capsule Endoscopy. She has a past medical history of Anxiety, Brain concussion, Fractures, Headache, Migraine, Nystagmus, Peptic ulceration, Refractive error, and Urinary tract infection. Ms. Karol Lockhart is NPO. Her last solid food was last night. She reports no previous adverse reactions with anesthesia or sedation. No NSAIDs Anticoagulation and antiplatelet medications: none Last dose: not applicable She has never been diagnosed with a bleeding or clotting disorder. She denies previous surgery on her esophagus, stomach, small bowel or colon other than appendectomy. She denies dysphagia. ROS: Negative except as per HPI Allergies[1] Current Outpatient Medications Medication Instructions amitriptyline (ELAVIL) 10 mg, Oral, Nightly busPIRone (Buspar) 5 MG tablet No dose, route, or frequency recorded. cyanocobalamin (Vitamin B-12) 1000 MCG/ML injection No dose, route, or frequency recorded. Drospirenone (Slynd) 4 MG tablet Take by mouth. Fremanezumab-vfrm (Ajovy) 225 MG/1.5ML solution auto-injector 1 pen., Subcutaneous, Every 30 days levoFLOXacin (Levaquin) 500 MG tablet No dose, route, or frequency recorded. methocarbamol (ROBAXIN) 750 mg, Oral, 3 times daily PRN, For severe symptoms, you may take 2 tablets (1500 mg) by mouth 3 times daily. modafinil (Provigil) 200 MG tablet No dose, route, or frequency recorded. cocbgdyt-uaqjmgmuv-gbqpszhuhkdwzrgoka (Polydex) 3.5-34304-4.1 ointment ophthalmic ointment Apply small amount to operative eye(s) 2 times per day for 1 week. norethindrone (Micronor) 0.35 MG tablet No dose, route, or frequency recorded. oseltamivir (Tamiflu) 75 MG capsule No dose, route, or frequency recorded. oxyCODONE-acetaminophen (Percocet) 5-325 MG tablet No dose, route, or frequency recorded. propranolol LA (Inderal LA) 120 MG 24 hr capsule No dose, route, or frequency recorded. QuickVue At-Home Covid-19 Test kit No dose, route, or frequency recorded. Rimegepant Sulfate (NURTEC) 75 mg, Oral, As needed Ubrelvy 100 MG tablet Please take 1 tab at onset of headache and may repeat in 2 hours once for up to 10 times/month Xifaxan 550 mg, 3 times daily Past Medical History[2] Surgical History[3] Confirms no abdominal surgery other than appendectomy Family History[4] Social History[5] OBJECTIVE: 03/03/2023 1:18 PM 06/11/2023 2:25 PM 09/08/2023 2:16 PM 12/17/2023 10:30 AM 05/25/2024 8:03 AM 12/28/2024 10:35 AM 02/13/2025 7:16 AM Vitals Systolic 113 111 112 106 98 99 117 Diastolic 71 77 68 72 63 78 78 Heart Rate 79 67 87 66 80 76 74 Temp 36.4 C 36.8 C 36.8 C 36.8 C Resp 16 Height (cm) 160 cm 160 cm 160 cm 160 cm 160 cm 160 cm 160 cm Weight (kg) 61.4 kg 61.3 kg 58.4 kg 57.2 kg 62.6 kg 64.7 kg 65.8 kg BMI 23.98 kg/m2 23.94 kg/m2 22.81 kg/m2 22.34 kg/m2 24.45 kg/m2 25.27 kg/m2 25.7 kg/m2 BSA (m2) 1.65 m2 1.65 m2 1.61 m2 1.59 m2 1.67 m2 1.7 m2 1.71 m2 Visit Report Report Report Report Physical Exam: General Appearance: Patient in no distress. Alert, awake and oriented x 3 Eyes: Anicteric, EOMI Neck: Neck supple Lungs: Lungs clear to auscultation, no wheezing, rales, rhonchi Heart: Regular rate and rhythm Abdomen: Abdomen soft, non-tender. Bowel sounds normal. No rebound or guarding. Laboratory/Imaging/Pathology: Labs show: Fecal calprotectin 400 Other work up: EGD and colonoscopy with H.pylori gastritis, normal duodenal biopsy. s/p Pylera and omeprazole for 2 weeks in 01/2024 Negative colonic random bx 01/2024 CT enterography: normal HIDA scan : normal ASSESSMENT & PLAN: Ms. Karol Lockhart is a 20 y.o. female here today for Capsule Endoscopy. She has a past medical history of Anxiety, Brain concussion, Fractures, Headache, Migraine, Nystagmus, Peptic ulceration, Refractive error, and Urinary tract infection. Chronic abdominal pain and diarrhea alternating with normal bowel movement Elevated fecal calprotectin Most likely IBS. Elevated calprotectin is non specific with negative findings so far. Plan - will plan for capsule endoscopy to rule out small bowel pathology - start Elavil 10mg nightly PLAN: - Continue NPO and then follow pill cam protocol - Obtain consent - Proceed with plans for Capsule Endoscopy - The risks, benefits, potential complications, limitations and alternatives to the procedure were discussed, including but not limited to retention, pain, bloating, bleeding, infection, perforation,clinical deterioration, aspiration, cardiopulmonary and cerebrovascular events, need for emergency surgery and even . The informed consent was signed by myself and the patient. Jim Hill MD [1] Allergies Allergen Reactions Sucralfate Hives and Swelling Facial swelling, hives Azithromycin Other - please document in the comment field and Rash rash Ibuprofen Unknown - Patient states they do not know rxn details Nsaids Other - please document in the comment field [2] Past Medical History: Diagnosis Date Anxiety Brain concussion Fractures Wrist Headache Migraine Nystagmus Peptic ulceration Refractive error Urinary tract infection [3] Past Surgical History: Procedure Laterality Date ADENOIDECTOMY APPENDECTOMY N/A Appendectomy from [employer] BARTHOLIN GLAND CYST EXCISION 08/2024 EYE SURGERY INCISION AND DRAINAGE, ABCESS 05/2024 STRABISMUS SURGERY Bilateral 06/2022 TONSILECTOMY, ADENOIDECTOMY, BILATERAL MYRINGOTOMY AND TUBES N/A Tonsillectomy With Adenoidectomy from [employer] TONSILLECTOMY [4] Family History Problem Relation Name Age of Onset Diabetes Mother Asia lockhart Hypertension Mother [place] lockhart Kidney Stones Mother [place] lockhart Glaucoma Mother [place] lockhart Arthritis Mother [place] lockhart Blood clots Father Blood clots Sister Clotting disorder Sister Blood clots Paternal Grandmother Ulcerative colitis Cousin Blood clots Other Clotting disorder Other Diabetes Other Hypertension Other Stroke Maternal Grandmother Hannah linn [5] Social History Socioeconomic History Marital status: Single Tobacco Use Smoking status: Never Passive exposure: Past Smokeless tobacco: Never Vaping Use Vaping status: Never Used Substance and Sexual Activity Alcohol use: Never Drug use: Never Sexual activity: Yes Partners: Male Comment: The pill Social History Narrative Lives with parents Activities: Cheerleading Activities: Gymnastics History of recent travel Travel history No recent foreign travel Cosigned by Chandrakant Mar MD at 02/14/2025 8:31 AM EDT Associated attestation - Chandrakant Mar MD - 02/14/2025 8:31 AM EDT I saw and evaluated the patient with the resident/fellow. I discussed the case with the resident/fellow and agree with the findings and plan as documented. documented in this encounter Plan of Treatment Upcoming Encounters Date Type Department Care Team (Late st Contact Info) Description 05/02/2025 3:40 PM EDT Office Visit [facility] Medicine Specialties [address] [place] [address] Sarbjit Coker MD [address] [place] [address] 11/21/2025 3:15 PM EDT Office Visit [facility]s [address] [place] [address] Slim Riley MD [address] [address] documented as of this encounter Procedures Procedure Name Priority Date/Time Associated Diagnosis Comments CAPSULE ENDOSCOPY Routine 02/16/2025 1:0 1 PM EDT Diarrhea, unspecified type documented in this encounter Results * Capsule Endoscopy (02/16/2025 [...] the images and this is my reading. us Chandrakant Mar MD GI PROCEDURE ORDERABLES Final Result documented in this encounter Visit Diagnoses Diagnosis Diarrhea, unspecified type documented in this encounter Additional Health Concerns Assessment Noted Time PHQ-9 Depression Total Score: 0 12/29/19 25 10:45 AM EDT A fall risk assessment has been complete d for the patient 12/28/2024 10:47 AM EDT A Body Mass Index follow-up plan has been documented for the patient 11/21/2024 2:46 PM EDT documented as of this encounter Care Teams Carding Utility Tender Relationship Specialty Start Date End Date Nataly Olvera PA [address] [place] [address] PCP - General 02/03/23 documented as of this encounter
--- OUTSIDE RECORDS SUMMARY | 2025-02-22 16:46 | XMS_ITS | Encounter Summary ---
Author Organization Healthcare Address [address] [place] [address] Care Team Providers Care Tip Cementer Name Role Phone WadeNataly ISI Primary Care Provider [phone] Encounter Details Date Type Department Care Team [...] Visit [place] [facility] [address], [address] [place] [address] Sarbjit Coker MD [address] [place] [address] 11/21/2025 3:15 PM EDT Office Visit [facility] Advanced Eye Care - Pediatrics [address] [place] [address] Slim Riley MD [address] [facility] [address] [place] [address] documented as of this encounter Visit Diagnoses Not on filedocumented in this encounter Additional Health Concerns Assessment Noted Time A fall risk assessment has been complete d for the patient 05/25/2024 8:07 AM EDT A Body Mass Index follow-up plan has been documented for the patient 11/21/2024 2:46 PM EDT documented as of this encounter Care Teams Tip Cementer Relationship Specialty Start Date End Date Nataly Olvera PA [address] [place] [address] PCP - General 02/03/23 documented as of this encounter
--- OUTSIDE RECORDS SUMMARY | 2025-02-22 16:46 | XMS_ITS | Encounter Summary ---
Author Organization Healthcare Address [address] [id number] Care Team Providers Care Beef Breaker Name Role Phone Nataly Olvera Primary Care Provider [phone] Encounter Details Date Type Department Care Team (Late st Contact Info) Description 11/14/2024 Results Follow-Up [facility] Medicine Specialties [address], [address] [place] [address] Iza Parks MD [address] [place] [address] Social History Tobacco Use Types Packs/Day Years [...] Description 05/02/2025 3:40 PM EDT Office Visit [facility] Medicine Specialties [address], [address] [place] [address] Sarbjit Coker MD [address] [place] [address] 11/21/2025 3:15 PM EDT Office Visit [facility] Eye Care - Pediatrics [address] [facility] [place] [address] Slmi Riley MD [address] [facility] [address] [place] [address] documented as of this encounter Visit Diagnoses Not on filedocumented in this encounter Additional Health Concerns Assessment Noted Time A fall risk assessment has been complete d for the patient 05/25/2024 8:07 AM EDT A Body Mass Index follow-up plan has been documented for the patient 05/31/2024 11:14 AM EST documented as of this encounter Care Teams Beef Breaker Relationship Specialty Start Date End Date Nataly Olvera PA [address] [place] [address] PCP - General 02/03/23 documented as of this encounter
--- OUTSIDE RECORDS SUMMARY | 2025-02-22 16:46 | XMS_ITS | Encounter Summary ---
Author Organization Healthcare Address [address] [place] [address] Care Team Providers Care Planning Aide Name Role Phone WadeNataly Venkat SNOWDEN Primary Care Provider [phone] Encounter Details Date Type Department Care Team [...] Description 05/02/2025 3:40 PM EDT Office Visit [facility] Medicine Specialties [address], [address] [place] [address] Sarbjit Coker MD [address] [place] [address] 11/21/2025 3:15 PM EDT Office Visit [facility] Advanced Eye Care - Pediatrics [address] [place] [address] Slim Riley MD [address] [place] [address] documented as of this encounter [...] documented as of this encounter Care Teams Planning Aide Relationship Specialty Start Date End Date Nataly Olvera PA [address] [place] [address] PCP - General 02/03/23 documented as of this encounter
--- OUTSIDE RECORDS SUMMARY | 2025-02-22 16:46 | XMS_ITS | Clinical Summary ---
Author Organization [facility] Address [address] [place] [address], [address] [place] [address] Care Team Providers Care Citizenship Teacher Name Role Phone Unavailable Primary Care Provider [...] Plan of Treatment [place] [id number]
--- OUTSIDE RECORDS SUMMARY | 2025-02-22 16:46 | XMS_ITS | Clinical Summary ---
Author Organization [facility] Address [address] [place] [address] Care Team Providers Care Outside Machinist Apprentice Name Role Phone WadeNataly ISI Primary Care Provider [phone] Allergies Active Allergy Reactions Criticality Noted Date [...] taking.Reported on 12/28/2024 neomycin-polym yxin-dexametha methasone (Polydex) 3.5-77674-9.1 ointment ophthalmic ointment Apply small amount to operative eye(s) 2 times per day for 1 week. 3.5 g 1 07/11/20 22 Active Additional Information Patient not taking.Reported on 12/28/2024 [employer] At-Home Covid-19 Test kit 03/14/20 Active norethindrone (Micronor) 0.35 MG tablet 08/12/19 22 Active oseltamivir (Tamiflu) 75 MG capsule 03/31/20 [...] Hospital Encounter [facility] [address] [place] [address] Chandrakant Mar MD Diarrhea, unspecified type Discharge Disposition: Home or Self Care 02/13/2025 Travel 12/28/2024 10:20 AM EDT [facility] [address], [address] [place] [address] Iza Parks MD Diarrhea, unspecified type (Primary Dx) 12/28/2024 Results [facility] [address], [address] [place] [address] Iza Parks MD 12/28/2024 Travel 12/27/2024 Travel 12/02/2024 8:22 AM EDT - 12/02/2024 11:59 PM EDT Hospital Encounter [facility] [address] [place] [address] Elevated fecal calprotectin; Diarrhea, unspecified type Discharge Disposition: Home or Self Care 12/02/2024 Travel 11/27/2024 Travel from Last 3 Months Immunizations Immunization [...] Blood clots Father Stroke Maternal Grandmother Hannah linn Arthritis Mother Asia lockhart Diabetes Mother Asia lockhart Glaucoma Mother Asia lockhart Hypertension Mother Asia lockhart Kidney Stones Mother Asia lockhart Blood clots Other 1 Clotting disorder Other 2 Diabetes Other 3 Hypertension Other 4 Blood clots Paternal Grandmother Blood clots Sister 1 Clotting disorder Sister 2 Relation Name Status Comments Cousin Father Maternal Grandmother Hannah linn Mother Asia lockhart Other 1 Other 2 Other 3 Other [...] [facility] Medicine Specialties [address], [address] [place] [address] Sarbjit Coker MD [address] [place] [address] 11/21/2025 3:15 PM EDT Office Visit [facility] - Pediatrics [address] [place] [address] Slim Riley MD [address] [address] Health Maintenance Due Date Last Done Comments [facility]-Infant/Child/Adol SDOH Screenings 2004 [id number] Vaccine (#1) 01/21/2009 HPV Vaccines (1 - [...] Vaccines Completed 07/17/2020, 12/2017 [facility]-Varicella Vaccines Completed , 02/23/2015, 2004 [facility]-HIV Screening Completed 01/28/2023 [facility]-Hepatitis [...] - 80.0 ng/mL 12/28/2024 2:56 PM EDT [facility] Blood Venous blood specimen / Unknown Venipuncture / Unknown 12/28/2024 11:59 AM EDT 12/28/2024 11:59 AM EDT Narrative [facility] - 12/28/2024 2:56 PM EDT Testing performed on [employer] Supervisor, standardized against NIST SRM 2972. When testing [...] to 80 ng/mL Possible toxicity: >100 ng/mL Chandrakant Mar MD LAB BLOOD ORDERABLES Final Res ult [facility] [address] [place] [address] * (ABNORMAL) Folate (12/28/2024 11:59 AM EDT) Folate, Serum 3.3(L) >4.6 ng/mL 12/28/2024 2:13 PM EDT [facility] Blood Venous blood specimen / Unknown Venipuncture / Unknown 12/28/2024 11:59 AM EDT 12/28/2024 11:59 AM EDT Chandrakant Mar MD LAB BLOOD ORDERABLES Final Res ult [facility] [address] [place] [address] * Vitamin B12 (12/28/2024 11:59 AM EDT) Vitamin B12, Serum 295 210 - 1,033 pg/mL 12/28/2024 2:13 PM EDT [facility] Blood Venous blood specimen / Unknown Venipuncture / Unknown 12/28/2024 11:59 AM EDT 12/28/2024 11:59 AM EDT us Chandrakant Mar MD LAB BLOOD ORDERABLES Final Res ult [facility] [address] [place] [address] * CT Enterography (12/02/2024 9:26 AM EDT) [...] 2 Antibody/Antigen Screen (01/28/2023 6:03 PM EDT) [facility] HIV 1 & 2 Antibody/Antigen Screen Non Reactive Non Reactive 01/28/2023 7:03 PM EDT [facility] Comment:Screening for HIV 1 & 2 antibodies, and P24 antigen is NONREACTIVE. No confirmatory testing is required. Blood Venous blood specimen / Unknown Venipuncture / Unknown 01/28/2023 6:03 PM EDT 01/28/2023 6:21 PM EDT Jack Bradford MD LAB BLOOD ORDERABLES Final Res ult Performing Organization Address City/[facility]/ZIP Co de Phone Number [facility] [address] [place] [address] * Hepatitis C Antibody - ED (01/28/2023 6:03 PM EDT) [facility] Hepatitis C Antibody Negative Negative 01/28/2023 7:05 PM EDT [facility] Blood Venous blood specimen / Unknown Venipuncture / Unknown 01/28/2023 6:03 PM EDT 01/28/2023 6:21 PM EDT Jack Bradford MD LAB BLOOD ORDERABLES Final Res ult Performing Organization Address City/[facility]/ZIP Co de Phone Number [facility] [address] [place] [address] * Chlamydia trachomatis by PCR (01/06/2021 6:33 PM EDT) [facility] Chlamydia trachomatis DNA PCR Result Not Detected Not Detected 01/07/2021 1:25 PM EDT [facility] Urine Urine specimen obtained by clean catch procedure / Unknown Non-blood Collection / Unknown 01/06/2021 6:33 PM EDT 01/06/2021 7:00 PM EDT Narrative [facility] - 01/07/2021 1:25 PM EDT This test is performed by the [employer] m2000 instrument for Real Time PCR C. trachomatis and N. gonorrhea. This test is FDA approved for use with endocervical, vaginal, and urine specimens. This test is used for clinical purposes. It should not be regarded as invesigational or for research. The [facility] Clinical Microbiology Laboratory is certified under the Clinical Laboratory Improvement Amendments of 1988 (CLIA-88) as qualified to perform high complexity clinical laboratory testing. us Brittani Fajardo MD LAB MICROBIOLOGY - GENERAL LOUISE CHERY Final Result [facility] [address] [place] [address] from Last 3 Months or Most Recently Relevant to Health Maintenance Insurance [place] [id number] [facility] MEDICAID [place] [id number] Advance Directives * Full Code (Latest Code Status on File) Date Activated Date Inactivated Comments 01/23/2021 2:35 AM 01/28/2021 4:43 PM Question Answer Comments Patient has decision-making capacity? No Healthcare Surrogate: Parent(s) of the patient Care Teams Outside Machinist Apprentice Relationship Specialty Start Date End Date Nataly Olvera PA [address] [place] [address] PCP - General 02/03/23
--- OUTSIDE RECORDS SUMMARY | 2025-02-22 16:46 | XMS_ITS | Encounter Summary ---
Author Organization Healthcare Address [address] [id number] Care Team Providers Care Teacher Dancing Name Role Phone Nataly Olvera Primary Care Provider [phone] Encounter Details Date Type Department Care Team (Late st Contact Info) Description 12/28/2024 Results Follow-Up [facility] Medicine Specialties [address], [address] [place] [address] Iza Parks MD [address] [place] [address] Social History Tobacco Use Types Packs/Day Years [...] hopeless Not at all 12/28/2024 10:45 AM CATRCAHITAT David Alexandra Patient Health Questionnaire -2 Score [...] Description 05/02/2025 3:40 PM EDT Office Visit [facility] Medicine Specialties [address], [address]nd [place] [address] Sarbjit Coker MD [address] [place] [address] 11/21/2025 3:15 PM EDT Office Visit [facility] Eye Care - Pediatrics [address] [place] [address] Slim Riley MD [address] [address] documented as of this encounter [...] documented as of this encounter Care Teams Teacher Dancing Relationship Specialty Start Date End Date Nataly Olvera PA [address] [place] [address] PCP - General 02/03/23 documented as of this encounter
--- OUTSIDE RECORDS SUMMARY | 2025-02-22 16:46 | XMS_ITS | Encounter Summary ---
Author Organization Healthcare Address [address] [id number] Care Team Providers Care Electronic Security Technician Name Role Phone Nataly Olvera Primary Care Provider [phone] Encounter Details Date Type Department Care Team (Late st Contact Info) Description 11/16/2024 Results Follow-Up [facility] Medicine Specialties [address], [address] [place] [address] Iza Parks MD [address] [place] [address] Social History Tobacco Use Types Packs/Day Years [...] 05/02/2025 3:40 PM EDT Office Visit [facility] Medicine Specialties [address], [address] [place] [address] Sarbjit Coker MD [address] [place] [address] 11/21/2025 3:15 PM EDT Office Visit [facility] Eye Care - Pediatrics [address] [facility] [place] [address] Slim Riley MD [address] [facility] [address] [place] [address] documented as of this encounter Visit Diagnoses Not on filedocumented in this encounter Additional Health Concerns Assessment Noted Time A fall risk assessment has been complete d for the patient 05/25/2024 8:07 AM EDT A Body Mass Index follow-up plan has been documented for the patient 05/31/2024 11:14 AM EST documented as of this encounter Care Teams Electronic Security Technician Relationship Specialty Start Date End Date Nataly Olvera PA [address] [place] [address] PCP - General 02/03/23 documented as of this encounter
--- OUTSIDE RECORDS SUMMARY | 2025-02-22 16:46 | XMS_ITS | Encounter Summary ---
Author Organization Healthcare Address [address] [id number] Care Team Providers Care Food Service Representative Name Role Phone WadeNataly ISI Primary Care Provider [phone] Encounter Details Date Type Department Care Team [...] Description 05/02/2025 3:40 PM EDT Office Visit [facility] [address], [address] [place] [address] Sarbjit Coker MD [address] [place] [address] 11/21/2025 3:15 PM EDT Office Visit [facility] Advanced Eye Care - Pediatrics [address] [place] [address] Slim Riley MD [address] [address] documented as of this encounter [...] documented as of this encounter Care Teams Food Service Representative Relationship Specialty Start Date End Date Nataly Olvera PA [address] [place] [address] PCP - General 02/03/23 documented as of this encounter
--- OUTSIDE RECORDS SUMMARY | 2025-02-22 16:46 | XMS_ITS | Encounter Summary ---
Author Organization Healthcare Address [address] [place] [address] Care Team Providers Care Ornamental Bronze Worker Name Role Phone Nataly Olvera ISI Primary Care Provider [phone] Encounter Details Date Type Department Care Team (Late st Contact Info) Description 02/03/2024 Lab Requisition [facility] [address] [place] [address] Anuj Guy MD [address] [facility] [address] [place] [address] Diarrhea, unspecified Social History Tobacco Use Types [...] Description 05/02/2025 3:40 PM EDT Office Visit [facility] [address] [place] [id number] Sarbjit Coker MD [address] [place] [address] 11/21/2025 3:15 PM EDT Office Visit [facility] - [facility]s [address] [place] [address] Slim Riley MD [address] [place] [address] documented as of this encounter Procedures Procedure Name Priority Date/Time Associated Diagnosis Comments SURGICAL PATHOLOGY EXAM Routine 02/03/2024 Diarrhea, unspecified documented in this encounter Results * Surgical Pathology Exam (02/03/2024) Case Report Surgical Pathology Case: [id number] Authorizing Provider: Anuj Guy MD Collected: 02/03/2024 Ordering Location: [facility] Lab Received: 02/03/2024 1035 Pathologist: Emmanuel Thomas MD Specimens: A) - Duodenum, duodenal biopsy B) - Gastric, gastric biopsy C) - Colon, random colon biopsy D) - Sigmoid Colon, sigmoid polyp 02/05/2024 8:25 AM EDT [facility] Final Diagnosis A. DUODENUM, BIOPSY: - NO PATHOLOGIC ABNORMALITY - NO EVIDENCE OF VILLOUS ABNORMALITY OR INTRAEPITHELIAL LYMPHOCYTOSIS B. STOMACH, BIOPSY: - H. PYLORI GASTRITIS - NEGATIVE FOR INTESTINAL METAPLASIA OR DYSPLASIA C. COLON, RANDOM, BIOPSY: - NO PATHOLOGIC ABNORMALITY; NO EVIDENCE OF MICROSCOPIC COLITIS D. SIGMOID COLON, POLYP, BIOPSY: - HYPERPLASTIC POLYP 02/05/2024 8:25 AM EDT [facility] at 0825 EDT Clinical Information Diarrhea, unspecified Nausea Abdominal pain History of ulcers Dyspepsia 02/05/2024 8:25 AM EDT [facility] Gross Description A. DUODENAL BIOPSY Received in formalin labeled d uodenal biopsy , are 5 singh-red soft tissue fragments measuring 0.2-0.5 cm in greatest dimension. Specimen submitted entirely in cassette A1. Cold Time: 0 Chyann R [place] B. GASTRIC BIOPSY Received in formalin labeled g astric biopsy , are 4 singh-red soft tissue fragments measuring 0.2-0.3 cm in greatest dimension. Specimen submitted entirely in cassette B1. Cold Time: 0 Chyann R [place] C. RANDOM COLON BIOPSY Received in formalin labeled r andom colon biopsy , are multiple singh-red soft tissue fragments measuring 0.2-0.3 cm in greatest dimension. Specimen submitted entirely in cassette C1 and C2. Cold Time: 0 Chyann R [place] D. SIGMOID POLYP Received in formalin labeled [...] LAB PATHOLOGY ORDERABLES Final Result [facility] [address] [place] [address] documented in this encounter Visit Diagnoses Diagnosis Diarrhea, unspecified documented in this encounter Additional Health Concerns Assessment Noted Time A fall risk assessment has been complete d for the patient 12/17/2023 10:32 AM EDT A Body Mass Index follow-up plan has been documented for the patient 12/24/2023 12:11 PM EDT documented as of this encounter Care Teams Ornamental Bronze Worker Relationship Specialty Start Date End Date Nataly Olvera PA [address] [place] [address] PCP - General 02/03/23 documented as of this encounter
== END 2025-02-22 23:59 | disposition home or self-care (01) ==
LOC: LAB.DROPOF 16:44
PROVIDERS: PCP Obstetrics & Gynecology; Visit Provider Obstetrics & Gynecology
DX: N89.8 Other specified noninflammatory disorders of vagina (principal)
CPT/HCPCS: 87798; 87801

== ENCOUNTER 2025-05-30 13:04 | Outpatient (CLI) | payer OTHER, SELFPAY ==
--- OUTSIDE RECORDS SUMMARY | 2025-05-02 14:40 | XMS_ITS | Encounter Summary ---
Author Organization [facility] Address [address] [place] [address] Care Team Providers Care Saute Chef Name Role Phone Nataly Olvera ISI Primary Care Provider [phone] Reason for Referral * Consultation (Routine) - Authorized Specialty Diagnoses / Procedures Referred By Candy jain Referred To Contact Diagnoses Abdominal pain, right upper quadrant Emi Ruffin MD [address] [facility] [address] [place] [address] Phone: tel: fax: Referral ID Status Reason Start Date Expiration Date V isits Requested Visits Authorized [id number] Authorized 05/02/2025 11/01/2026 1 1 Reason for Visit * Reason Comments Diarrhea, unspecified type * Consultation (Routine) - Closed Specialty Diagnoses / Procedures Referred By Candy jain Referred To Contact Diagnoses Diarrhea, unspecified type Chandrakant Mar MD [address] [facility] [address] [place] [address] Phone: tel: fax: Referral ID Status Reason Start Date Expiration Date Visits Re quested Visits Authorized [id number] Closed 12/28/2024 06/29/2026 1 1 Encounter Details Date Type Department Care Team (Late st Contact Info) Description 05/02/2025 3:40 PM EDT Office Visit [place] [facility] [address] [place] [address] Sarbjit Coker MD [address] [place] [address] Abdominal pain, right upper quadrant (Primary Dx) [...] Laly Coker MD GI Fellow, PGY-5 Pager: [phone] Answers submitted by the patient for this [...] Laterality Date ADENOIDECTOMY APPENDECTOMY N/A Appendectomy from [facility] [employer] BARTHOLIN GLAND CYST EXCISION 08/2024 EYE SURGERY INCISION AND DRAINAGE, ABCESS 05/2024 STRABISMUS SURGERY Bilateral 06/2022 TONSILECTOMY, ADENOIDECTOMY, BILATERAL MYRINGOTOMY AND TUBES N/A Tonsillectomy With Adenoidectomy from [facility] [employer] TONSILLECTOMY [3] Family History Problem Relation Name [...] 200 MG tablet, , Disp: , Rfl: bcwognin-oxebxfzpg-upwulfkcwcdbjmnixz (Polydex) 3.5-29434-0.1 ointment ophthalmic ointment, Apply small amount to [...] Description 11/21/2025 3:15 PM EDT Office Visit [facility] - Pediatrics [address] [place] [address] Slim Riley MD [address] [address] 11/28/2025 3:40 PM EDT Office Visit [facility] Medicine Specialties [address] [place] [address] Sarbjit Coker MD [address] [place] [address] Scheduled Referrals Name Type Priority [...] documented as of this encounter Care Teams Saute Chef Relationship Specialty Start Date End Date Nataly Olvera PA [address] [place] [address] PCP - General 02/03/23 documented as of this encounter
--- OUTSIDE RECORDS SUMMARY | 2025-05-30 13:26 | XMS_ITS | Clinical Summary ---
Author Organization [facility] Address [address] [place] [address] Care Team Providers Care Remote Ruby On Rails Developer Name Role Phone Nataly Olvera ISI Primary Care Provider [phone] Allergies Active Allergy Reactions Criticality Noted Date Comments Azithromycin Other - please docum ent in the comment field,Rash Low 03/27/2015 rash Ferrous Sulfate Other - please docum ent in the comment field Low 05/02/2025 Ibuprofen Unknown - Patient st ates they [...] Activ e Rimegepant Sulfate 75 MG tablet dispersibleIndic ations:Migraine without aura and without status migrainosus, not intractable Take 75 mg by mouth if needed (for acute headache, not more than 1 tablet for 24 hours). 15 tablet 1 2 Active Additional Information Patient not taking.Reported on 05/02/2025 neomycin-polymyx in-dexamethameth asone (Polydex) 3.5-05796-7.1 ointment ophthalmic ointment Apply small amount to operative eye(s) 2 times per day for 1 week. 3.5 g 1 2 Active Additional Information Patient not taking.Reported on 05/02/2025 QuickVue At-Home Covid-19 Test kit 2 Active norethindrone (Micronor) 0.35 MG tablet 2 Active oseltamivir (Tamiflu) 75 MG capsule 2 Active oxyCODONE-acetam inophen (Percocet) 5-325 MG tablet 2 Active methocarbamol (Robaxin) 750 MG tablet Take 1 tablet (750 mg) by mouth 3 (three) times a day if needed for muscle spasms for up to 3 days. For severe symptoms, you may take 2 tablets (1500 mg) by mouth 3 times daily. 9 tablet 3 Active Additional Information Patient not taking.Reported on 05/02/2025 cyanocobalamin (Vitamin B-12) 1000 MCG/ML injection 3 Active levoFLOXacin (Levaquin) 500 MG tablet 3 Active busPIRone (Buspar) 5 MG tablet 3 Active modafinil (Provigil) 200 MG tablet 3 Active propranolol LA (Inderal LA) 120 MG 24 hr capsule 3 Active Ubrelvy 100 MG tablet Please take 1 tab at onset of headache and may repeat in 2 hours once for up to 10 times/month 10 each 3 3 Active Fremanezumab-vfr m (Ajovy) 225 MG/1.5ML solution auto-injector Inject 1 pen. under the skin every 30 (thirty) days. 1.5 mL 5 3 Active Additional Information Patient not taking.Reported on 05/02/2025 Xifaxan 550 MG tablet Take 1 tablet (550 mg) by mouth 3 (three) times a day. 4 Active amitriptyline (Elavil) 10 MG tablet Take 1 tablet by mouth nightly. 30 tablet 6 5 12/29/19 26 Active Additional Information Patient not taking.Reported on 05/02/2025 folic acid (Folvite) 1 MG tablet 5 Active Vitamin D3 25 MCG (1000 UT) capsule 5 Active hyoscyamine (Levsin) 0.125 MG SL tablet Take 1 tablet by mouth every 12 hours as needed for cramping. Dissolve tab under the tongue 30 tablet 1 5 Active pantoprazole (Protonix) 40 MG EC tablet Take 1 tablet by mouth daily before breakfast. Do not crush, chew, or split. 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 Narcolepsy 06/13/2024 Pelvic and perineal pain 05/12/2024 Unspecified abnormal finding in specimens from female genital organs 05/08/2024 Bartholin's gland abscess 06/11/20232022 Allergic rhinitis 06/11/2023 06/11/2023 Anxiety 06/11/2023 06/11/2023 B12 deficiency anemia 06/11/2023 06/11/2023 Burn 06/11/2023 06/11/2023 Daytime somnolence 06/11/2023 06/11/2023 Headache 06/11/2023 06/11/2023 Knee contusion 06/11/2023 06/11/2023 Migraine 06/11/2023 06/11/2023 Neck swelling 06/11/2023 06/11/2023 Warts of foot 06/11/2023 06/11/2023 Right wrist pain 06/11/2023 06/11/2023 Right wrist sprain 06/11/2023 06/11/2023 Shoulder strain 06/11/2023 06/11/2023 Vaginal discharge 06/11/2023 06/11/2023 Vitamin D deficiency 06/11/2023 06/11/2023 Wrist contusion 06/11/2023 06/11/2023 Kidney stone 11/14/2021 Renal scarring 11/14/2021 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 Migraine without aura and wi thout status migrainosus, not intractable 05/08/2021 Post concussion syndrome 05/06/2021 RUQ abdominal pain 01/23/2021 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 Intractable migraine without aura and without status migrainosus 11/04/2016 Appendicitis with abscess 04/25/2015 Resolved Problems Problem Noted Date Diagnosed Date Resolved Date Acute bronchitis 06/11/2023 06/11/2023 04/16/2025 COVID-19 06/11/2023 06/11/2023 04/16/2025 Fatigue 06/11/2023 06/11/2023 04/16/2025 Gastroenteritis 06/11/2023 06/11/2023 04/16/2025 Viral upper respiratory illness 06/11/2023 04/16/2025 Influenza-like symptoms 06/11/2023 06/11/202303/28 Pharyngitis 06/11/2023 06/11/2023 04/16/2025 Right knee pain 06/11/2023 06/11/2023 04/16/2025 Syncope 06/11/2023 06/11/2023 04/16/2025 Diarrhea 06/11/2023 06/11/2023 04/16/2025 Acute UTI (urinary tract infection) 11/14/2021 04/16/2025 Generalized abdominal pain 11/14/2021 0 04/16/2025 Myopia of both eyes 10/15/2021 04/16/20 Pyelonephritis 01/28/2021 04/16/2025 Ileus 01/28/2021 01/28/2021 Constipation 01/28/2021 04/16/2025 Hematemesis 01/28/2021 01/28/2021 Nausea & vomiting 08/12/2019 04/16/2025 Vasovagal near-syncope 10/01/201704/16 Encounters Date Type Department Care Team Description 05/13/2025 Immunization [facility] [address] [place] [address] Nohemy Genao, RN Need for immunization against influenza (Primary Dx) 05/02/2025 3:40 PM EDT Office Visit [facility] [address] [place] [address] Sarbjit Coker MD Abdominal pain, right upper quadrant (Primary Dx) 05/02/2025 Travel 05/01/2025 Travel 03/07/[address] [facility] [address] [place] [address] Patricia Iniguez RN Diarrhea, unspecified type from Last 3 Months Immunizations Immunization Administration Dates Next Due DTaP 01/24/2008, 6,2004,05/29,2004 DTaP, Unspecified 01/24/2008, 6,2004,05/29,2004 Hep A, ped/adol, 2 dose 07/17/2020,03/01/2018 Hep B, Adolescent or Pediatric 02/05/2005,2003,2004 HiB, unspecified 02/05/2005, 4,2004,04/03 Hib (PRP-OMP) 02/05/2005, 4,2004,04/03 IPV 01/24/2008, 4,2004,04/03 Influenza, injectable, quadr ivalent, preservative free 05/11/2023 Influenza, seasonal, injecta ble, preservative free 05/13/2025,05/10/2024 MMR 02/23/2015,01/24/2008,02/05/2005 Meningococcal A Polysacchari de (Non-us) 02/23/2015 Meningococcal ACWY, unspecified 02/23/2015 Meningococcal MCV4P 07/17/2020,02/23/2015 Meningococcal MPSV4 02/23/2015 Tdap 07/19/2023,06/29/2023,02/23/2015 Varicella 07/17/2020,02/23/2015,2004 Family History Medical History Relation Name Comments Ulcerative colitis Cousin Blood clots Father Stroke Maternal Grandmother Hannah linn Arthritis Mother Asia [employer]ins loan Diabetes Mother [...] F) 05/02/2025 3:34 PM EDT Respiratory Rate 16 02/13/2025 7:16 AM EDT Oxygen Saturation 97% 05/02/2025 3:34 PM EDT Inhaled Oxygen Concentration - - Weight 68.7 kg (151 lb 7.3 oz) 05/02/2025 3:34 P M EDT Height 160 cm (5' 3 ) 05/02/2025 3:34 PM EDT Body Mass Index 26.83 05/02/2025 3:34 PM EDT Plan of Treatment Upcoming Encounters Date Type Department Care Team (Late st Contact Info) Description 11/21/2025 3:15 PM EDT Office Visit [facility] [address] [place] [address] Slim Riley MD [address] [place] [address] 11/28/2025 3:40 PM EDT Office Visit [facility] [address] [place] [address] Sarbjit Coker MD [address] [place] [phone] Health Maintenance Due Date Last Done Comments [facility]-Infant/Child/Adol SDOH Screenings 2004 IAU-FVIWN-12 Vaccine (#1) 01/21/2009 HPV Vaccines (1 - 3-dose series) 01/21/2019 [facility]-Chlamydia and Gonorrhea Screening 01/06/2022 01/06/2021, 01/06/2021 [facility]- SDOH Screenings 01/21/2022 [facility]-Adult SDOH Screenings 01/21/2022 [facility]-Pap Smear 01/21/2025 [facility]-Depression Screening 12/28/2025 025, 12/28/2024, 05/25/2024 [facility]-DTaP,Tdap,and Td Vaccines (9 - Td or Tdap) 07/19/2033 07/19/2023, 06/29/2023, 02/23/2015, Additional history exists [facility]-Zoster Vaccines (1 of 2) 01/21/2054 07/17/2020, 02/23/2015, 2004 [facility]-HIB Vaccines Completed 02/05/2005, , 2004, Additional history exists [facility]-Hepatitis B Vaccines Completed 005, 2004, 2004 [facility]-IPV Vaccines Completed 01/24/2008, , 2004, Additional history exists [facility]-Hepatitis A Vaccines Completed 07/17/2020, 0 12/2017 [facility]-Varicella Vaccines Completed , 02/23/2015, 2004 [facility]-HIV Screening Completed 01/28/2023 [facility]-Hepatitis C Screening Completed 01/28/2023 [facility]-Obesity Intervention Completed 025, 11/21/2024, 05/25/2024, Additional history exists [facility]-Influenza Vaccine Completed 05/13/2025 , 05/10/2024, 05/11/2023 [facility]-Pneumococcal Vaccine: Pediatrics (0 to 5 Years) and At-Risk Patients (6 to 49 Years) Aged Out No longer eligible based on patient's age to complete this topic [facility]-Rotavirus Vaccines Aged Out No lo nger eligible based on patient's age to complete this topic Procedures Procedure Name Priority Date/Time Associated Diagnosis Comments CALPROTECTIN, FECAL BY IMMUNOASSAY (SO) Routine 03/07/2025 2:55 PM EDT Diarrhea, unspecified type HEPATITIS C ANTIBODY - ED W/REFLEX TO HCV QUANT PCR STAT 01/28/2023 6:03 PM EDT HIV 1/2 ANTIBODY/ANTIGEN SCREEN WITH REFLEX TO HIV I/II DIFFERENTIATION STAT 01/28/2023 6:03 PM EDT CHLAMYDIA TRACHOMATIS DNA BY PCR STAT 01/06/2021 6:33 PM EDT from Last 3 Months or Most Recently Relevant to Health Maintenance Results * Calprotectin, Stool (03/07/2025 2:55 PM EDT) Stool Stool specimen / Unknown us Chandrakant Mar MD LAB BODY FLUIDS AND STOOLS ORD ERABLES Final Result EXTERNAL LAB * HIV 1 & 2 Antibody/Antigen Screen (01/28/2023 6:03 PM EDT) HIV 1 & 2 Antibody/Antigen Screen Non Reactive Non Reactive 01/28/2023 7:03 PM EDT [facility] Comment:Screening for HIV 1 & 2 antibodies, and P24 antigen is NONREACTIVE. No confirmatory testing is required. Blood Venous blood specimen / Unknown Venipuncture / Unknown 01/28/2023 6:03 PM EDT 01/28/2023 6:21 PM EDT us Jack Bradford MD LAB BLOOD ORDERABLES Final Res ult [facility] [address] [place] [address] * Hepatitis C Antibody - ED (01/28/2023 6:03 PM EDT) Hepatitis C Antibody Negative Negative 01/28/2023 7:05 PM EDT [facility] Blood Venous blood specimen / Unknown Venipuncture / Unknown 01/28/2023 6:03 PM EDT 01/28/2023 6:21 PM EDT Jack Bradford MD LAB BLOOD ORDERABLES Final Res ult [facility] [address] [place] [address] * Chlamydia trachomatis by PCR (01/06/2021 6:33 PM EDT) Pathologist [facility] Chlamydia trachomatis DNA PCR Result Not Detected Not Detected 01/07/2021 1:25 PM EDT [facility] Urine Urine specimen obtained by clean catch procedure / Unknown Non-blood Collection / Unknown 01/06/2021 6:33 PM EDT 01/06/2021 7:00 PM EDT Narrative [facility] - 01/07/2021 1:25 PM EDT This test is performed by the [employer] m2000 instrument for Real Time PCR C. trachomatis and N. gonorrhea. This test is FDA approved for use with endocervical, vaginal, and urine specimens. This test is used for clinical purposes. It should not be regarded as invesigational or for research. The [facility] Microbiology [facility] is certified under the Clinical Laboratory Improvement Amendments of 1988 (CLIA-88) as qualified to perform high complexity clinical laboratory testing. Brittani Fajardo MD LAB MICROBIOLOGY - GENERAL LOUISE CHERY Final Result Performing Organization Address City/[facility]/ZIP Co de Phone Number [facility] [address] [place] [address] from Last 3 Months or Most Recently Relevant to Health Maintenance Insurance [place] [id number] Advance Directives * Full Code (Latest Code Status on File) Date Activated Date Inactivated Comments 01/23/2021 2:35 AM 01/28/2021 4:43 PM Question Answer Comments Patient has decision-making capacity? No Healthcare Surrogate: Parent(s) of the patient Care Teams Remote Ruby On Rails Developer Relationship Specialty Start Date End Date Nataly Olvera PA [address] [place] [address] PCP - General 02/03/23
--- OUTSIDE RECORDS SUMMARY | 2025-05-30 13:26 | XMS_ITS | Clinical Summary ---
Author Organization [facility] Address [address] [place] [address], [address] [place] [address] Care Team Providers Care Trapeze Performer Name Role Phone Unavailable Primary Care Provider [...] Plan of Treatment Not on file Insurance [id number] [facility] [email or web address]]VITO Morel [facility] MEDICAID
--- OUTSIDE RECORDS SUMMARY | 2025-05-30 13:27 | XMS_ITS | Encounter Summary ---
Author Organization [facility] Address [address] [place] [address] Care Team Providers Care Planning Intern Name Role Phone WadeNataly ISI Primary Care Provider Encounter Details Date Type Department Care Team (Late st Contact Info) Description 05/13/2025 Immunization [facility] [address] [place] [address] Nohemy Genao HYDROLOGIC ENGINEER Need for immunization against influenza (Primary Dx) Social History Tobacco Use Types [...] Description 11/21/2025 3:15 PM EDT Office Visit [facility] [address] [place] [address] Slim Riley MD [address] [address] 11/28/2025 3:40 PM EDT Office Visit [facility] Medicine [facility]ties [address] [place] [address] Sarbjit Coker MD [address] [place] [address] documented as of this encounter Visit Diagnoses Diagnosis Need for immunization against influenza- Primary Need for prophylactic vaccination and inoculation against influenza documented in this encounter Additional Health Concerns Assessment Noted Time PHQ-9 Depression Total Score: 0 12/29/19 25 10:45 AM EDT A fall risk assessment has been complete d for the patient 05/02/2025 3:37 PM EDT A Body Mass Index follow-up plan has been documented for the patient 05/09/2025 1:45 PM EDT documented as of this encounter Care Teams Planning Intern Relationship Specialty Start Date End Date Nataly Olvera PA [address] [place] [address] PCP - General 02/03/23 documented as of this encounter
--- OUTSIDE RECORDS SUMMARY | 2025-05-30 13:27 | XMS_ITS | Encounter Summary ---
Author Organization [facility] Address [address] [place] [address] Care Team Providers Care Grain Drier Name Role Phone WadeNataly ISI Primary Care Provider [phone] Encounter Details Date Type Department Care Team (Latest Contact Info) Description 05/02/2025 Travel Social History Tobacco Use Types Packs/Day [...] Description 11/21/2025 3:15 PM EDT Office Visit [facility] [address] [facility] [place] [address] Slim Riley MD [address] [place] [address] 11/28/2025 3:40 PM EDT Office Visit [facility] [address] [place] [address] Sarbjit Coker MD [address] [place] [address] documented as of this encounter Visit [...] documented as of this encounter Care Teams Grain Drier Relationship Specialty Start Date End Date Nataly Olvera PA [address] [place] [address] PCP - General 02/03/23 documented as of this encounter
--- OUTSIDE RECORDS SUMMARY | 2025-05-30 13:27 | XMS_ITS | Continuity of Care Document ---
Author Organization [employer], [facility] Address [address] [place] [address] Assessment No assessment recorded. Plan of Treatment Reminders Order Date Submit Date Provider Last Modified By Organization Details Last Modified Time Details Appointments None recorded. Lab None recorded. Referral None recorded. Procedures None recorded. Surgeries None recorded. Imaging None recorded. Medication Orders ketorolac 60 mg/2 mL intramuscul ar solution [address], [address], [address], 13:25:54 Patient TargetsNo targets recorded. Patient InstructionsNo instructions recorded. Reason for Referral None Reported. Problems Name Problem SNOMED Code Status Onset Date Resolution Date Notes Provider Name and Address Organization Details Recorded Time Narcolepsy 59244549 Active 024 ISI Klein [address] [place] [address], [phone], [employer] 17:35:11 Refractory migraine 126544578 Active 025 ISI Klein [address] [place] [address], [phone], [employer] 13:26:11 Problem Notes None recorded. Procedures Surgical History Date Name Laterality Status Provider Name and Address Organization Details Recorded Time Appendectomy completed [employer] 06/13/2024 17:26:06 Eye Surgery completed [employer] 06/13/2024 17:26:06 Tonsillectomy completed Su Trevino [employer] 06/13/2024 17:26:06 Imaging Results None recorded. Procedure Notes None recorded. Medical Equipment None Reported. Allergies Allergen ID Allergen Name Allergen Category Reaction Reaction Severity Criticality Documentation Date Start Date Code Code System Note Provider Name and Address Organization Details Recorded Time 86972 azithromy namrata medicatio n Not available Not available Not available 06/13/2024 52462 RxNorm Su serrano, [employer] 17:23:31 39650 ibuprofen medicatio n Not available Not available Not available 06/13/2024 5640 RxNorm Susonja Trevino [employer], [employer]. 17:23:41 57280 ferrous sulfate medicatio n Not available Not available Not available 06/13/2024 90708 RxNorm Susonja Trevino [employer], [employer]. 17:24:19 Medications Name Sig Start Date Stop Date Status Note LastModified by Organization Details LastModified Time amitriptyli ne baclofen vaginal # 2% 2% cream APPLY A PEA-SIZED AMOUNT TO AFFECTED AREA 2-4 TIMES A DAY 04/18 completed Not Available Not Available Not Available tetracyclin e 500 mg capsule TAKE 1 CAPSULE BY MOUTH 4 TIMES DAILY FOR 14 DAYS 06/13 completed Not Available Not Available Not Available doxycycline hyclate 100 mg capsule 04/18 completed Not Available Not Available Not Available fluconazole 150 mg tablet 06/13 completed Not Available Not Available Not Available promethazin e 12.5 mg tablet 04/18 completed Not Available Not Available Not Available metronidazo le 250 mg tablet TAKE 1 TABLET BY MOUTH 4 TIMES DAILY FOR 14 DAYS 06/13 completed Not Available Not Available Not Available metronidazo le 500 mg tablet 06/13 completed Not Available Not Available Not Available sulfamethox azole 800 mg-trimetho prim 160 mg tablet 04/18 completed Not Available Not Available Not Available acetaminoph en 500 mg tablet TAKE ONE TABLET BY MOUTH EVERY 6 HOURS NEEDED FOR FEVER OR pain 04/18 completed Not Available Not Available Not Available ketorolac 10 mg tablet 04/18 completed Not Available Not Available Not Available amitriptyli ne 10 mg tablet TAKE 1 TABLET BY MOUTH NIGHTLY 2024 active Not Available Not Available Not Avai lable pantoprazol e 40 mg tablet,ashwini yed release 06/13 completed Not Available Not Available Not Available bismuth subsalicyla te 262 mg chewable tablet 06/13 completed Not Available Not Available Not Available omeprazole 20 mg capsule,del ayed release 06/13 completed Not Available Not Available Not Available folic acid 1 mg tablet TAKE 1 TABLET BY MOUTH ONCE DAILY 2024 active Not Available Not Available Not Avai lable propranolol ER 120 mg capsule,24 hr,extended release TAKE 1 CAPSULE BY MOUTH ONCE DAILY active Not Available Not Available No t Available Provigil 200 mg tablet TAKE 1 TABLET BY MOUTH EVERY DAY DIRECTED FOR NARCOLEPS Y active Not Available Not Available No t Available ketorolac 60 mg/2 mL intramuscul ar solution Inject 2 mL by intramusc ular route. 2024 active Not Available Not Available Not Avai lable amoxicillin 875 mg-potassiu m clavulanate 125 mg tablet 04/18 completed Not Available Not Available Not Available oxycodone 5 mg tablet TAKE ONE TABLET BY MOUTH EVERY 8 HOURS NEEDED FOR PAIN MAY CAUSE DROWSINES S 04/18 completed Not Available Not Available Not Available cholecalcif tom (vitamin D3) 25 mcg (1,000 unit) capsule TAKE 2 CAPSULES BY MOUTH ONCE DAILY 2024 active Not Available Not Available Not Avai lable peg 3350-electr olytes 236 gram-22.74 gram-6.74 gram-5.86 gram solution 06/13 completed Not Available Not Available Not Available Xifaxan 550 mg tablet TAKE 1 TABLET BY MOUTH THREE TIMES DAILY 06/13 completed Not Available Not Available Not Available Slynd 4 mg (28) tablet active Not Available Not Available Not Available Fiber Therapy (psyllium husk-sucros e) 3 gram/7 gram oral powder active Not Available Not Available Not Available Ubrelvy 100 mg tablet active Not Available Not Available No t Available Ajovy 225 mg/1.5 mL subcutaneou s auto-inject or 06/13 completed Not Available Not Available Not Available Vitals Date Recorded Body height Body mass index (BMI) Body weight Oxygen saturation Oxygen saturation in Arterial blood by Pulse oximetry Heart rate Body temperature Systolic And Diastolic Provider Name and Address Organization Details Last Updated DateTime 160.02 cm 26.4 kg/m2 75148.9 8 g 98 % 98 % 64 /min 98.5 [degF] 108/72 mm[Hg] Anju Back [employer] 17:23:16 Social History Question Answer Notes LastModified by Organizat ion Details LastModified Time Tobacco Smoking Status Never Smoker Su Belindaann serrano [employer] 06/13/2024 17:25:58 Do You Have An Advance Directive? No Information not available 06/13/2024 Is Your Home Air Conditioned? Yes Information not available 06/13/2024 If You Are , What Was Your Level Of Alcohol Consumption Prior To ? None Information not available 06/13/2024 Do You Wear A Helmet When Biking? No Information not available 06/13/2024 What Is Your Level Of Caffeine Consumption? None Information not available 06/13/2024 What Type Of Optical Systems Engineer Do You Use? None Information not available 06/13/2024 In The 14 Days Before Symptom Onset, Have You Had Close Contact With A Laboratory-confir med COVID-19 While That Case Was Ill? No Information not available 06/13/2024 In The 14 Days Before Symptom Onset, Have You Had Close Contact With A Person Who Is Under Investigation For COVID-19 While That Person Was Ill? No Information not available 06/13/2024 Have You Been To An Area Known To Be High Risk For COVID-19? No Information not available 06/13/2024 What Type Of Diet Are You Following? REGULAR Information not available 06/13/2024 Who Is Your Employer? [employer] Information not available 06/13/2024 Have There Been Any Changes To Your Family Or Social Situation? Yes Information no t available 06/13/2024 Are There Any Guns Present In Your Home? No Information not available 06/13/2024 Which Of Your Hands Is Dominant? Right Information not available 06/13/2024 What Is Your Home Situation? Both Parents Information not available 06/13/2024 Do You Have A Medical Power Of Liner Man? No Information not available 06/13/2024 What Was The Date Of Your Most Recent Tobacco Screening? 04/18/2025 Information not available 04/18/2025 Are There Any Occupational Health Risks Where You Work? No Information not available 06/13/2024 Do You Have Any Pets? Yes Information not available 06/13/2024 Do You Use Protection During Sex? Usually Information not available 06/13/2024 What Is Your Relationship Status? Single Information not available 06/13/2024 Have You Repeated Any Grades? No Information not available 06/13/2024 Do You Use Your Seat Belt Or Car Seat Routinely? Yes Information not available 06/13/2024 Are You Sexually Active? Yes Information not available 06/13/2024 Do You Have Any Siblings? 2 Information not available 06/13/2024 Do You Have Smoke And Carbon Monoxide Detectors In Your Home? No Information not available 06/13/2024 Are You Passively Exposed To Smoke? No Information no t available 06/13/2024 Are There Any Smokers In Your House? No Information not available 06/13/2024 Do You Participate In Social Media? No Information not available 06/13/2024 Do You Use Sunscreen Routinely? No Information not available 06/13/2024 Has Tobacco Cessation Counseling Been Provided? No Information not available 06/13/2024 Have You Recently Traveled Abroad? No Information not available 06/13/2024 Do You Have Difficulty Walking Or Climbing Stairs? No Information not available 06/13/2024 Are You Currently In School? Yes Information not available 04/18/2025 What Contraceptive Method Was Reported At Start Of This Visit? Combined Oral Contraceptive Pills Information not available 04/18/2025 Do You Have Any Dietary Restrictions? No Information not available 06/13/2024 Sex: Female Functional Status Question Answer Note LastModified by Organizat ion Details LastModified Time Do you use any illicit or recreational drugs? No Information not available 06/13/2024 Do you or have you ever used any other forms of tobacco or nicotine? No Information not available 06/13/2024 What is your level of alcohol consumption? None Information not available 06/13/2024 Are you currently employed? Yes Information not available 06/13/2024 Do you have transportation difficulties? Yes Information not available 04/18/2025 Do you have difficulty doing errands alone? No Information not available 06/13/2024 Are you able to care for yourself independently? Yes Information not available 06/13/2024 Do you have difficulty dressing, bathing, grooming, or toileting? No Information not available 06/13/2024 What is your exercise level? Occasional Information not available 06/13/2024 Mental Status Question Answer Note LastModified by Organizat ion Details LastModified Time Do you feel stressed (tense, restless, nervous, or anxious, or unable to sleep at night)? OS5909-8 Information not available 06/13/2024 Do you have difficulty concentrating, remembering or making decisions? No Information no t available 06/13/2024 Are you or have you been involved with bullying? No Information not available 06/13/2024 Family History Relationship Description Onset Age of this Age Resolved Age Notes LastModified by Organization Details LastModified Time Mother Arthritis Not availabl e 06/13/2024 17:25:03 Mother Diabetes mellitus Not available 2023 17:25:03 Father Hypertensive disorder Not available 2023 17:25:03 Medical History Condition Response Anxiety Disorder Y Bladder or Kidney Problems Y Headaches Y GI Problems Y Gynecological History Statement/Question Response Date of LMP 02/04/2022 Menses Monthly N HPV Vaccine N Date of Last Pap Smear Current Control Method BCPs Most Recent Mammogram Obstetrics History GPAL:G 0 P 0 0 0 0 Immunizations Vaccine Type Date Status Note Provider Nam e and Address Organization Details Recorded Time Tdap 3 completed ISI Klein [address] [place] [address], [phone], [facility] [employer] 06/13/2024 17:47:13 Hep B, adolescent or pediatric 4 completed Not Available [facility] 04/18/2025 17:17:44 Hep B, adolescent or pediatric 4 completed Not Available [facility] 04/18/2025 17:17:44 DTaP, unspecified formulation 4 completed Not Available [facility] 04/18/2025 17:17:44 Hib, unspecified formulation 4 completed Not Available [facility] 04/18/2025 17:17:44 IPV 4 completed Not Available [employer] 04/18/2025 17:17:44 DTaP, unspecified formulation 4 completed Not Available [employer] 04/18/2025 17:17:44 Hib, unspecified formulation 4 completed Not Available [facility] 04/18/2025 17:17:44 IPV 4 completed Not Available [facility] 04/18/2025 17:17:44 DTaP, unspecified formulation 4 completed Not Available [facility] 04/18/2025 17:17:44 Hib, unspecified formulation 4 completed Not Available [facility] 04/18/2025 17:17:44 IPV 4 completed Not Available [facility] 04/18/2025 17:17:44 varicella 5 completed Not Available [facility] 04/18/2025 17:17:44 MMR 5 completed Not Available [employer] 04/18/2025 17:17:44 Hep B, adolescent or pediatric 5 completed Not Available [facility] 04/18/2025 17:17:44 Hib, unspecified formulation 5 completed Not Available [facility] 04/18/2025 17:17:44 DTaP, unspecified formulation 6 completed Not Available [facility] 04/18/2025 17:17:44 MMR 8 completed Not Available [facility] 04/18/2025 17:17:44 IPV 8 completed Not Available [facility] 04/18/2025 17:17:44 DTaP, unspecified formulation 8 completed Not Available [facility] 04/18/2025 17:17:44 Tdap 5 completed Not Available [facility] 04/18/2025 17:17:44 meningococcal ACWY, unspecified formulation 5 completed Not Available [facility] 04/18/2025 17:17:44 varicella 5 completed Not Available [facility] 04/18/2025 17:17:44 MMR 5 completed Not Available [facility] 04/18/2025 17:17:44 Hep A, ped/adol, 2 dose 8 completed Not Available [facility] 04/18/2025 17:17:44 meningococcal MCV4P 0 completed Not Available [facility] 04/18/2025 17:17:44 Hep A, ped/adol, 2 dose 0 completed Not Available [facility] 04/18/2025 17:17:44 varicella 0 completed Not Available [facility] 04/18/2025 17:17:44 Influenza, split virus, quadrivalent, PF 3 completed Not Available [facility] 04/18/2025 17:17:44 Tdap 3 completed Not Available [facility] 04/18/2025 17:17:44 Influenza, split virus, trivalent, PF 4 completed Not Available [facility] 04/18/2025 17:17:44 Past Encounters Encounter ID Performer Location Encounter Start Date Encounter Closed Date Diagnosis/Indication Diagnosis SNOMED-CT Code Diagnosis ICD10 Code Diagnosis IMO Codes Diagnosis Note [id number] ISI Klein [facility] [address] [place] [address] 04/18/2025 17:16:47 04/18/2025 17:33:54 Refractory migraine 885423128 G43.919 27482932 Rest, fluidsTo ER if symptoms worsen or fail to resolve Health Concerns Section Related Observation LastModified by Organization Detai ls LastModified Time None Recorded Concern Status LastModified by Organization Details LastModified Time None Recorded Payers Encounter Date Sequence Insurance Name Policy Number Policy Roach Covered Member ID Roach Member ID Guarantor Name 04/18/2025 1 [place] [employer] OF [facility] MEDICAID (HMO) [id number] Karol Lockhart [id number] Karol Lockhart Notes Date Note Type Note Provider Name and Address Organization Details Recorded Time 04/18/2025 text/html ROS as noted in the HPI Patient has had a headache X 3 days and is requesting Toradol shot. MIld nausea. Headache not unlike previous headaches she has had. ISI Klein [address] [place] [address], [phone], [place] [facility] [employer] 04/20/2025 13:26:57 OBGyn Episode No OBEpisode recorded.
--- OUTSIDE RECORDS SUMMARY | 2025-05-30 13:28 | XMS_ITS | Encounter Summary ---
Author Organization Healthcare Address [address] [place] [address] Care Team Providers Care Casing In Line Feeder Name Role Phone Nataly Olvera ISI Primary Care Provider [phone] Encounter Details Date Type Department Care Team (Late st Contact Info) Description 02/03/2024 Lab Requisition [facility] [address] [place] [address] Anuj Guy MD [address] [facility] [address] [place] [address] Diarrhea, unspecified Social History Tobacco Use Types [...] Description 11/21/2025 3:15 PM EDT Office Visit [facility] [address] [place] [address] Slim Riley MD [address] [facility] [address] [place] [address] 11/28/2025 3:40 PM EDT Office Visit [place] [facility] [address] [place] [phone] Sarbjit Coker MD [address] [place] [address] documented as of this encounter Procedures Procedure Name Priority Date/Time Associated Diagnosis Comments SURGICAL PATHOLOGY EXAM Routine 02/03/2024 Diarrhea, unspecified documented in this encounter Results * Surgical Pathology Exam (02/03/2024) Case Report Surgical Pathology Case: [id number] Authorizing Provider: Anuj Guy MD Collected: 02/03/2024 Ordering Location: [facility] Lab Received: 02/03/2024 1035 Pathologist: Emmanuel Thomas MD Specimens: A) - Duodenum, duodenal biopsy B) - Gastric, gastric biopsy C) - Colon, random colon biopsy D) - Sigmoid Colon, sigmoid polyp 02/05/2024 8:25 AM EDT [facility] Final Diagnosis A. DUODENUM, BIOPSY: - NO PATHOLOGIC ABNORMALITY - NO EVIDENCE OF VILLOUS ABNORMALITY OR INTRAEPITHELIAL LYMPHOCYTOSIS B. STOMACH, BIOPSY: - H. PYLORI GASTRITIS - NEGATIVE FOR INTESTINAL METAPLASIA OR DYSPLASIA C. COLON, RANDOM, BIOPSY: - NO PATHOLOGIC ABNORMALITY; NO EVIDENCE OF MICROSCOPIC COLITIS D. SIGMOID COLON, POLYP, BIOPSY: - HYPERPLASTIC POLYP 02/05/2024 8:25 AM EDT [facility] at 0825 EDT Clinical Information Diarrhea, unspecified Nausea Abdominal pain History of ulcers Dyspepsia 02/05/2024 8:25 AM EDT [facility] Gross Description A. DUODENAL BIOPSY Received in formalin labeled d uodenal biopsy , are 5 singh-red soft tissue fragments measuring 0.2-0.5 cm in greatest dimension. Specimen submitted entirely in cassette A1. Cold Time: 0 Chyann R Hudspeth B. GASTRIC BIOPSY Received in formalin labeled g astric biopsy , are 4 singh-red soft tissue fragments measuring 0.2-0.3 cm in greatest dimension. Specimen submitted entirely in cassette B1. Cold Time: 0 Chyann R Hudspeth C. RANDOM COLON BIOPSY Received in formalin labeled r andom colon biopsy , are multiple singh-red soft tissue fragments measuring 0.2-0.3 cm in greatest dimension. Specimen submitted entirely in cassette C1 and C2. Cold Time: 0 Chyann R Kami D. SIGMOID POLYP Received in formalin labeled s igmoid colon polyp , are 2 singh-red soft tissue fragments measuring 0.2 cm in greatest dimension each. Specimen submitted entirely in cassette D1. Cold Time: 0 Chyann R Hudspeth 02/05/2024 8:25 AM EDT [facility] Tissue [...] LAB PATHOLOGY ORDERABLES Final Result [facility] [address] [place] [id number] documented in this encounter Visit Diagnoses Diagnosis Diarrhea, unspecified documented in this encounter Additional Health Concerns Assessment Noted Time A fall risk assessment has been complete d for the patient 12/17/2023 10:32 AM EDT A Body Mass Index follow-up plan has been documented for the patient 12/24/2023 12:11 PM EDT documented as of this encounter Care Teams Casing In Line Feeder Relationship Specialty Start Date End Date Nataly Olvera PA [address] [place] [address] PCP - General 02/03/23 documented as of this encounter
--- OUTSIDE RECORDS SUMMARY | 2025-05-30 13:28 | XMS_ITS | Encounter Summary ---
Author Organization Healthcare Address [address] [place] [address] Care Team Providers Care Physical Therapy Attendant Name Role Phone WadeNataly ISI Primary Care Provider [phone] Encounter Details Date Type Department Care Team (Latest Contact Info) Description 05/01/2025 Travel Social History Tobacco Use Types Packs/Day [...] Description 11/21/2025 3:15 PM EDT Office Visit [facility] [address] [facility] [place] [address] Slim Riley MD [address] [place] [address] 11/28/2025 3:40 PM EDT Office Visit [facility] [address] [place] [address] Sarbjit Coker MD [address] [place] [address] documented as of this encounter Visit [...] documented as of this encounter Care Teams Physical Therapy Attendant Relationship Specialty Start Date End Date Nataly Olvera PA [address] [place] [address] PCP - General 02/03/23 documented as of this encounter
--- OUTSIDE RECORDS SUMMARY | 2025-05-30 13:28 | XMS_ITS | Data Portability ---
Author Organization [facility] Address [address] [place] [address] Assessment No assessment recorded. Plan of Treatment Reminders Order Date Submit Date Provider Last Modified By Organization Details Last Modified Time Details Appointments None recorded. Lab None recorded. Referral None recorded. Procedures None recorded. Surgeries None recorded. Imaging None recorded. Medication Orders ketorolac 60 mg/2 mL intramuscul ar solution 2024 025 [email or web address] [facility], [address], [address], 5 13:25:54 Provigil 200 mg tablet 2023 024 [id number], [address], [id number], 4 17:40:16 Patient TargetsNo targets recorded. Patient Instructions Encounter Date Encounter Id Patient Instructions Last Modified By Organization Details Last Modified Time 06/13/2024 [id number] learning about healthy weight Not available 06/13/2024 17:55:26 narcolepsy: care instructions [email or web address] Not available 06/13/2024 17:40:08 Reason for Referral None Reported. Problems Name Problem SNOMED Code Status Onset Date Resolution Date Notes Provider Name and Address Organization Details Recorded Time Narcolepsy 96879210 Active 024 ISI Klein [address] [place], [address], [facility]. 5 17:35:11 Refractory migraine 278778994 Active Velia ISI Klein [address] [place] [address], [phone], [facility]. 13:26:11 Problem Notes None recorded. Procedures Surgical History Date Name Laterality Status Provider Name and Address Organization Details Recorded Time Appendectomy completed [employer] 06/13/2024 17:26:06 Eye Surgery completed [email or web address] 06/13/2024 17:26:06 Tonsillectomy completed [email or web address] 06/13/2024 17:26:06 Imaging Results None recorded. Procedure Notes None recorded. Medical Equipment None Reported. Allergies Allergen ID Allergen Name Allergen Category Reaction Reaction Severity Criticality Documentation Date Start Date Code Code System Note Provider Name and Address Organization Details Recorded Time 04185 azithromy namrata medicatio n Not available Not available Not available 06/13/2024 72520 RxNorm Su Belinda [employer], [employer] 17:23:31 91034 ibuprofen medicatio n Not available Not available Not available 06/13/2024 5640 RxNorm Tribzi, [employer] 17:23:41 70418 ferrous sulfate medicatio n Not available Not available Not available 06/13/2024 07556 RxNorm [employer], [employer] 4 17:24:19 Medications Name Sig Start Date Stop [...] and Address Organization Details Last Updated DateTime 5 160.02 cm 26.4 kg/m2 40536.9 8 g 98 % 98 % 64 /min 98.5 [degF] 108/72 mm[Hg] Anju Taylor [facility] 5 17:23:16 Date Recorded Body height Body mass index (BMI) [Percentile] Per age and sex Body mass index (BMI) Body weight Body temperature Oxygen saturation Oxygen saturation in Arterial blood by Pulse oximetry Heart rate Systolic And Diastolic Provider Name and Address Organization Details Last Updated DateTime 4 160.02 cm 79 % 25.2 kg/m2 73822.8 2 g 98 [degF] 98 % 98 % 99 /min 101/67 mm[Hg] Su Belinda [facility]. 4 17:29:22 Social History Question Answer Notes LastModified by Organizat ion Details LastModified Time Tobacco Smoking Status Never Smoker [facility] 06/13/2024 17:25:58 Do You Have An Advance [...] Information not available 06/13/2024 What Type Of Treasury Analyst Do You Use? None Information not available [...] Do You Have A Medical Power Of Manager Ob? No Information not available 06/13/2024 What Was [...] anxious, or unable to sleep at night)? [id number] Information not available 06/13/2024 Do you have [...] Medical History Condition Response Anxiety Disorder Y Headaches Y Bladder or Kidney Problems Y GI Problems Y Gynecological History Statement/Question Response Date of LMP 02/04/2022 Menses Monthly N HPV Vaccine N Date of Last Pap Smear Current Control Method BCPs Most Recent Mammogram Obstetrics History GPAL:G 0 P 0 0 0 0 Immunizations Vaccine Type Date Status Note Provider Nam e and Address Organization Details Recorded Time Tdap 3 completed ISI Klein [address] [place] [address], [phone], [facility] [employer] 06/13/2024 17:47:13 Hep B, adolescent or pediatric 4 completed Not Available [facility] 04/18/2025 17:17:44 Hep B, adolescent or pediatric 4 completed Not Available [facility] 04/18/2025 17:17:44 DTaP, unspecified formulation 4 completed Not Available [facility] 04/18/2025 17:17:44 Hib, unspecified formulation 4 completed Not Available [facility] 04/18/2025 17:17:44 IPV 4 completed Not Available [facility] 04/18/2025 17:17:44 DTaP, unspecified formulation 4 completed Not Available [facility] 04/18/2025 17:17:44 Hib, unspecified formulation 4 completed Not Available [facility] 04/18/2025 17:17:44 IPV 4 completed Not Available [facility] 04/18/2025 17:17:44 DTaP, unspecified formulation 4 completed Not Available [facility] 04/18/2025 17:17:44 Hib, unspecified formulation 4 completed Not Available [facility] 04/18/2025 17:17:44 IPV 4 completed Not Available [facility] 04/18/2025 17:17:44 varicella 5 completed Not Available [facility] 04/18/2025 17:17:44 MMR 5 completed Not Available [facility] 04/18/2025 17:17:44 Hep B, adolescent or pediatric 5 completed Not Available [facility] 04/18/2025 17:17:44 Hib, unspecified formulation 5 completed Not Available [facility] 04/18/2025 17:17:44 DTaP, unspecified formulation 6 completed Not Available [facility] 04/18/2025 17:17:44 MMR 8 completed Not Available [facility] 04/18/2025 17:17:44 IPV 8 completed Not Available [facility] 04/18/2025 17:17:44 DTaP, unspecified formulation 8 completed Not Available [facility] 04/18/2025 17:17:44 Tdap 5 completed Not Available [facility] 04/18/2025 17:17:44 meningococcal ACWY, unspecified formulation 5 completed Not Available [facility] 04/18/2025 17:17:44 varicella 5 completed Not Available [facility] 04/18/2025 17:17:44 MMR 5 completed Not Available [facility] 04/18/2025 17:17:44 Hep A, ped/adol, 2 dose 8 completed Not Available [facility] 04/18/2025 17:17:44 meningococcal MCV4P 0 completed Not Available [facility] 04/18/2025 17:17:44 Hep A, ped/adol, 2 dose 0 completed Not Available [facility] 04/18/2025 17:17:44 varicella 0 completed Not Available [facility] 04/18/2025 17:17:44 Influenza, split virus, quadrivalent, PF 3 completed Not Available [facility] 04/18/2025 17:17:44 Tdap 3 completed Not Available [facility] 04/18/2025 17:17:44 Influenza, split virus, trivalent, PF 4 completed Not Available [facility] 04/18/2025 17:17:44 Past Encounters Encounter ID Performer Location Encounter Start Date Encounter Closed Date Diagnosis/Indication Diagnosis SNOMED-CT Code Diagnosis ICD10 Code Diagnosis IMO Codes Diagnosis Note [id number] ISI Klein [facility] [address] [place] [address] 06/13/2024 17:19:15 06/13/2024 17:35:27 Narcolepsy 75821321 G47.419 Body mass index 25-29 - overweight 467312271 Z68.25 [id number] ISI Klein [facility] [address] [place] [address] 04/18/2025 17:16:47 04/18/2025 17:33:54 Refractory migraine 047561479 G43.919 79040063 Rest, fluidsTo ER if symptoms worsen or fail to resolve Health Concerns Section Related Observation LastModified by Organization Detai ls LastModified Time None Recorded Concern Status LastModified by Organization Details LastModified Time None Recorded Advance Directives Directive N: Payers Insurance Date Sequence Insurance Name Policy Number Policy Roach Covered Member ID Roach Member ID Guarantor Name 04/25/2025 1 WEI: ISAIAS [place] OF [id number] Karol Lockhart [id number] Karol Lockhart 04/25/2025 1 *SELF PAY* Jennifer gaurang Richy Notes Date Note Type Note Provider Name and Address Organization Details Recorded Time 06/13/2024 text/html Patient presents for followup. History of narcolepsy. Does well as long as she doesn't sit still. Still has trouble sitting still in class at times. Due for new sleep study with neurology. ISI Klein [address] [place] [address], [phone], [employer] 06/13/2024 17:55:29 04/18/2025 text/html ROS as noted in the HPI Patient has had a headache X 3 days and is requesting Toradol shot. MIld nausea. Headache not unlike previous headaches she has had. ISI Klein [address] [place], [address], [employer] 04/20/2025 13:26:57 OBGyn Episode No OBEpisode recorded.
[2025-05-30 13:55] LABS: Hematocrit 39.6 % (37.0-47.0); Hemoglobin 13.4 g/dL (12.2-16.2); Immature Granulocytes % 0.5 %; Mean Corpuscular HGB Conc 33.8 g/dL (31.8-35.4); Mean Corpuscular Hemoglobin 31.8 pg (27.0-31.2); Mean Corpuscular Volume 93.8 fl (81-99); Nucleated Red Blood Cells % 0 %; Platelet Count 260 K/mm3 (142-424); Red Blood Count 4.22 M/mm3 (4.20-5.40); Red Cell Distribution Width-SD 42.0 fL; White Blood Count 8.7 K/mm3 (4.8-10.8)
[2025-05-30 14:03] LABS: Alanine Aminotransferase 16 U/L (12-78); Albumin Level 4.3 g/dl (3.5-5.0); Albumin/Globulin Ratio 1.5 (1.1-1.8); Alkaline Phosphatase 52 U/L (38-126); Anion Gap 9.9 mEq/L (5-15); Aspartate Amino Transferase 23 U/L (14-36); Bilirubin,Total 0.7 mg/dl (0.2-1.3); Blood Urea Nitrogen 7 mg/dl (7-17); Calcium 8.9 mg/dl (8.4-10.2); Carbon Dioxide 26 mmol/L (22.0-30.0); Chloride 104 mmol/L (98-107); Creatinine,Serum 0.70 mg/dl (0.52-1.04); Estimated Glomerular Filt Rate 106 ml/min (>60); GFR (African American) 128 ML/MIN (>60); Globulin 2.9 g/dL (1.3-3.2); Glucose 99 mg/dl (74-100); Potassium 3.9 mmoL/L (3.5-5.1); Sodium 136 mmol/L (136-145); Total Protein,Serum 7.2 g/dl (6.3-8.2)
[2025-05-30 14:08] LABS: HCG Qualitative, Serum Negative (Negative)
== END 2025-05-30 23:59 | disposition home or self-care (01) ==
LOC: PREOP 13:04
PROVIDERS: PCP Physician Assistant; Visit Provider Obstetrics & Gynecology
DX: Z01.812 Encounter for preprocedural laboratory examination (principal)
CPT/HCPCS: 80053; 84703; 85025

== ENCOUNTER 2025-06-01 07:09 | Day surgery (SDC) | payer OTHER, SELFPAY ==
[2025-05-30 14:42] VITALS: BMI 26.2
[2025-06-01] VITALS (24 sets, daily range): BP systolic 90–121; BP diastolic 43–96; PULSE 64–103; RESP 16–22; TEMP 36.1–36.7; O2SAT 95–100
[2025-06-01] MEDS: LACTATED RINGERS 1000ML 1,000 ML 25 ML IV (08:15)
--- NOTE | 2025-06-01 08:16 | EXP.ANES.CKL ---
[facility] Disclaimer: The information contained in this section may have been updated after the patient was seen, as this information can be updated by other users. Medical History Bartholin's gland abscess Urinary tract infection Kidney stone Migraine Vitamin D deficiency Surgical History History of eye surgery History of surgical removal of Bartholin’s gland cyst History of tonsillectomy History of appendectomy Family History Other Family history of DVT Family history of stroke Social History Smoking Status: Never smoker second hand exposure: No alcohol intake: never substance use type: denies use current occupational status: employed and student Travel in the last 8 weeks?: None household members: family housing: house current occupation: [employer] current occupational exposures/hazards: No caffeine: Yes Have you lived/traveled outside US in past 30 days?: No Contact w/someone who lives/traveled outside US past 30 days?: No Exposure to someone with infectious disease in past 14 days?: No Do you have a fever (greater than 100.4 F or 38 C)?: No Have you tested positive for COVID-19?: No Exposed to someone with COVID-19 in past 14 days?: No Do you have a sore throat?: No Do you have a cough?: No Do you have any weakness?: No Do you have any diarrhea?: No Are you experiencing any unusual bleeding?: No Do you have any muscle aches/pain?: No Do you have any abdominal pain?: No Are you experiencing loss of taste or smell?: No [facility] Anesthesia Checklist Patient Identification Patient Identification: Arm Band and Verbal (Name & ) Structural Data Admitted From: Home Planned Operative Procedure/s: LEEP Consent for Planned Operative Procedure(s) Verified: Yes Verified Documents: Surgical Consent and History and Physical NPO Status Verified Time NPO: 00:00 Additional verifications Anesthesia Reactions: No Hx Blood Transfusions: No Blood Transfusion Reaction: No Airway Assessment Mallampati Score:: Class I Dentition: Good Dentition Neurological Assessment Level of Consciousness: Awake, Alert and Appropriate Hx Seizures: No Numbness or tingling in extremities: No Anesthesia Plan Anesthesia Risk discussed: Yes Anesthesia Plan: Verified ASA Class: I Anesthesia Type: General
[2025-06-01] MEDS: LIDOCAINE 1% W/EPI 1:100,000 20ML VIAL 20 ML ×2 (08:44→14:30)
--- NOTE | 2025-06-01 09:13 | EXP.ANES.I ---
[facility] Anesthesia Record Part I Anesthesia Record I Intake, IV Amount: 600 Hydration: Adequate Estimated blood loss (mL): 0 Urine output (mL): 0 Blood Products used (#): none Blood Pressure: 90/50 SaO2: 95 Pulse Rate: 74 Airway Patency: Patent Respiratory Rate: 16 Temperature: 97.0 F Patient is:: Oral/Nasal airway, Stable and Somnolent Stable to PACU at:: 09:10
[2025-06-01] MEDS: KETOROLAC 30MG/ML VIAL 30 MG IV (09:32)
[2025-06-01] MEDS: HYDROMORPHONE 2MG/ML SYRINGE 0.5 MG IV ×4 (09:39→09:55)
--- NOTE | 2025-06-01 10:03 | EXP.OP.NOTE ---
Date of procedure: 06/01/25 Pre-op Diagnosis:: 1. Pap smear on 02/28/2025: H RAIZA, transformation zone present 2. Colposcopy on 05/18/2025: Cervical biopsy at 12:00-BIENVENIDO-3. ECC-negative for intraepithelial lesion neoplasia Post-op Diagnosis:: 1. Pap smear on 02/28/2025: H RAIZA, transformation zone present 2. Colposcopy on 05/18/2025: Cervical biopsy at 12:00-BIENVENIDO-3. ECC-negative for intraepithelial lesion neoplasia Procedure performed:: Loop electrosurgical excisional procedure Surgeon:: Marian Dubon DO GUN SYNCHRONIZER:: Jamey Yeboah Anesthesia: MAC Estimated blood loss (mL): 5 Operative findings:: Small nulliparous cervix without any gross abnormalities Operative note:: The OR staff was properly equipped with HPV prophylaxis masks. The a coated bivalve speculum was placed in the vagina to identify the cervix. Cervix was prepped. 10mL of local was injected circumstantially around the cervix. Cervix was stained with Lugol's solution. Transformation zone noted in its entirety. A small apple core was used to obtain a specimen. Starting at 12:00 and exiting at 3:00. Following this starting at 3:00 the full specimen was completed and the second piece was intact. The roller ball cautery was used to cauterize the bed of the excised tissue and circumferentially around the lesion. Hemostasis was noted. Specimen was tagged with 1 suture at the 12 o'clock position and 2 sutures at the 3 o'clock position and sent to pathology for further evaluation Condition: stable Disposition: same day Specimens:: 1. Transformation zone of the cervix Complications:: None
--- NOTE | 2025-06-01 11:33 | SUR.PHASEII ---
1100: Spoke with Dr. Dubon's office requesting she come and see the patient regarding pain rating 10/10 after numerous doses of pain medication in the PACU and patient taking her own prescription for oxycodone. 1115: Waiting for response from Dr. Dubon. Sean Yeboah at bedside. No further orders for pain medication have been given. Sean suggested calling Dr. Dubon's office for a second time to come see the patient. 1120: Called Dr. Dubon's office again. Was assured by Nida that they would relay the message and call me back. 1125: Walked pt to BR. Pt was able to void a large amount. States pain is no better. Pt returned to bed to wait on Dr. Dubon.
[2025-06-01] MEDS: LIDOCAINE 2% UROJET 10ML 10 ML UR (12:20)
--- NOTE | 2025-06-01 12:21 | SUR.PHASEII ---
1205: Dr Dubon at bedside. See new orders.
--- NOTE | 2025-06-01 12:45 | SUR.PHASEII ---
1245- Dr Dubon in post op. Pt reports no improvement in pain. Dr Dubon ordered for pt to receive 600mg PO gabapentin x 1 now and reevaluate pain
[2025-06-01] MEDS: GABAPENTIN 600MG TABLET 600 MG PO (12:51)
--- NOTE | 2025-06-01 14:16 | SUR.PHASEII ---
1415: Dr. Dubon, María Cruz RN, Caryn Rossi RN, Zakia Tirado RN, Sean Yeboah CRNA in [place] ni[facility]ah [facility].
--- NOTE | 2025-06-01 14:20 | SUR.PHASEII ---
1402: Messaged Dr. Dubon with update. Pt still rating pain 10/10 even with all interventions. Sean Yeboah [employer]ICAL [employer] ADMINISTRAT[employer] WORK[employer] at bedside. Will proceed with Examination under Anesthesia at bedside in postop.
--- NOTE | 2025-06-01 14:26 | SUR.PHASEII ---
1419: Time out performed per this RN. 1424: Procedure start 1434: Procedure stop
--- NOTE | 2025-06-01 15:31 | P.PN_ITS ---
Subjective *Date: 06/01/25 *Time: 15:31 Interval history: I was called over and evaluated the patient around lunchtime she was having continued pain I did a topical lidocaine as well as gabapentin. I did also given Benadryl and Claritin in case she was having an allergic reaction to somet shawn that was used vaginally to cleanse her cervix. I was called back around 2:00 with the patient reporting continued extreme excruciating pain. At this time I returned to the bedside for an exam with anesthesia as the patient was unable to tolerate an exam without anesthesia secondary to pain. She reported a persistent vaginal burning. Denied any abdominal cramping contractions or pain. Stated that none of the pain medicine that we had given her previously had touched her pain. She was more groggy than when I evaluated her at 12:00 and the patient reported that this was secondary to the gabapentin. For this exam under anesthesia I brought my air defense artillery senior sergeant, Dr. Ulloa for evaluation as well. Large speculum was placed and the vaginal miranda were inspected thoroughly without any abnormalities noted. The LEEP bed was hemostatic and very appropriate for the postoperative timeframe. There was no bleeding, no oozing, no abnormalities. No complications were noted grossly. The cervix was injected circumferentially with 1% lidocaine with epinephrine followed by 20 mL of Neuropin for a paracervical block. I followed up on the patient 1 hour later and she was still drowsy and not complaining of pain at that time Exam Data for Last 24 hours Vital signs and Labs for Last 24 Hours: Temp Pulse Resp BP Pulse Ox O2 Del Method O2 Flow Rate 98 F 64 18 112/47 L 97 Nasal Cannula 4 06/01/25 10:10 06/01/25 15:18 06/01/25 15:18 06/01/25 15:18 06/01/25 15:18 06/01/25 15:18 06/01/25 15:18 I & O for Last 24 hours: Intake & Output 05/29/25 05/30/25 05/31/25 06/01/25 23:59 23:59 23:59 23:59 Intake Total 600 / 600 Balance 600 / 600 Weight 148 lb Narrative: Appropriate cervical appearance for the postoperative period. No abnormalities noted. No nuno to the vagina noted. 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 Patient will be reevaluated in 1 week in the office
--- NOTE | 2025-06-02 11:45 | P.PNANES_ITS ---
[facility] Anesthesia Record Part II Anesthesia Record Part II Discharge Time: 15:40 Destination: Surgical Day Care (OP Surgery) PACU nurse assessment reviewed?: Yes Patient Condition:: Good Anesthesia Complications:: None Swallowing reflex intact?: Yes Airway Patency: Patent Cyanosis?: No Blood Pressure: 110/78 SaO2: 97 Respiratory Rate: 16 Pulse Rate: 74 Temperature: 98.1 F Mental Status: Alert & Oriented Pain level:: 0 Nausea and/or vomitting:: None Intake, IV Amount: 0 Hydration: Adequate Comments:: Between OR case and discharge patient had an EUA with sedation in PACU for uncontrolled pain (05/05) with Dr. Dubon, pain was better controlled after EUA.
[2025-06-02 11:47] VITALS: BP 110/78; PULSE 74; RESP 16; TEMP 36.7; O2SAT 97
== END 2025-06-01 15:50 | disposition home or self-care (01) ==
PROVIDERS: PCP Physician Assistant; Visit Provider Obstetrics & Gynecology
PROC: 0UBC7ZZ Excision of Cervix, Via Natural or Artificial Opening (ICD-10-PCS; CPT 57522; principal; 2025-06-01 08:30)
DX: D06.9 Carcinoma in situ of cervix, unspecified (principal); Z88.1 Allergy status to other antibiotic agents; Z88.6 Allergy status to analgesic agent
CPT/HCPCS: 57522; J1100; J1171; J1885; J2003; J2004; J2250; J2405; J2704; J2795; J3010; J7120

== ENCOUNTER 2025-06-08 07:27 | Emergency (ER) | payer OTHER, SELFPAY ==
--- OUTSIDE RECORDS SUMMARY | 2025-05-02 14:40 | XMS_ITS | Encounter Summary ---
Author Organization [facility] Address [address] [place] [address] Care Team Providers Care Terra Cotta Roofer Name Role Phone Nataly Olvera ISI Primary Care Provider [phone] Reason for Referral * Consultation (Routine) - Authorized Specialty Diagnoses / Procedures Referred By Candy jain Referred To Contact Diagnoses Abdominal pain, right upper quadrant Emi Ruffin MD [address] [facility] [address] [place] [address] Phone: tel: fax: Referral ID Status Reason Start Date Expiration Date V isits Requested Visits Authorized [id number] Authorized 05/02/2025 11/01/2026 1 1 Reason for Visit * Reason Comments Diarrhea, unspecified type * Consultation (Routine) - Closed Specialty Diagnoses / Procedures Referred By Candy jain Referred To Contact Diagnoses Diarrhea, unspecified type Chandrakant Mar MD [address] [facility] [address] [place] [address] Phone: tel: fax: Referral ID Status Reason Start Date Expiration Date Visits Re quested Visits Authorized [id number] Closed 12/28/2024 06/29/2026 1 1 Encounter Details Date Type Department Care Team (Late st Contact Info) Description 05/02/2025 3:40 PM EDT Office Visit [place] [facility] [address] [place] [address] Sarbjit Coker MD [address] [place] [phone] Abdominal pain, right upper quadrant (Primary Dx) Social History Tobacco Use Types [...] Sign Reading Time Taken Comments Blood Pressure 108/74 05/02/2025 3:34 PM EDT Pulse 75 05/02/2025 3:34 PM EDT Temperature 36.8 C (98.2 F) 05/02/2025 3:34 PM EDT Respiratory Rate - - Oxygen Saturation 97% 05/02/2025 3:34 PM EDT Inhaled Oxygen Concentration - - Weight 68.7 kg (151 lb 7.3 oz) 05/02/2025 3:34 P M EDT Height 160 cm (5' 3 ) 05/02/2025 3:34 PM EDT Body Mass Index 26.83 05/02/2025 3:34 PM EDT documented in this encounter Miscellaneous Notes * Progress Notes - Sarbjit Coker MD - 05/02/2025 3:40 PM EDT Patient: Karol Lockhart Date of : 2005 Outpatient Gastroenterology and Hepatology clinic note Subjective: History of present illness: A 20 y.o. female with chronic abdominal pain, lower right before BM, and resolved after BM, and some upper abdominal pain here for follow up. She was last seen 4 month ago. Reports alternating loose and formed stool in one day. No GI bleed. Since last visit, she had capsule endoscopy which showed duodenal erythema and gastric erosions Diarrhea is better after starting metamucil, taking it every other day. Stopped amitriptyline aftera month because of worsening headaches. She tried xifaxan last year. Fecal calprotectin 400 in 10/2024 down to 5 in 02/2025 Workup showed low folate 3.3. started on folate. She does not eat red meat, mainly chicken. Can't think of any food that riggers her symptoms. Pain still in RUQ and lower abdomen. RUQ pain usually sharp, happens with eating and has been therefor years, lower abd pain usually improves with BM, usually crampy. EGD and colonoscopy with H.pylori gastritis, normal duodenal biopsy. s/p Pylera and omeprazole for 2 weeks in 01/2024 Negative colonic random bx 01/2024 CT enterography: normal HIDA scan : normal No NSAIDs Gained 13 lbs over the last year. Review of Systems: 14 point ROS reviewed and negative except as in HPI Past Medical History[1] Surgical History[2] Family History[3] Social History[4] Allergies[5] Current Medications[6] Objective: Visit Vitals BP 108/74 Pulse 75 Temp 36.8 ??C (98.2 ??F) Ht 1.6 m (5' 3 ) Wt 68.7 kg (151 lb 7.3 oz) SpO2 97% BMI 26.83 kg/m?? Smoking Status Never BSA 1.75 m?? Physical Examination: General Appearance: Awake, alert, oriented x 3, in no apparent distress Head: Normocephalic, atraumatic Lungs: Equal chest rise Heart: Normal HR Abdomen: Abdomen soft, non-tender. No rebound or guarding. No ascites, no [...] 12/02/2024 10:03 AM Assessment and Plan: A 20 y.o. female with chronic abdominal pain, lower right before BM, and resolved after BM, and some upper abdominal pain. EGD and colonoscopy with H.pylori gastritis, normal duodenal biopsy. s/p Pylera and omeprazole for 2 weeks in 01/2024 and eradication confirmed with a stool test per pt Negative colonic random bx 01/2024 CT enterography: normal HIDA scan : normal Capsule showed Gastric erythema. Duodenum erythema and small erosion Chronic abdominal pain and diarrhea alternating with normal bowel movement Elevated fecal calprotectin- more recent is normal Most likely IBS given extensive negative workup Plan - Will try Levsin as needed SL - continue probiotics and PPI - Avoid NSAIDs RTC 4 months or sooner if needed Patient seen by and discussed with Dr. Laly Coker MD GI Fellow, PGY-5 Pager: [phone] Answers submitted by the patient for this visit: Office Visit - GI on 05/02/2025 3:40 PM with Sarbjit Coker MD Abdominal Pain Questionnaire (Submitted on 05/01/2025) Chief Complaint: Abdominal pain Chronicity: chronic Onset: more than 1 year ago Onset quality: sudden Frequency: daily Episode duration: 12 Months Progression since onset: waxing and waning Pain location: RUQ, generalized abdominal region, suprapubic region Pain - numeric: 8/10 Pain quality: aching, cramping, sharp Radiates to: does not radiate anorexia: No arthralgias: No belching: No constipation: No diarrhea: Yes dysuria: No fever: No flatus: Yes frequency: No headaches: Yes hematochezia: No hematuria: No melena: No myalgias: No nausea: Yes weight loss: No vomiting: No Aggravated by: eating, vomiting Relieved by: nothing, certain positions [1] Past Medical History: Diagnosis Date Acute UTI (urinary tract infection) 11/14/21 Anxiety Brain concussion Fractures Wrist Headache Migraine Nausea & vomiting 08/12/19 Nystagmus Peptic ulceration Pharyngitis 06/11/23 Pyelonephritis 01/28/21 Refractive error Syncope 06/11/23 Urinary tract infection Vasovagal near-syncope 10/01/17 Viral upper respiratory illness 06/11/23 [2] Past Surgical History: Procedure Laterality Date ADENOIDECTOMY APPENDECTOMY N/A Appendectomy from [facility] BARTHOLIN GLAND CYST EXCISION 08/2024 EYE SURGERY INCISION AND DRAINAGE, ABCESS 05/2024 STRABISMUS SURGERY Bilateral 06/2022 TONSILECTOMY, ADENOIDECTOMY, BILATERAL MYRINGOTOMY AND TUBES N/A Tonsillectomy With Adenoidectomy from [facility] TONSILLECTOMY [3] Family History Problem Relation Name [...] in the comment field and Rash rash Ferrous Sulfate Other - please document in the comment field Ibuprofen Unknown - Patient states they do not know rxn details Nsaids Other - please document in the comment field [6] Current Outpatient Medications: amitriptyline (Elavil) 10 MG tablet, Take 1 tablet by mouth nightly. (Patient not taking: Reported on 02/13/2025), Disp: 30 tablet, Rfl: 6 busPIRone (Buspar) 5 MG tablet, , Disp: , Rfl: cyanocobalamin (Vitamin B-12) 1000 MCG/ML injection, , Disp: , Rfl: Drospirenone (Slynd) 4 MG tablet, Take by mouth., Disp: , Rfl: Fremanezumab-vfrm (Ajovy) 225 MG/1.5ML [...] on 12/28/2024), Disp: 9 tablet, Rfl: 0 modafinil (Provigil) 200 MG tablet, , Disp: , Rfl: qtokqsuq-ytuerxgxn-squkxnlfqlgmcgxfjr (Polydex) 3.5-78175-9.1 ointment ophthalmic ointment, Apply small amount to operative eye(s) 2 times per day for 1 week. (Patient not taking: Reported on 12/28/2024), Disp: 3.5 g, Rfl: 1 norethindrone (Micronor) 0.35 MG tablet, , Disp: , Rfl: oseltamivir (Tamiflu) 75 MG capsule, , Disp: , Rfl: oxyCODONE-acetaminophen (Percocet) 5-325 MG tablet, , Disp: , Rfl: propranolol LA (Inderal LA) 120 MG 24 hr capsule, , Disp: , Rfl: QuickVue At-Home Covid-19 Test kit, , Disp: , Rfl: Rimegepant Sulfate 75 MG tablet dispersible, Take 75 mg by mouth if needed (for acute headache, notmore than 1 tablet for 24 hours). (Patient not taking: Reported on 12/28/2024), Disp: 15 tablet, Rfl:1 Ubrelvy 100 MG tablet, Please take 1 tab at onset of headache and may repeat in 2 hours once for upto 10 times/month, Disp: 10 each, Rfl: 3 Xifaxan 550 MG tablet, Take 1 tablet (550 mg) by mouth 3 (three) times a day. (Patient not taking: Reported on 12/28/2024), Disp: , Rfl: Cosigned by Emi Ruffin MD at 05/09/2025 1:45 PM EDT Associated attestation - Emi Ruffin MD - 05/09/2025 1:45 PM EDT I saw and evaluated the patient with the resident/fellow. I discussed the case with the resident/fellow and agree with the findings and plan as documented. documented in this encounter Plan of Treatment Upcoming Encounters Date Type Department Care Team (Late st Contact Info) Description 11/21/2025 3:15 PM EDT Office Visit [facility] - Pediatrics [address] [place] [address] Slim Riley MD [address] [address] 11/28/2025 3:40 PM EDT Office Visit [facility] Medicine Specialties [address] [place] [address] Sarbjit Coker MD [address] [place] [address] Scheduled Referrals Name Type Priority Associated Diagnoses Orde r Schedule Follow Up GI Outpatient Referral Routine Abdominal pain, right upper quadrant Expected: 09/02/2025, Expires: 06/02/2026 documented as of this encounter Visit Diagnoses Diagnosis Abdominal pain, right upper quadrant- Primary documented in this encounter Additional Health Concerns Assessment Noted Time PHQ-9 Depression Total Score: 0 12/29/19 25 10:45 AM EDT A fall risk assessment has been complete d for the patient 05/02/2025 3:37 PM EDT A Body Mass Index follow-up plan has been documented for the patient 05/09/2025 1:45 PM EDT documented as of this encounter Care Teams Terra Cotta Roofer Relationship Specialty Start Date End Date Nataly Olvera PA [address] [place] [address] PCP - General 02/03/23 documented as of this encounter
[2025-06-08] VITALS (8 sets, daily range): BP systolic 110–132; BP diastolic 73–88; PULSE 67–95; RESP 16–22; TEMP 36.4–36.9; O2SAT 97–100; BMI 26.2
--- OUTSIDE RECORDS SUMMARY | 2025-06-08 07:39 | XMS_ITS | Clinical Summary ---
Author Organization [facility] Address [address] [place] [address] Care Team Providers Care Geosciences Professor Name Role Phone Nataly Olvera ISI Primary Care Provider [phone] Allergies Active Allergy Reactions Criticality Noted Date [...] taking.Reported on 05/02/2025 neomycin-polymyx in-dexamethameth asone (Polydex) 3.5-25475-2.1 ointment ophthalmic ointment Apply small amount to [...] Type Department Care Team Description 05/13/2025 Immunization [facility] [address] [place] [address] Nohemy Genao, RN Need for immunization against influenza (Primary Dx) 05/02/2025 3:40 PM EDT Office Visit [facility] Medicine [facility]ties [address] [place] [address] Sarbjit Coker MD Abdominal pain, right upper quadrant (Primary Dx) 05/02/2025 Travel 05/01/2025 Travel from Last 3 Months Immunizations Immunization [...] Description 11/21/2025 3:15 PM EDT Office Visit [facility] [address] [place] [address] Slim Riley MD [address] [place] [phone] 11/28/2025 3:40 PM EDT [facility] [address] [place] [phone] Sarbjit Coker MD [address] [place], [place] [phone] Health Maintenance Due Date Last Done Comments [facility]-Infant/Child/Adol SDOH Screenings 2004 [id number] Vaccine (#1) 01/21/2009 HPV Vaccines (1 - [...] Procedure Name Priority Date/Time Associated Diagnosis Comments HEPATITIS C ANTIBODY - ED W/REFLEX TO HCV QUANT PCR STAT 01/28/2023 6:03 PM EDT HIV 1/2 ANTIBODY/ANTIGEN SCREEN WITH REFLEX TO HIV I/II DIFFERENTIATION STAT 01/28/2023 6:03 PM EDT CHLAMYDIA TRACHOMATIS DNA BY PCR STAT 01/06/2021 6:33 PM EDT from Last 3 Months or Most Recently Relevant to Health Maintenance Results * HIV 1 & 2 Antibody/Antigen Screen (01/28/2023 6:03 PM EDT) Pathologist [facility] HIV 1 & 2 Antibody/Antigen Screen Non Reactive Non Reactive 01/28/2023 7:03 PM EDT HEALTHCARE LAB Comment:Screening for HIV 1 & 2 antibodies, and P24 antigen is NONREACTIVE. No confirmatory testing is required. Blood Venous blood specimen / Unknown Venipuncture / Unknown 01/28/2023 6:03 PM EDT 01/28/2023 6:21 PM EDT Jack Bradford MD LAB BLOOD ORDERABLES Final Res ult Performing Organization Address City/[facility]/ZIP Co de Phone Number HEALTHCARE LAB [address] [place] [address] * Hepatitis C Antibody - ED (01/28/2023 6:03 PM EDT) Pathologist [facility] Hepatitis C Antibody Negative Negative 01/28/2023 7:05 PM EDT HEALTHCARE LAB Blood Venous blood specimen / Unknown Venipuncture / Unknown 01/28/2023 6:03 PM EDT 01/28/2023 6:21 PM EDT Jack Bradford MD LAB BLOOD ORDERABLES Final Res ult [facility] [address] [place] [address] * Chlamydia trachomatis by PCR (01/06/2021 6:33 PM EDT) Pathologist [facility] Chlamydia trachomatis DNA PCR Result Not Detected Not Detected 01/07/2021 1:25 PM EDT [facility] Urine Urine specimen obtained by clean catch procedure / Unknown Non-blood Collection / Unknown 01/06/2021 6:33 PM EDT 01/06/2021 7:00 PM EDT Narrative [facility] - 01/07/2021 1:25 PM EDT This test is performed by the [employer] m2000 instrument for Real Time PCR C. trachomatis and N. gonorrhea. This test is FDA approved for use with endocervical, vaginal, and urine specimens. This test is used for clinical purposes. It should not be regarded as invesigational or for research. The [facility] Clinical Microbiology Laboratory is certified under the Clinical Laboratory Improvement Amendments of 1988 (CLIA-88) as qualified to perform high complexity clinical laboratory testing. us Brittani Fajardo MD LAB MICROBIOLOGY - GENERAL [facility] Final Result [facility] [address] [place] [phone] from Last 3 Months or Most Recently Relevant to Health Maintenance Insurance [facility] MEDICAID [id number] [id number] [place] [id number] Advance Directives * Full Code (Latest Code Status on File) Date Activated Date Inactivated Comments 01/23/2021 2:35 AM 01/28/2021 4:43 PM Question Answer Comments Patient has decision-making capacity? No Healthcare Surrogate: Parent(s) of the patient Care Teams Geosciences Professor Relationship Specialty Start Date End Date Nataly Olvera PA [address] [place] [address] PCP - General 02/03/23
--- OUTSIDE RECORDS SUMMARY | 2025-06-08 07:39 | XMS_ITS | Clinical Summary ---
Author Organization [facility] Address [address] [place] [address], [address] [place] [address] Care Team Providers Care Cdl A Driver Name Role Phone Unavailable Primary Care Provider [...] Plan [place] [id number]
--- OUTSIDE RECORDS SUMMARY | 2025-06-08 07:40 | XMS_ITS | Data Portability ---
Author Organization [facility] Address [address] [place] [address] Assessment No assessment recorded. Plan of Treatment Reminders Order Date Submit Date Provider Last Modified By Organization Details Last Modified Time Details Appointments None recorded. Lab None recorded. Referral None recorded. Procedures None recorded. Surgeries None recorded. Imaging None recorded. Medication Orders ketorolac 60 mg/2 mL intramuscul ar solution 2024 025 [email or web address] [facility], [address], [address], 5 13:25:54 Provigil 200 mg tablet 2023 024 [id number], [address], [id number], 4 17:40:16 Patient TargetsNo targets recorded. Patient Instructions Encounter Date Encounter Id Patient Instructions Last Modified By Organization Details Last Modified Time 06/13/2024 [id number] learning about healthy weight [email or web address] Not available 06/13/2024 17:55:26 narcolepsy: care instructions [email or web address] Not available 06/13/2024 17:40:08 Reason for Referral None Reported. Results Created Date Observation Date Name Description Value Unit Range Abnormal Flag Note LastModifiedBy Organization Detail LastModifiedTime Result Notes None recorded. Problems Name Problem SNOMED Code Status Onset Date Resolution Date Notes Provider Name and Address Organization Details Recorded Time Narcolepsy 13654760 Active 024 ISI Klein [address] [place] [address], [address], [employer] 5 17:35:11 Refractory migraine 500045555 Active Velia ISI Klein [address] [place], [address], [employer] 5 13:26:11 Problem Notes None recorded. Procedures Surgical History Date Name Laterality Status Provider Name and Address Organization Details Recorded Time Appendectomy completed [employer] 06/13/2024 17:26:06 Eye Surgery completed [employer] 06/13/2024 17:26:06 Tonsillectomy completed [employer] 06/13/2024 17:26:06 Imaging Results None recorded. Procedure Notes None recorded. Medical Equipment None Reported. Allergies Allergen ID Allergen Name Allergen Category Reaction Reaction Severity Criticality Documentation Date Start Date Code Code System Note Provider Name and Address Organization Details Recorded Time 94880 azithromy namrata medicatio n Not available Not available Not available 06/13/2024 14278 RxNorm Su Belinda [employer], [employer] 4 17:23:31 83427 ibuprofen medicatio n Not available Not available Not available 06/13/2024 5640 RxNorm Emergent Viewsdue [employer], [employer] 4 17:23:41 27487 ferrous sulfate medicatio n Not available Not available Not available 06/13/2024 45576 RxNorm Su Belinda [employer], [employer] 4 17:24:19 Medications Name Sig Start [...] Updated DateTime 5 160.02 cm 26.4 kg/m2 18545.9 8 g 98 % 98 % 64 /min 98.5 [degF] 108/72 mm[Hg] Anju Back [facility] 5 17:23:16 Date Recorded Body height Body mass index (BMI) [Percentile] Per age and sex Body mass index (BMI) Body weight Body temperature Oxygen saturation Oxygen saturation in Arterial blood by Pulse oximetry Heart rate Systolic And Diastolic Provider Name and Address Organization Details Last Updated DateTime 4 160.02 cm 79 % 25.2 kg/m2 61010.8 2 g 98 [degF] 98 % 98 % 99 /min 101/67 mm[Hg] Su Trevino [facility] 4 17:29:22 Social History Question Answer Notes LastModified by Organizat ion Details LastModified Time Tobacco Smoking Status Never Smoker Susonja Trevino [employer] 06/13/2024 17:25:58 Do You Have An Advance [...] Information not available 06/13/2024 What Type Of Manager Compliance Do You Use? None Information not available [...] not available 06/13/2024 Who Is Your Employer? [employer] Information not available 06/13/2024 Have There [...] Do You Have A Medical Power Of Flight Test Supervisor? No Information not available 06/13/2024 What Was [...] anxious, or unable to sleep at night)? [id number] Information not available 06/13/2024 Do you have [...] Recorded Time Tdap 3 completed ISI Klein [address] [place] [address], [address], [facility] [employer] 06/13/2024 17:47:13 Hep B, adolescent or pediatric 4 completed Not Available [employer] 04/18/2025 17:17:44 Hep B, adolescent or pediatric 4 completed Not Available [facility] 04/18/2025 17:17:44 DTaP, unspecified formulation 4 completed Not Available [employer] 04/18/2025 17:17:44 Hib, unspecified formulation 4 completed Not Available [facility] 04/18/2025 17:17:44 IPV 4 completed Not Available [facility] 04/18/2025 17:17:44 DTaP, unspecified formulation 4 completed Not Available [facility] 04/18/2025 17:17:44 Hib, unspecified formulation 4 completed Not Available [facility] 04/18/2025 17:17:44 IPV 4 completed Not Available [facility] 04/18/2025 17:17:44 DTaP, unspecified formulation 4 completed Not Available [facility] 04/18/2025 17:17:44 Hib, unspecified formulation 4 completed Not Available [facility] 04/18/2025 17:17:44 IPV 4 completed Not Available [facility] 04/18/2025 17:17:44 varicella 5 completed Not Available [facility] 04/18/2025 17:17:44 MMR 5 completed Not Available [facility] 04/18/2025 17:17:44 Hep B, adolescent or pediatric 5 completed Not Available [facility] 04/18/2025 17:17:44 Hib, unspecified formulation 5 completed Not Available [facility] 04/18/2025 17:17:44 DTaP, unspecified formulation 6 completed Not Available [facility] 04/18/2025 17:17:44 MMR 8 completed Not Available [facility] 04/18/2025 17:17:44 IPV 8 completed Not Available [facility] 04/18/2025 17:17:44 DTaP, unspecified formulation 8 completed Not Available [facility] 04/18/2025 17:17:44 Tdap 5 completed Not Available [facility] 04/18/2025 17:17:44 meningococcal ACWY, unspecified formulation 5 completed Not Available [facility] 04/18/2025 17:17:44 varicella 5 completed Not Available [facility] 04/18/2025 17:17:44 MMR 5 completed Not Available [facility] 04/18/2025 17:17:44 Hep A, ped/adol, 2 dose 8 completed Not Available [facility] 04/18/2025 17:17:44 meningococcal MCV4P 0 completed Not Available [facility] 04/18/2025 17:17:44 Hep A, ped/adol, 2 dose 0 completed Not Available [facility] 04/18/2025 17:17:44 varicella 0 completed Not Available [facility] 04/18/2025 17:17:44 Influenza, split virus, quadrivalent, PF 3 completed Not Available [facility] 04/18/2025 17:17:44 Tdap 3 completed Not Available [facility] 04/18/2025 17:17:44 Influenza, split virus, trivalent, PF 4 completed Not Available [facility] 04/18/2025 17:17:44 Past Encounters Encounter ID Performer Location Encounter Start Date Encounter Closed Date Diagnosis/Indication Diagnosis SNOMED-CT Code Diagnosis ICD10 Code Diagnosis IMO Codes Diagnosis Note [id number] ISI Klein [facility] [address] [place] [address] 06/13/2024 17:19:15 06/13/2024 17:35:27 Narcolepsy 01643549 G47.419 Body mass index 25-29 - overweight 311905683 Z68.25 [id number] ISI Klein [facility] [address] [place] [address] 04/18/2025 17:16:47 04/18/2025 17:33:54 Refractory migraine 339296387 G43.919 06407309 Rest, fluidsTo ER if symptoms worsen or fail to resolve Health Concerns Section Related Observation LastModified by Organization Detai ls LastModified Time None Recorded Concern Status LastModified by Organization Details LastModified Time None Recorded Advance Directives Directive N: Payers Insurance Date Sequence Insurance Name Policy Number Policy Roach Covered Member ID Roach Member ID Guarantor Name 04/25/2025 1 [place]MO[place] [id number] Karol Lockhart [id number] Karol Lockhart 04/25/2025 1 *SELF PAY* Jennifer Lockhart Notes Date Note Type Note Provider Name and Address Organization Details Recorded Time 06/13/2024 text/html Patient presents for followup. History of narcolepsy. Does well as long as she doesn't sit still. Still has trouble sitting still in class at times. Due for new sleep study with neurology. ISI Klein [address] [place], [address], [employer] 06/13/2024 17:55:29 04/18/2025 text/html ROS as noted in the HPI Patient has had a headache X 3 days and is requesting Toradol shot. MIld nausea. Headache not unlike previous headaches she has had. ISI Klein [address] [place], [address], [employer] 04/20/2025 13:26:57 OBGyn Episode No OBEpisode recorded.
--- OUTSIDE RECORDS SUMMARY | 2025-06-08 07:40 | XMS_ITS | Continuity of Care Document ---
Author Organization [employer] Address [address] [place] [address] Assessment No assessment recorded. Plan of Treatment Reminders Order Date Submit Date Provider Last Modified By Organization Details Last Modified Time Details Appointments None recorded. Lab None recorded. Referral None recorded. Procedures None recorded. Surgeries None recorded. Imaging None recorded. Medication Orders ketorolac 60 mg/2 mL intramuscul ar solution [address], [address], [address], 13:25:54 Patient TargetsNo targets recorded. Patient InstructionsNo instructions recorded. Reason for Referral None Reported. Problems Name Problem SNOMED Code Status Onset Date Resolution Date Notes Provider Name and Address Organization Details Recorded Time Narcolepsy 53290001 Active 024 ISI Klein [address] [place] [address], [address], [employer] 17:35:11 Refractory migraine 683310354 Active 025 ISI Klein [address] [place] [address], [address], [employer] 13:26:11 Problem Notes None recorded. Procedures Surgical History Date Name Laterality Status Provider Name and Address Organization Details Recorded Time Appendectomy completed [employer] 06/13/2024 17:26:06 Eye Surgery completed [employer] 06/13/2024 17:26:06 Tonsillectomy completed Su Trevino [email or web address] 06/13/2024 17:26:06 Imaging Results None recorded. Procedure Notes None recorded. Medical Equipment None Reported. Allergies Allergen ID Allergen Name Allergen Category Reaction Reaction Severity Criticality Documentation Date Start Date Code Code System Note Provider Name and Address Organization Details Recorded Time 73001 azithromy namrata medicatio n Not available Not available Not available 06/13/2024 59714 RxNorm Su serrano, [employer] 17:23:31 08433 ibuprofen medicatio n Not available Not available Not available 06/13/2024 5640 RxNorm Susonja Trevino [employer], [employer] 17:23:41 71901 ferrous sulfate medicatio n Not available Not available Not available 06/13/2024 38442 RxNorm Susonja Trevino [employer], [employer] 17:24:19 Medications Name Sig Start Date Stop [...] Last Updated DateTime 160.02 cm 26.4 kg/m2 34320.9 8 g 98 % 98 % 64 /min 98.5 [degF] 108/72 mm[Hg] Anju Back [employer] 17:23:16 Social History Question Answer Notes LastModified by Organizat ion Details LastModified Time Tobacco Smoking Status Never Smoker Su Belindaann serrano [employer] 06/13/2024 17:25:58 Do You Have An Advance [...] Information not available 06/13/2024 What Type Of Processing Technologist Do You Use? None Information not available [...] not available 06/13/2024 Who Is Your Employer? [employer] Information not available 06/13/2024 Have There Been Any Changes To Your Family Or Social Situation? Yes Information no t available 06/13/2024 Are There Any Guns Present In Your Home? No Information not available 06/13/2024 Which Of Your Hands Is Dominant? Right Information not available 06/13/2024 What Is Your Home Situation? Both Parents Information not available 06/13/2024 Do You Have A Medical Power Of Monotype Caster? No Information not available 06/13/2024 What Was [...] anxious, or unable to sleep at night)? [id number] Information not available 06/13/2024 Do you have [...] available 2023 17:25:03 Medical History Condition Response GI Problems Y Anxiety Disorder Y Bladder or Kidney Problems Y Headaches Y Gynecological History Statement/Question Response Date of LMP 02/04/2022 Menses Monthly N HPV Vaccine N Date of Last Pap Smear Current Control Method BCPs Most Recent Mammogram Obstetrics History GPAL:G 0 P 0 0 0 0 Immunizations Vaccine Type Date Status Note Provider Nam e and Address Organization Details Recorded Time Tdap 3 completed ISI Klein [address] [place] [address], [address], [facility] [employer] 06/13/2024 17:47:13 Hep B, adolescent or pediatric 4 completed Not Available [facility] 04/18/2025 17:17:44 Hep B, adolescent or pediatric 4 completed Not Available [facility] 04/18/2025 17:17:44 DTaP, unspecified formulation 4 completed Not Available [facility] 04/18/2025 17:17:44 Hib, unspecified formulation 4 completed Not Available [facility] 04/18/2025 17:17:44 IPV 4 completed Not [...] adolescent or pediatric 5 completed Not Available [facility] 04/18/2025 17:17:44 Hib, unspecified formulation 5 completed Not Available [facility] 04/18/2025 17:17:44 DTaP, unspecified formulation 6 completed Not Available [facility] 04/18/2025 17:17:44 MMR 8 completed Not Available [facility] 04/18/2025 17:17:44 IPV 8 completed Not Available [facility] 04/18/2025 17:17:44 DTaP, unspecified formulation 8 completed Not Available [facility] 04/18/2025 17:17:44 Tdap 5 completed Not Available [facility] 04/18/2025 17:17:44 meningococcal ACWY, unspecified formulation 5 completed Not Available [facility] 04/18/2025 17:17:44 varicella 5 completed Not Available [facility] 04/18/2025 17:17:44 MMR 5 completed Not Available [facility] 04/18/2025 17:17:44 Hep A, ped/adol, 2 dose 8 completed Not Available [facility] 04/18/2025 17:17:44 meningococcal MCV4P 0 completed Not Available [facility] 04/18/2025 17:17:44 Hep A, ped/adol, 2 dose 0 completed Not Available [facility] 04/18/2025 17:17:44 varicella 0 completed Not Available [facility] 04/18/2025 17:17:44 Influenza, split virus, quadrivalent, PF 3 completed Not Available [facility] 04/18/2025 17:17:44 Tdap 3 completed Not Available [facility] 04/18/2025 17:17:44 Influenza, split virus, trivalent, PF 4 completed Not Available [facility] 04/18/2025 17:17:44 Past Encounters Encounter ID Performer Location Encounter Start Date Encounter Closed Date Diagnosis/Indication Diagnosis SNOMED-CT Code Diagnosis ICD10 Code Diagnosis IMO Codes Diagnosis Note [id number] ISI Klein [facility] [address] [place] [address] 04/18/2025 17:16:47 04/18/2025 17:33:54 Refractory migraine 157131688 G43.919 79243034 Rest, fluidsTo ER if symptoms worsen or fail to resolve Health Concerns Section Related Observation LastModified by Organization Detai ls LastModified Time None Recorded Concern Status LastModified by Organization Details LastModified Time None Recorded Payers Encounter Date Sequence Insurance Name Policy Number Policy Roach Covered Member ID Roach Member ID Guarantor Name 04/18/2025 1 [place] P[place] OF [facility] [place] MEDICAID (HMO) [id number] Karol Lockhart [id number] Karol Lockhart Notes Date Note Type Note Provider Name and Address Organization Details Recorded Time 04/18/2025 text/html ROS as noted in the HPI Patient has had a headache X 3 days and is requesting Toradol shot. MIld nausea. Headache not unlike previous headaches she has had. ISI Klein [address] [place] [address], [address], [facility] [employer] 04/20/2025 13:26:57 OBGyn Episode No OBEpisode recorded.
--- OUTSIDE RECORDS SUMMARY | 2025-06-08 07:40 | XMS_ITS | Encounter Summary ---
Author Organization Healthcare Address [address] [place] [address] Care Team Providers Care Beam Worker Name Role Phone WadeNataly ISI Primary Care Provider [phone] Encounter Details Date Type Department Care Team (Late st Contact Info) Description 05/13/2025 Immunization [facility] [address] [place] [address] Nohemy Genao SECURITY EXPERT Need for immunization against influenza (Primary Dx) [...] 3:15 PM EDT [facility] [address] [place] [address] Slim Riley MD [address] [address] 11/28/2025 3:40 PM EDT Office Visit [facility] Medicine Specialties [address] [place] [address] Sarbjit Coker MD [address] [place] [address] documented as of this encounter [...] documented as of this encounter Care Teams Beam Worker Relationship Specialty Start Date End Date Nataly Olvera PA [address] [place] [address] PCP - General 02/03/23 documented as of this encounter
--- OUTSIDE RECORDS SUMMARY | 2025-06-08 07:40 | XMS_ITS | Encounter Summary ---
Author Organization Healthcare Address [address] [place] [address] Care Team Providers Care Beater Out Name Role Phone WadeNataly ISI Primary Care Provider [phone] Encounter Details Date Type Department Care Team [...] Description 11/21/2025 3:15 PM EDT Office Visit [facility] [address] [facility] [place] [address] Slim Riley MD [address] [place] [address] 11/28/2025 3:40 PM EDT Office Visit [facility] [address] [place] [address] Sarbjit Coker MD [address] [place] [address] documented as of this encounter Visit [...] documented as of this encounter Care Teams Beater Out Relationship Specialty Start Date End Date Nataly Olvera PA [address] [place] [address] PCP - General 02/03/23 documented as of this encounter
--- OUTSIDE RECORDS SUMMARY | 2025-06-08 07:40 | XMS_ITS | Encounter Summary ---
Author Organization Healthcare Address [address] [place] [address] Care Team Providers Care Refrigerating Machine Operator Name Role Phone Nataly Olvera ISI Primary Care Provider Encounter Details Date Type Department Care Team (Late st Contact Info) Description 02/03/2024 Lab Requisition [facility] [address] [place] [address] Anuj Guy MD [address] [facility] [address] [place] [address] Diarrhea, unspecified Social History Tobacco Use Types [...] Description 11/21/2025 3:15 PM EDT Office Visit [facility] [address] [place] [address] Slim Riley MD 110 [facility] [address] [place] [address] 11/28/2025 3:40 PM EDT Office Visit [facility] [address] [place] [address] Sarbjit Coker MD [address] [place] [address] documented as of this encounter Procedures Procedure Name Priority Date/Time Associated Diagnosis Comments SURGICAL PATHOLOGY EXAM Routine 02/03/2024 Diarrhea, unspecified documented in this encounter Results * Surgical Pathology Exam (02/03/2024) Case Report Surgical Pathology Case: [id number] Authorizing Provider: Anuj Guy MD Collected: 02/03/2024 Ordering Location: [facility] Lab Received: 02/03/2024 1035 Pathologist: Emmanuel Thomas MD Specimens: A) - Duodenum, duodenal biopsy B) - Gastric, gastric biopsy C) - Colon, random colon biopsy D) - Sigmoid Colon, sigmoid polyp 02/05/2024 8:25 AM EDT [facility] Final Diagnosis A. DUODENUM, BIOPSY: - NO PATHOLOGIC ABNORMALITY - NO EVIDENCE OF VILLOUS ABNORMALITY OR INTRAEPITHELIAL LYMPHOCYTOSIS B. STOMACH, BIOPSY: - H. PYLORI GASTRITIS - NEGATIVE FOR INTESTINAL METAPLASIA OR DYSPLASIA C. COLON, RANDOM, BIOPSY: - NO PATHOLOGIC ABNORMALITY; NO EVIDENCE OF MICROSCOPIC COLITIS D. SIGMOID COLON, POLYP, BIOPSY: - HYPERPLASTIC POLYP 02/05/2024 8:25 AM EDT [facility] at 0825 EDT Clinical Information Diarrhea, unspecified Nausea Abdominal pain History of ulcers Dyspepsia 02/05/2024 8:25 AM EDT [facility] Gross Description A. DUODENAL BIOPSY Received in formalin labeled d uodenal biopsy , are 5 singh-red soft tissue fragments measuring 0.2-0.5 cm in greatest dimension. Specimen submitted entirely in cassette A1. Cold Time: 0 Ch[address] B. GASTRIC BIOPSY Received in formalin labeled g astric biopsy , are 4 singh-red soft tissue fragments measuring 0.2-0.3 cm in greatest dimension. Specimen submitted entirely in cassette B1. Cold Time: 0 Chy[address]t C. RANDOM COLON BIOPSY Received in formalin [...] cassette D1. Cold Time: 0 Chyann R Routt 02/05/2024 8:25 AM EDT [facility] Tissue [...] LAB PATHOLOGY ORDERABLES Final Result [facility] [address] [place] [address] documented in this encounter Visit Diagnoses Diagnosis Diarrhea, unspecified documented in this encounter Additional Health Concerns Assessment Noted Time A fall risk assessment has been complete d for the patient 12/17/2023 10:32 AM EDT A Body Mass Index follow-up plan has been documented for the patient 12/24/2023 12:11 PM EDT documented as of this encounter Care Teams Refrigerating Machine Operator Relationship Specialty Start Date End Date Nataly Olvera PA [address] [place] [address] PCP - General 02/03/23 documented as of this encounter
--- OUTSIDE RECORDS SUMMARY | 2025-06-08 07:40 | XMS_ITS | Encounter Summary ---
Author Organization Healthcare Address [address] [place] [address] Care Team Providers Care Barrel Stave Inspector Name Role Phone WadeNataly ISI Primary Care Provider [phone] Encounter Details Date Type Department Care Team [...] Description 11/21/2025 3:15 PM EDT Office Visit [facility] [address] [facility] [place] [address] Slim Riley MD [address] [place] [address] 11/28/2025 3:40 PM EDT Office Visit [place] [facility] [address] [place] [address] Sarbjit Coker MD [address] [place] [address] documented as of this encounter Visit [...] documented as of this encounter Care Teams Barrel Stave Inspector Relationship Specialty Start Date End Date Nataly Olvera PA [address] [place] [address] PCP - General 02/03/23 documented as of this encounter
--- NOTE | 2025-06-08 07:45 | HMH.EDGENADL ---
Discharge Plan Disposition Patient Disposition: Home, Self-Care Prescriptions Prescriptions: No Action psyllium husk (with sugar) [Fiber Therapy (psyllium-sucro)] 3 gram/7 gram powder 1 ea PO DAILY Slynd 4 mg (28) tablet 4 mg PO DAILY Qty: 84 4RF folic acid 20 mg capsule 20 mg PO DAILY cholecalciferol (vitamin D3) 50 mcg (2,000 unit) capsule 50 mcg PO DAILY modafinil [Provigil] 200 mg tablet 200 mg PO DAILY Qty: 30 0RF propranolol 120 mg capsule,extended release 24 hr 120 mg PO DAILY Rx Instructions: TAKE 1 CAPSULE BY MOUTH ONCE DAILY sennosides [Senna Lax] 8.6 mg Tablet 8.6 mg PO BIDP PRN (Reason: Constipation) Qty: 60 2RF ibuprofen 800 mg tablet 800 mg PO Q8H PRN (Reason: pain) Qty: 60 2RF acetaminophen 500 mg tablet 500 mg PO Q6H PRN (Reason: fever or pain) Qty: 30 3RF oxycodone 5 mg tablet 5 mg PO Q8H PRN (Reason: pain) Qty: 5 0RF oxycodone 5 mg tablet 5 mg PO Q8H PRN (Reason: pain) Qty: 10 0RF gabapentin 300 mg capsule 300 mg PO HS Qty: 7 0RF Referrals Follow up/Referrals: Nataly Olvera PA [Primary Care Provider, Medical] - See instructions Clinical Impressions Clinical Impression: Near syncope, Dehydration, mild Print Language Print Language: Turkish Discharge ED Provider: Herberth Ram General Adult HPI General Chief complaint: Dizziness Stated complaint: lightheaded Time Seen by Provider: 06/08/25 07:29 Mode of Arrival: Ambulatory Source of Information: Patient Description of Symptoms (Recalled from ER Triage Doc. by RN): PATIENT PRESENTS TO ED FOR DIZZINESS AND NAUSEA FOR APPROX. 45 MINUTES. PT REPORTS SHE THINKS SHE WOULD FEEL BETTER IF SHE PASSED OUT. STATES THIS WAS SUDDEN ONSET SHE GOT IN HER CAR THIS MORNING. PT REPORTS SHE HAD A LEEP PROCEDURE DONE LAST THURSDAY BUT HAS DONE FINE POST-OP. History of Present Illness HPI narrative: Patient is a 20-year-old female without any significant past medical history who presents today with lightheadedness and near syncope and nausea. States she was in her normal state of health this morning when she began to feel the symptoms approximately 45 minutes ago. She is a geriatric nursing assistant in our hospital. Has not lost consciousness today or at any point in the past. No history of any cardiac disorders in the past nor any family history of anything significant at young ages. She did have a LEEP procedure done but is done well since that time and is not having any significant bleeding. Denies any preceding symptoms such as feeling ill sick contacts nausea vomiting diarrhea febrile illnesses etc. Of note she is getting very minimal sleep at night where she is falling asleep around 11 PM waking up at 5 AM and having caffeine in the mornings and then taking naps throughout the day. She is followed by neurology and has had sleep studies in the past. She is on medications for this. Related Data Home Medications ?Medication ?Instructions ?Recorded ?Confirmed propranolol 120 mg capsule,24 120 mg PO DAILY 05/08/24 06/01/25 hr,extended release psyllium husk (with sugar) 3 1 ea PO DAILY 06/22/24 06/01/25 gram/7 gram oral powder (Fiber Therapy (psyllium husk-sucrose)) cholecalciferol (vitamin D3) 50 50 mcg PO DAILY 05/25/25 06/01/25 mcg (2,000 unit) capsule folic acid 20 mg capsule 20 mg PO DAILY 05/25/25 06/01/25 Previous Rx's ?Medication ?Instructions ?Recorded Provigil 200 mg tablet (modafinil) 200 mg PO DAILY #30 tabs 04/15/24 drospirenone (contraceptive) 4 mg 4 mg PO DAILY control #84 02/22/25 (28) tablet (Slynd) tabs acetaminophen 500 mg tablet 500 mg PO Q6H PRN fever or pain 06/01/25 #30 tabs gabapentin 300 mg capsule 300 mg PO HS #7 caps 06/01/25 ibuprofen 800 mg tablet 800 mg PO Q8H PRN pain #60 tabs 06/01/25 oxycodone 5 mg tablet 5 mg PO Q8H PRN pain #10 tabs 06/01/25 oxycodone 5 mg tablet 5 mg PO Q8H PRN pain #5 tabs 06/01/25 sennosides 8.6 mg tablet (Senna 8.6 mg PO BIDP PRN Constipation 06/01/25 Lax) #60 tabs Allergies Allergy/AdvReac Type Severity Reaction Status Date / Time azithromycin (From ZITHROMAX) Allergy Mild Rash Verified 06/01/25 07:47 ibuprofen AdvReac Other Verified 06/01/25 07:47 PFSH [facility] Disclaimer: The information contained in this section may have been updated after the patient was seen, as this information can be updated by other users. Medical History Bartholin's gland abscess Urinary tract infection Kidney stone Migraine Vitamin D deficiency Surgical History History of eye surgery History of surgical removal of Bartholin’s gland cyst History of tonsillectomy History of appendectomy Family History Other Family history of DVT Family history of stroke Social History Smoking Status: Never smoker second hand exposure: No alcohol intake: never substance use type: denies use current occupational status: employed and student Travel in the last 8 weeks?: None household members: family housing: house current occupation: [employer] current occupational exposures/hazards: No caffeine: Yes Have you lived/traveled outside [place] in past 30 days?: No Contact w/someone who lives/traveled outside [place] past 30 days?: No Exposure to someone with infectious disease in past 14 days?: No Do you have a fever (greater than 100.4 F or 38 C)?: No Have you tested positive for COVID-19?: No Exposed to someone with COVID-19 in past 14 days?: No Do you have a sore throat?: No Do you have a cough?: No Do you have any weakness?: No Do you have any diarrhea?: No Are you experiencing any unusual bleeding?: No Do you have any muscle aches/pain?: No Do you have any abdominal pain?: No Are you experiencing loss of taste or smell?: No Other Medical History Have you received the Flu Vaccine for this season: No Have you received the Pneumonia Vaccine: No ROS Obtained: Yes All systems reviewed & no additional complaints except as documented Physical Exam General General appearance: alert and in no apparent distress Respiratory Respiratory exam: Present normal lung sounds bilaterally Cardiovascular Cardiovascular exam: Present regular rate and normal rhythm Neurological Exam Neurological exam: Present alert, oriented X3 and other (Nonfocal) Medical Decision Making Medical Records Screening: Per USPSTF and CDC recommendations, given the prevalence of disease in our region, it is our hospital?s policy to screen for HIV and viral Hepatitis for all patients aged 18 and over and those with ongoing risk factors. Yonathan Inquiry Pt receiving controlled substance: No Vital Signs: 06/08/25 07:30 06/08/25 07:30 06/08/25 07:45 Temperature 98.4 F 98.4 F Temperature Source Oral Pulse Rate 95 H 92 H Pulse Rate [Right] 95 H Respiratory Rate 16 16 19 Blood Pressure 123/88 110/82 Blood Pressure [Right Arm] 123/88 Blood Pressure Mean [Right Arm] 99 02 Sat by Pulse Oximetry 99 99 99 06/08/25 08:02 06/08/25 08:15 06/08/25 08:30 Temperature Temperature Source Pulse Rate 88 70 79 Pulse Rate [Right] Respiratory Rate 17 22 18 Blood Pressure 124/73 112/74 117/75 Blood Pressure [Right Arm] Blood Pressure Mean [Right Arm] 02 Sat by Pulse Oximetry 97 100 100 06/08/25 08:45 Temperature Temperature Source Pulse Rate 74 Pulse Rate [Right] Respiratory Rate 17 Blood Pressure 132/83 Blood Pressure [Right Arm] Blood Pressure Mean [Right Arm] 02 Sat by Pulse Oximetry 100 Lab Data Lab results reviewed: Yes I reviewed the patient's lab results. Lab Results 06/08/25 07:51: WBC 8.8, RBC 4.77, Hgb 14.6, Hct 44.4, MCV 93.1, MCH 30.6, MCHC 32.9, RDW 12.4, Plt Count 254, MPV 11.2 H, Neut % (Auto) 62.7, Lymph % (Auto) 25.6, [place] % (Auto) 8.5, Eos % (Auto) 2.4, Baso % (Auto) 0.3, Neut # (Auto) 5.6, Lymph # (Auto) 2.3, [place] # (Auto) 0.8, Eos # (Auto) 0.2, Baso # (Auto) 0.0, Sodium 136, Potassium 4.0, Chloride 104, Carbon Dioxide 23, Anion Gap 13.0, BUN 11, Creatinine 0.80, Estimated Creat Clear 118, Estimated GFR 91, Est GFR ( Amer) 110, Glucose 94, Calcium 9.3, Magnesium 1.8, Total Bilirubin 0.5, AST 38 H, ALT 68, Alkaline Phosphatase 51, Total Protein 7.6, Albumin 4.7, Globulin 2.9, Albumin/Globulin Ratio 1.6, Serum HCG, Qual Negative 06/08/25 07:51 06/08/25 07:51 Orders (Tests/Meds): ED MEDICATIONS Discontinued Medications Generic Name Dose Route Start Last Admin Trade Name Shante PRN Reason Stop Dose Admin Lactated Ringer's 1,000 mls @ 999 mls/hr 06/08/25 07:45 06/08/25 09:17 Lactated Ringer's 1000 Ml Bag IV 06/08/25 08:45 Infused .Q1H1M THE[facility]ORE Infusion Ondansetron HCl 4 mg 06/08/25 07:42 06/08/25 08:00 Ondansetron 4mg/2ml Vial IV 06/08/25 07:43 4 mg ONCE ONE Administration ORDERS Category Date Time Status CBC w/Auto Diff [Complete Blood Count Auto Diff] Stat Lab 06/08/25 07:51 Completed CMP [Comprehensive Metabolic Panel] Stat Lab 06/08/25 07:51 Results HCG Qualitative, Serum Stat Lab 06/08/25 07:51 Completed Magnesium Stat Lab 06/08/25 07:51 Results TSH [Thyroid Stimulating Hormone] Stat Lab 06/08/25 07:51 Results Medical Decision Narrative: 20-year-old very well-appearing female without any significant cardiovascular risk factors presents today with near syncope. Very unlikely to be a pathologic arrhythmia. Will check electrolytes, TSH and basic blood work administer IV fluids and nausea medicine and reassess. Unlikely to find any emergent medical condition today. Possible that her poor sleep habits are contributory to her symptoms today but this is nonspecific. Neurologically she appears normal without any emergent conditions suspected. Will attempt to get her feeling better symptomatically and have her follow-up outpatient. Reassessment 938 labs unremarkable EKG was performed which I personally interpreted which shows a ventricular rate of 77 no acute ischemic changes noted no significant conduction abnormalities normal axis. Patient symptomatically felt much better after IV fluids likely mildly dehydrated. No other alternative explanation at the moment. I offered antiemetic prescription but she declined this. Patient was discharged in stable condition. Critical Care Critical Care Time Critical Care Time: No
--- NOTE | 2025-06-08 07:54 | ECG_ITS ---
APPROVED REPORT Exam: Resting ECG HR:77 bpm ECG Measurements Heart Rate 77 AXES AL 150 P 52 QRSd 94 QRS 55 QT 371 T 28 QTc 402 Conclusion SINUS RHYTHM NORMAL ECG UNCONFIRMED REPORT Electronically signed by : Enoc Ram, 06/12/2025 15:55:07
[2025-06-08] MEDS: LACTATED RINGERS 1000ML 1,000 ML 999 ML IV (07:59)
[2025-06-08] MEDS: ONDANSETRON 4MG/2ML VIAL 4 MG IV (08:00)
[2025-06-08 08:02] LABS: Hematocrit 44.4 % (37.0-47.0); Hemoglobin 14.6 g/dL (12.2-16.2); Immature Granulocytes % 0.5 %; Mean Corpuscular HGB Conc 32.9 g/dL (31.8-35.4); Mean Corpuscular Hemoglobin 30.6 pg (27.0-31.2); Mean Corpuscular Volume 93.1 fl (81-99); Nucleated Red Blood Cells % 0 %; Platelet Count 254 K/mm3 (142-424); Red Blood Count 4.77 M/mm3 (4.20-5.40); Red Cell Distribution Width-SD 43.0 fL; White Blood Count 8.8 K/mm3 (4.8-10.8)
--- NOTE | 2025-06-08 08:39 | PC.NURSE ---
Rounded on patient, assisted patient to bathroom at this time.
[2025-06-08 08:43] LABS: HCG Qualitative, Serum Negative (Negative)
[2025-06-08 09:29] LABS: Alanine Aminotransferase 68 U/L (12-78); Albumin Level 4.7 g/dl (3.5-5.0); Albumin/Globulin Ratio 1.6 (1.1-1.8); Alkaline Phosphatase 51 U/L (38-126); Anion Gap 13.0 mEq/L (5-15); Aspartate Amino Transferase 38 U/L (14-36); Bilirubin,Total 0.5 mg/dl (0.2-1.3); Blood Urea Nitrogen 11 mg/dl (7-17); Calcium 9.3 mg/dl (8.4-10.2); Carbon Dioxide 23 mmol/L (22.0-30.0); Chloride 104 mmol/L (98-107); Creatinine Clearance Estimated 118 mL/min (50-200); Creatinine,Serum 0.80 mg/dl (0.52-1.04); Estimated Glomerular Filt Rate 91 ml/min (>60); GFR (African American) 110 ML/MIN (>60); Globulin 2.9 g/dL (1.3-3.2); Glucose 94 mg/dl (74-100); Magnesium 1.8 mg/dl (1.6-2.3); Potassium 4.0 mmoL/L (3.5-5.1); Sodium 136 mmol/L (136-145); Total Protein,Serum 7.6 g/dl (6.3-8.2)
[2025-06-08 10:00] LABS: Thyroid Stimulating Hormone 0.86 uIU/mL (0.465-4.68)
== END 2025-06-08 10:05 | disposition home or self-care (01) ==
PROVIDERS: Emergency Provider Student in an Organized Health Care Education/Training Program; PCP Physician Assistant
DX: R55 Syncope and collapse (principal); E86.0 Dehydration
CPT/HCPCS: 80053; 83735; 84443; 84703; 85025; 93005; 96361; 96374; 99285; J2405; J7120